=== PATIENT | female | born 1990 | race Caucasian/White ===

== ENCOUNTER 2016-07-13 18:03 | Outpatient (CLI) | payer MEDICAID ==
[2016-07-13 18:44] LABS: APPEARANCE,URINE SLIGHTLY-CLOUDY; BILIRUBIN,URINE NEGATIVE (NEGATIVE); GLUCOSE, URINE NEGATIVE (NEGATIVE); KETONES,URINE NEGATIVE (NEGATIVE); LEUKOCYTE ESTERASE,URINE TRACE (NEGATIVE); NITRITE,URINE NEGATIVE (NEGATIVE); PROTEIN,URINE NEGATIVE (NEGATIVE); URINE SPECIFIC GRAVITY 1.012; UROBILINOGEN,URINE NEGATIVE mg/dL (<2.0)
[2016-07-13 18:59] LABS: URINE BARBITURATES SCREEN NEGATIVE; URINE METHADONE SCREEN NEGATIVE; URINE OPIATES LOW NEGATIVE; URINE PHENCYCLIDINE SCREEN NEGATIVE
--- NOTE | 2016-07-13 20:00 | L&D Flow Sheet ---
LD Flowsheet Datetime Report Generated by CPN: 07/13/2016 20:00 Datetime: 07/13/2016 19:21 Monitor Interventions for FHR: Ultrasound Adjusted (June Lattibeaudeir, RN) Datetime: 07/13/2016 19:20 Vaginal Exam Dilatation (cm): 0.0 (June Lattibeaudeir, RN) Effacement (%): 0 (June Lattibeaudeir, RN) Station: -3 (June Lattibeaudeir, RN) Exam by: Merari Esparza RN (June Lattibeaudeir, RN) Vaginal Bleeding: None (June Lattibeaudeir, RN) Cervix, Consistency: Firm (June Lattibeaudeir, RN) Cervix, Position: Posterior (June Lattibeaudeir, RN) Datetime: 07/13/2016 19:13 NBP Sys/Maureen/Mean (mmHg): 124 (QS system process) : 82 (QS system process) : 99 (QS system process) Pulse: 75 (QS system process) LaborFlag: Antepartum (QS system process) Datetime: 07/13/2016 18:43 Vital Signs Stage of : Antepartum (Pamela Begum, RN) NBP Sys/Maureen/Mean (mmHg): 136 (QS system process) : 87 (QS system process) : 108 (QS system process) Pulse: 79 (QS system process) Uterine Activity Monitor Mode: External (Pamela Begum, RN) Monitor Interventions for UA: [place] Adjusted (Pamela Begum, RN) Resting Tone (Palpate): Relaxed (Pamela Castillond, RN) Assessment A Monitor Mode: External US (Pamela Begum, RN) Monitor Interventions for FHR: Ultrasound Adjusted (Pamela Begum, RN) FHR Baseline Rate : 155 (Pamela Reedn Kel, RN) Pain Pain Scale: 1 (Pamela Begum, RN) Pain Presence: Intermittent (Pamela Begum, RN) Pain Type: Cramping; Pressure (Pamela Begum, RN) Pain Location: Abdomen (Pamela Begum, RN) Pain Goal: 1 (Pamela Begum, RN) Pain Relief Measures: Comfort Measures (Pamela Begum, RN) Vaginal Bleeding: None (Pamela Begum, RN) Maternal Assessment Level of Consciousness: Fully Conscious (Pamela Begum, RN) DTR's/Clonus: DTRs 1+; No Clonus (Pamela Begum RN) Headache: Denies (Pamela Begum RN) Nausea/Vomiting: Denies (Pamela Begum RN) RUQ Epigastric Pain: Denies (Pamela Begum RN) Patient Care Patient Position/Activity: Left Tilt; Low Fowlers (Pamela Begum RN) Comfort Measures: Family Support (Pamela Begum RN) I/O Interventions: Popsicle; Clear Liquids Given; Up to BR (Pamela Begum RN) Teaching Instructional Method: Verbal; Patient Instructed; Family/Support Person Instructed; Verbalized Understanding (Pamela Begum RN) Plan of Care: Plan of Care Discussed; Labor (Pamela Begum RN) Unit Routine: [place] to Room; Call [place]; Bed; Visiting Policy; Waiting Areas; Phone/Cell Phone Use; Unit Personnel; Handwashing; Monitoring; Safety/Fall Risk Prevention; Diet/Nutrition Services; Bathroom Privileges (Pamela Begum RN) Pain Management: Pain Scale/Goals; Comfort Measures (Pamela Begum RN) Related: Common Discomforts of ; Maternal Physical Changes; Maternal Emotional Changes; Nutrition; Hydration; Activity and Rest (Pamela Begum RN) Communication Communication: RN at Bedside; RN Reviewed Strip (Pamela Begum RN) LaborFlag: Antepartum (QS system process)
== END 2016-07-13 20:30 | disposition home or self-care (01) ==
LOC: LC 18:03
PROVIDERS: ATTEND Obstetrics & Gynecology
PROC: 4A1HXCZ Monitoring of Products of Conception, Cardiac Rate, External Approach (ICD-10-PCS; principal; 2016-07-13)
DX: O26.893 Other specified pregnancy related conditions, third trimester (principal); R10.9 Unspecified abdominal pain; Z3A.33 33 weeks gestation of pregnancy
CPT/HCPCS: 59025; 80307; 81001

== ENCOUNTER 2016-07-19 14:21 | Outpatient (CLI) | payer MEDICAID ==
[2016-07-19 15:42] LABS: ABSOLUTE BASOPHILS # (AUTO) 0.1 10^3/uL (0.0-0.2); ABSOLUTE EOSINOPHILS # (AUTO) 0.1 10^3/uL (0.0-0.6); ABSOLUTE LYMPHOCYTES (AUTO) 2.8 10^3/uL (0.5-4.7); ABSOLUTE MONOCYTES (AUTO) 0.5 10^3/uL (0.1-1.4); ABSOLUTE NEUT (AUTO) 7.5 10^3/uL (1.7-8.2); BASOPHILS % (AUTO) 0.5 % (0-2); EOSINOPHILS % (AUTO) 0.7 % (0-6); LYMPHOCYTES % (AUTO) 25.7 % (13-45); MEAN CORPUSCULAR HEMOGLOBIN 29.7 pg (27.0-33.4); MEAN CORPUSCULAR HGB CONC 34.3 g/dL (32.0-36.0); MEAN CORPUSCULAR VOLUME 87 fl (80-97); MONOCYTES % (AUTO) 4.6 % (3-13); RED BLOOD COUNT 4.03 10^6/uL (3.72-5.28); RED CELL DISTRIBUTION WIDTH 13.5 % (11.5-14.0); SEGMENTED NEUTROPHILS % (AUTO) 68.5 % (42-78)
[2016-07-19 15:58] LABS: ALANINE AMINOTRANSFERASE 18 U/L (9-52); ALBUMIN 3.2 g/dL (3.5-5.0); ALKALINE PHOSPHATASE 175 U/L (38-126); ANION GAP 10 (5-19); ASPARTATE AMINO TRANSFERASE 15 U/L (14-36); BILIRUBIN,TOTAL 0.3 mg/dL (0.2-1.3); BLOOD UREA NITROGEN 7 mg/dL (7-20); CALCIUM 9.4 mg/dL (8.4-10.2); CARBON DIOXIDE 24 mmol/L (22-30); CHLORIDE 104 mmol/L (98-107); CREATININE RESULT 0.69 mg/dL (0.52-1.25); GLUCOSE 107 mg/dL (75-110); LDH 387 U/L (313-618); POTASSIUM 3.7 mmol/L (3.6-5.0); SODIUM 137.9 mmol/L (137-145); TOTAL PROTEIN 6.3 g/dL (6.3-8.2); URIC ACID 6.9 mg/dL (2.5-6.2)
--- NOTE | 2016-07-19 16:00 | L&D Flow Sheet ---
LD Flowsheet Datetime Report Generated by CPN: 07/19/2016 16:00 Datetime: 07/19/2016 15:51 NBP Sys/Maureen/Mean (mmHg): 136 (QS system process) : 72 (QS system process) : 96 (QS system process) Pulse: 72 (QS system process) LaborFlag: Antepartum (QS system process) Datetime: 07/19/2016 15:36 NBP Sys/Maureen/Mean (mmHg): 120 (QS system process) : 62 (QS system process) : 83 (QS system process) Pulse: 67 (QS system process) LaborFlag: Antepartum (QS system process) Datetime: 07/19/2016 15:21 NBP Sys/Maureen/Mean (mmHg): 117 (QS system process) : 64 (QS system process) : 84 (QS system process) Pulse: 70 (QS system process) LaborFlag: Antepartum (QS system process) Datetime: 07/19/2016 15:06 NBP Sys/Maureen/Mean (mmHg): 131 (QS system process) : 83 (QS system process) : 103 (QS system process) Pulse: 80 (QS system process) LaborFlag: Antepartum (QS system process) Datetime: 07/19/2016 14:47 NBP Sys/Maureen/Mean (mmHg): 131 (QS system process) : 85 (QS system process) : 103 (QS system process) Pulse: 75 (QS system process) LaborFlag: Antepartum (QS system process) Datetime: 07/19/2016 14:43 Monitor Interventions for UA: [place] Adjusted (Chinyere Stoll RN) Resting Tone (Palpate): Relaxed (Chinyere Stoll RN) Monitor Mode: External US (Chinyere Stoll RN) Pain Scale: 0 (Chinyere Stoll RN) Pain Presence: None/Denies (Chinyere Stoll RN) Pain Type: N/A (Chinyere Stoll RN) Pain Goal: 1 (Chinyere Stoll RN) Pain Relief Measures: Comfort Measures (Chinyere Stoll RN) Membrane Status: Intact (Annotations: intact per patient) (Chinyere Stoll RN) Vaginal Bleeding: None (Chinyere Stoll RN) Level of Consciousness: Fully Conscious (Chinyere Stoll RN) DTR's/Clonus: DTRs 2+; No Clonus (Chinyere Stoll RN) Headache: Denies (Chinyere Stoll RN) Breath Sounds, Left: Clear and Equal (Chinyere Stoll RN) Breath Sounds, Right: Clear and Equal (Chinyere Stoll RN) Nausea/Vomiting: Denies (Chinyere Stoll RN) RUQ Epigastric Pain: Denies (Chinyere Stoll RN) Oxygen Method: Room Air (Chinyere Stoll RN) Patient Position/Activity: Right Tilt; Semi-Fowlers (Chinyere Stoll, RN) I/O Interventions: Clear Liquids Given (Chinyere tSoll, RN) Instructional Method: Verbal (Chinyere Stoll, RN) Plan of Care: Plan of Care Discussed (Chinyere Stoll, RN) Unit Routine: [place] to Room; Call [place]; Bed; Visiting Policy; Waiting Areas (Chinyere Stoll, RN) Related: Common Discomforts of (Chinyere Stoll, RN) LaborFlag: Antepartum (QS system process)
[2016-07-19 16:27] LABS: APPEARANCE,URINE CLOUDY; BILIRUBIN,URINE NEGATIVE (NEGATIVE); GLUCOSE, URINE NEGATIVE (NEGATIVE); KETONES,URINE TRACE mg/dL (NEGATIVE); LEUKOCYTE ESTERASE,URINE SMALL (NEGATIVE); NITRITE,URINE NEGATIVE (NEGATIVE); PROTEIN,URINE 30 mg/dL (NEGATIVE); URINE SPECIFIC GRAVITY 1.021; UROBILINOGEN,URINE NEGATIVE mg/dL (<2.0)
[2016-07-19 16:49] LABS: URINE BARBITURATES SCREEN NEGATIVE; URINE METHADONE SCREEN NEGATIVE; URINE PHENCYCLIDINE SCREEN NEGATIVE
[2016-07-19 16:59] LABS: URINE OPIATES LOW UNCONFIRMED POSITIVE
== END 2016-07-19 17:11 | disposition home or self-care (01) ==
LOC: LC 14:21
PROVIDERS: ATTEND Student in an Organized Health Care Education/Training Program
PROC: 4A1HXCZ Monitoring of Products of Conception, Cardiac Rate, External Approach (ICD-10-PCS; principal; 2016-07-19)
DX: Z34.93 Encounter for supervision of normal pregnancy, unspecified, third trimester (principal); Z36 Encounter for antenatal screening of mother; Z3A.33 33 weeks gestation of pregnancy
CPT/HCPCS: 59025; 36415; 83615; 84550; 85025; 80053; 81001; 80307; G0480 ×2

== ENCOUNTER 2016-07-29 17:12 | Outpatient (CLI) | payer MEDICAID ==
--- NOTE | 2016-07-29 18:17 | Non Stress Test Report ---
Non Stress Test Datetime Report Generated by CPN: 07/29/2016 18:17 DEMOGRAPHIC EGA NST: 34.6 EGA NST: 33.3 INDICATION Indication for Study: Ordered by Provider Indication for Study: Ordered by Provider Indication for Study (NST) Other: HTN MONITORING Monitor Explained: Monitor Explained; Test Explained; Patient Verbalized Understanding Monitor Explained: Monitor Explained; Test Explained; Patient Verbalized Understanding Time on Monitor: 07/29/2016 17:42 Time on Monitor: 07/19/2016 14:34 Time off Monitor: 07/29/2016 18:05 Time off Monitor: 07/19/2016 16:59 NST Duration: 23 NST Duration: 145 NST INTERVENTIONS NST Interventions: PO Hydration NST Interventions: PO Hydration Physician Notified NST: Dr Rashid Physician Notified NST: A. Wen, CNM BABY A: [id number] BABY A Movement : Present Movement : Present Contraction Frequency : none Contraction Frequency : none FHR Baseline : 135 FHR Baseline : 150 Accelerations : 15X15 Accelerations : 15X15 Decelerations : None Decelerations : None Variability : Moderate 6-25bpm Variability : Moderate 6-25bpm NST Review: Meets Criteria for Reactive NST NST Review: Meets Criteria for Reactive NST NST Review and Verified By : Skye Sandhu [facility] NST Results: Reactive NST Results: Reactive NST REPORT Report Trigger: Send Report
== END 2016-07-29 18:09 | disposition home or self-care (01) ==
LOC: LC 17:12
PROVIDERS: ATTEND Obstetrics & Gynecology
PROC: 4A1HXCZ Monitoring of Products of Conception, Cardiac Rate, External Approach (ICD-10-PCS; principal; 2016-07-29)
DX: O16.3 Unspecified maternal hypertension, third trimester (principal); Z3A.34 34 weeks gestation of pregnancy
CPT/HCPCS: 59025

== ENCOUNTER 2016-08-05 11:39 | Outpatient (CLI) | payer MEDICAID | END 2016-08-05 12:22 | disposition home or self-care (01) | LOC: LC 11:39 | PROVIDERS: ATTEND Student in an Organized Health Care Education/Training Program | PROC: 4A1HXCZ Monitoring of Products of Conception, Cardiac Rate, External Approach (ICD-10-PCS; principal; 2016-08-05) | DX: O10.919 Unspecified pre-existing hypertension complicating pregnancy, unspecified trimester (principal) | CPT/HCPCS: 59025 ==

== ENCOUNTER 2016-08-10 09:59 | Inpatient (IN) | payer MEDICAID ==
[2016-08-10 10:54] LABS: APPEARANCE,URINE SLIGHTLY-CLOUDY; BILIRUBIN,URINE NEGATIVE (NEGATIVE); GLUCOSE, URINE NEGATIVE (NEGATIVE); KETONES,URINE TRACE mg/dL (NEGATIVE); LEUKOCYTE ESTERASE,URINE SMALL (NEGATIVE); NITRITE,URINE NEGATIVE (NEGATIVE); PROTEIN,URINE 100 mg/dL (NEGATIVE); URINE SPECIFIC GRAVITY 1.014; UROBILINOGEN,URINE NEGATIVE mg/dL (<2.0)
[2016-08-10 10:58] LABS: ABSOLUTE BASOPHILS # (AUTO) 0.1 10^3/uL (0.0-0.2); ABSOLUTE LYMPHOCYTES (AUTO) 2.1 10^3/uL (0.5-4.7); ABSOLUTE MONOCYTES (AUTO) 0.5 10^3/uL (0.1-1.4); ABSOLUTE NEUT (AUTO) 6.9 10^3/uL (1.7-8.2); BASOPHILS % (AUTO) 0.6 % (0-2); EOSINOPHILS % (AUTO) 0.5 % (0-6); HEMATOCRIT 36.5 % (36.0-47.0); HEMOGLOBIN 12.7 g/dL (12.0-15.5); HGB HCT DIFFERENCE 1.6; LYMPHOCYTES % (AUTO) 21.7 % (13-45); MEAN CORPUSCULAR HEMOGLOBIN 29.9 pg (27.0-33.4); MEAN CORPUSCULAR HGB CONC 34.9 g/dL (32.0-36.0); MEAN CORPUSCULAR VOLUME 86 fl (80-97); MONOCYTES % (AUTO) 5.4 % (3-13); RED BLOOD COUNT 4.26 10^6/uL (3.72-5.28); RED CELL DISTRIBUTION WIDTH 14.1 % (11.5-14.0); SEGMENTED NEUTROPHILS % (AUTO) 71.8 % (42-78); WHITE BLOOD COUNT 9.6 10^3/uL (4.0-10.5)
[2016-08-10 11:21] LABS: URINE BARBITURATES SCREEN NEGATIVE; URINE METHADONE SCREEN NEGATIVE; URINE OPIATES LOW NEGATIVE; URINE PHENCYCLIDINE SCREEN NEGATIVE
[2016-08-10 11:24] LABS: ALANINE AMINOTRANSFERASE 19 U/L (9-52); ALBUMIN 3.2 g/dL (3.5-5.0); ALKALINE PHOSPHATASE 200 U/L (38-126); ANION GAP 8 (5-19); ASPARTATE AMINO TRANSFERASE 16 U/L (14-36); BILIRUBIN,DIRECT 0.2 mg/dL (0.0-0.4); BILIRUBIN,TOTAL 0.3 mg/dL (0.2-1.3); BLOOD UREA NITROGEN 12 mg/dL (7-20); CALCIUM 10.1 mg/dL (8.4-10.2); CARBON DIOXIDE 23 mmol/L (22-30); CHLORIDE 107 mmol/L (98-107); CREATININE RESULT 0.67 mg/dL (0.52-1.25); GLUCOSE 75 mg/dL (75-110); LDH 474 U/L (313-618); POTASSIUM 4.4 mmol/L (3.6-5.0); SODIUM 137.9 mmol/L (137-145); TOTAL PROTEIN 6.2 g/dL (6.3-8.2); URIC ACID 8.2 mg/dL (2.5-6.2)
--- NOTE | 2016-08-10 15:16 | Non Stress Test Report ---
Non Stress Test Datetime Report Generated by CPN: 08/10/2016 15:16 DEMOGRAPHIC EGA NST: 36.4 EGA NST: 35.6 INDICATION Indication for Study: Chronic Hypertension; Ordered by Provider Indication for Study: Chronic Hypertension; Ordered by Provider Indication for Study (NST) Other: Pre-E workup Indication for Study (NST) Other: sent from office for repeat NST MONITORING Monitor Explained: Monitor Explained; Test Explained; Patient Verbalized Understanding Monitor Explained: Monitor Explained; Test Explained; Patient Verbalized Understanding Time on Monitor: 08/10/2016 10:17 Time on Monitor: 08/05/2016 11:50 Time off Monitor: 08/03/2016 15:15 NST Duration: -9782 NST INTERVENTIONS NST Interventions: None NST Interventions: PO Hydration; Reposition Patient BABY A Movement : Present Movement : Present Contraction Frequency : none FHR Baseline : 145 FHR Baseline : 140 Accelerations : 15X15 Accelerations : 15X15 Decelerations : None Variability : Moderate 6-25bpm Variability : Moderate 6-25bpm NST Review: Meets Criteria for Reactive NST NST Review: Meets Criteria for Reactive NST NST Review and Verified By : Skye Sandhu RN NST Review and Verified By : Jennifer Méndez RN NST Results: Reactive NST Results: Reactive NST REPORT Report Trigger: Send Report
[2016-08-10 21:09] LABS: ABSOLUTE EOSINOPHILS # (AUTO) 0.1 10^3/uL (0.0-0.6); ABSOLUTE LYMPHOCYTES (AUTO) 3.5 10^3/uL (0.5-4.7); ABSOLUTE MONOCYTES (AUTO) 0.6 10^3/uL (0.1-1.4); ABSOLUTE NEUT (AUTO) 7.4 10^3/uL (1.7-8.2); BASOPHILS % (AUTO) 0.3 % (0-2); EOSINOPHILS % (AUTO) 0.6 % (0-6); HEMATOCRIT 37.1 % (36.0-47.0); HEMOGLOBIN 12.7 g/dL (12.0-15.5); LYMPHOCYTES % (AUTO) 30.3 % (13-45); MEAN CORPUSCULAR HEMOGLOBIN 29.4 pg (27.0-33.4); MEAN CORPUSCULAR HGB CONC 34.3 g/dL (32.0-36.0); MEAN CORPUSCULAR VOLUME 86 fl (80-97); MONOCYTES % (AUTO) 4.8 % (3-13); RED BLOOD COUNT 4.32 10^6/uL (3.72-5.28); RED CELL DISTRIBUTION WIDTH 14.2 % (11.5-14.0); WHITE BLOOD COUNT 11.6 10^3/uL (4.0-10.5)
[2016-08-10 21:33] LABS: ALANINE AMINOTRANSFERASE 20 U/L (9-52); ALBUMIN 3.5 g/dL (3.5-5.0); ALKALINE PHOSPHATASE 198 U/L (38-126); ANION GAP 11 (5-19); ASPARTATE AMINO TRANSFERASE 16 U/L (14-36); BILIRUBIN,DIRECT 0.1 mg/dL (0.0-0.4); BILIRUBIN,TOTAL 0.2 mg/dL (0.2-1.3); BLOOD UREA NITROGEN 14 mg/dL (7-20); CALCIUM 10.3 mg/dL (8.4-10.2); CARBON DIOXIDE 23 mmol/L (22-30); CHLORIDE 105 mmol/L (98-107); GLUCOSE 88 mg/dL (75-110); LDH 482 U/L (313-618); POTASSIUM 4.3 mmol/L (3.6-5.0); SODIUM 139.2 mmol/L (137-145); TOTAL PROTEIN 6.5 g/dL (6.3-8.2); URIC ACID 8.5 mg/dL (2.5-6.2)
[2016-08-10] MEDS ORDERED: ZOLPIDEM TARTRATE 5 MG TABLET ONE (22:52)
[2016-08-10] MEDS ORDERED: DINOPROSTONE 10 MG VAGINAL INSERT.SR PV PRN (22:54)
[2016-08-10] MEDS ORDERED: OXYTOCIN/NORMAL SALINE 1,000 ML IV PRN (22:55)
[2016-08-10] MEDS ORDERED: ACETAMINOPHEN 325 MG TABLET PO PRN (22:55)
[2016-08-10] MEDS ORDERED: MAG HYDROX/AL HYDROX/SIMETH SUSP 30 ML UDCUP PO PRN (22:55)
[2016-08-10] MEDS ORDERED: RINGERS SOLUTION,LACTATED 1,000 ML IV PRN (22:55)
[2016-08-10] MEDS ORDERED: RINGERS SOLUTION,LACTATED 300 ML IV ONE (22:55)
[2016-08-10] MEDS ORDERED: DINOPROSTONE 10 MG VAGINAL INSERT.SR ONE (23:11)
[2016-08-10] MEDS: ZOLPIDEM TARTRATE 5 MG TABLET PO SCH (23:13)
[2016-08-10] MEDS ORDERED: ZOLPIDEM TARTRATE 5 MG TABLET PO ONE (23:15)
[2016-08-11] MEDS ORDERED: ONDANSETRON HCL INJ/PF 4 MG/2 ML SDV ONE ×4 (02:23→22:07)
[2016-08-11 07:56] LABS: ABSOLUTE LYMPHOCYTES (AUTO) 2.3 10^3/uL (0.5-4.7); ABSOLUTE MONOCYTES (AUTO) 0.4 10^3/uL (0.1-1.4); ABSOLUTE NEUT (AUTO) 6.9 10^3/uL (1.7-8.2); BASOPHILS % (AUTO) 0.2 % (0-2); EOSINOPHILS % (AUTO) 0.3 % (0-6); HEMATOCRIT 36.1 % (36.0-47.0); HEMOGLOBIN 12.5 g/dL (12.0-15.5); HGB HCT DIFFERENCE 1.4; LYMPHOCYTES % (AUTO) 24.3 % (13-45); MEAN CORPUSCULAR HEMOGLOBIN 29.8 pg (27.0-33.4); MEAN CORPUSCULAR HGB CONC 34.6 g/dL (32.0-36.0); MEAN CORPUSCULAR VOLUME 86 fl (80-97); RED BLOOD COUNT 4.19 10^6/uL (3.72-5.28); RED CELL DISTRIBUTION WIDTH 14.4 % (11.5-14.0); SEGMENTED NEUTROPHILS % (AUTO) 71.2 % (42-78); WHITE BLOOD COUNT 9.6 10^3/uL (4.0-10.5)
--- NOTE | 2016-08-11 08:01 | L&D Flow Sheet ---
LD Flowsheet Datetime Report Generated by CPN: 08/11/2016 08:00 Datetime: 08/11/2016 07:59 NBP Sys/Maureen/Mean (mmHg): 156 (QS system process) : 110 (QS system process) : 129 (QS system process) Pulse: 88 (QS system process) LaborFlag: Labor (QS system process) Datetime: 08/11/2016 07:40 Stage of : Labor (Pamela Begum RN) Patient Care Comments: PT GIVEN BREAKFAST TRAY (Pamela Begum RN) Communication: RN at Bedside; RN Reviewed Strip (Pamela Begum RN) Datetime: 08/11/2016 07:30 Stage of : Antepartum (Pamela Begum RN) NBP Sys/Maureen/Mean (mmHg): 157 (QS system process) : 101 (QS system process) : 123 (QS system process) Pulse: 111 (QS system process) Monitor Mode: External (Pamela Begum RN) Monitor Interventions for UA: [place] Adjusted (Pamela Begum RN) Frequency (min): IRREG (Pamela Begum RN) Quality: Mild (Pamela Begum RN) Duration (sec): 40-120 (Pamela Begum RN) Resting Tone (Palpate): Relaxed (Pamela Begum RN) Monitor Mode: External US (Pamela Begum RN) Monitor Interventions for FHR: Ultrasound Adjusted (Pamela Begum RN) FHR Baseline Rate : 155 (Pamela Begum RN) Variability: Moderate 6-25 bpm (Pamela Begum, YUMI) Accelerations: None (Pamela Begum RN) Decelerations: None (Pamela Begum RN) Pain Scale: 0 (Pamela Begum RN) Pain Presence: None/Denies (Pamela Begum RN) Pain Type: N/A (Pamela Begum RN) Pain Goal: 1 (Pamela Felecia Roulund, RN) Pain Relief Measures: Comfort Measures (Pamela Begum, YUMI) Pain Coping: Talking Through Contractions (Pamela Begum, RN) Membrane Status: Intact (Pamela Begum, RN) Vaginal Bleeding: None (Pamela Begum, RN) Level of Consciousness: Fully Conscious (Pamela Begum, YUMI) DTR's/Clonus: DTRs 1+; No Clonus (Pamela Begum, RN) Headache: Denies (Pamela Begum RN) Breath Sounds, Left: Clear and Equal (Pamela Begum RN) Breath Sounds, Right: Clear and Equal (Pamela Begum, RN) Nausea/Vomiting: Denies (Pamela Begum, YUMI) RUQ Epigastric Pain: Denies (Pamela Begum, YUMI) IV/Blood Work: IV Infusing per Order (Pamela Begum, YUMI) Oxygen Method: Room Air (Pamela Begum RN) Patient Position/Activity: ROCKING CHAIR (Pamela Begum, YUMI) Comfort Measures: Family Support (Pamela Begum, YUMI) Hygiene: Underpad Changed (Pamela Begum, RN) I/O Interventions: Clear Liquids Given; Up to BR (Pamela Begum, YUMI) Anesthesia Plans: Epidural (Pamela Begum, YUMI) Instructional Method: Verbal; Patient Instructed; Family/Support Person Instructed; Verbalized Understanding (Pamela Begum, YUMI) Plan of Care: Plan of Care Discussed; Labor; Induction (Pamela Begum, YUMI) Unit Routine: Unit Personnel; Monitoring; IV Pumps; Safety/Fall Risk Prevention; Diet/Nutrition Services; Bathroom Privileges; Medications (Pamela Begum, YUMI) Labor/Induction: Labor Stages; Cervical Ripening; Induction (Pamela Begum, YUMI) Pain Management: Epidural; Pain Scale/Goals; Comfort Measures (Pamela Begum, YUMI) Medications: Cervical Ripening; Pitocin (Pamela Begum, YUMI) Communication: RN at Bedside; RN Reviewed Strip (Pamela Felecia Roulund, RN) LaborFlag: Antepartum (QS system process) Datetime: 08/11/2016 07:00 Respirations: 18 (Justina Stanton) Monitor Mode: External; Palpation (Justina Stanton) Monitor Interventions for UA: [place] Adjusted (Justina Stanton) Frequency (min): Unable to determine (Shelton Lantigua RN) Frequency (min): none (Justina Stanton) Resting Tone (Palpate): Relaxed (Justina Stanton) Monitor Mode: External US (Shelton Lantigua RN) Monitor Mode: External US (Justina Stanton) Monitor Interventions for FHR: Ultrasound Adjusted (Justina Stanton) FHR Baseline Rate : 150 (Shelton Lantigua RN) FHR Baseline Rate : 150 (Justina Stanton) Variability: Moderate 6-25 bpm (Shelton Lantigua RN) Variability: Moderate 6-25 bpm (Justina Stanton) Accelerations: 10X10 (Justina Stanton) Decelerations: None (Justina Stanton) Patient Position/Activity: Left Tilt (Justina Stanton) LaborFlag: Antepartum (QS system process) Datetime: 08/11/2016 06:59 NBP Sys/Maureen/Mean (mmHg): 170 (QS system process) : 105 (QS system process) : 131 (QS system process) Pulse: 94 (QS system process) LaborFlag: Antepartum (QS system process) Datetime: 08/11/2016 06:30 Monitor Mode: External (Shelton Lantigua, RN) Frequency (min): x2 (Shelton Lantigua, RN) Quality: Mild/Moderate (Shelton Lantigua, RN) Duration (sec): 60-70 (Shelton Lantigua, RN) Monitor Mode: External US (Shelton Lantigua, RN) FHR Baseline Rate : 155 (Shelton Rhina, RN) Variability: Moderate 6-25 bpm (Shelton Rhina, RN) Datetime: 08/11/2016 06:29 NBP Sys/Maureen/Mean (mmHg): 157 (QS system process) : 102 (QS system process) : 123 (QS system process) Pulse: 88 (QS system process) LaborFlag: Antepartum (QS system process) Datetime: 08/11/2016 06:20 Communication: RN at Bedside (Shelton Lantigua, RN) Communication Comments: Adjusting FHR monitor (Shelton Rhina, RN) Datetime: 08/11/2016 06:00 Monitor Mode: External (Shelton Rhina, RN) Frequency (min): 5-5.5 (Shelton Rhina, RN) Quality: Mild/Moderate (Shelton Rhina, RN) Duration (sec): 60-90 (Shelton Rhina, RN) Monitor Mode: External US (Shelton Rhina, RN) FHR Baseline Rate : 155 (Shelton Rhina, RN) Variability: Moderate 6-25 bpm (Shelton Rhina, RN) Accelerations: None (Shelton Rhina, RN) Datetime: 08/11/2016 05:30 Monitor Mode: External (Shelton Rhina, RN) Frequency (min): 3.5-4.5 (Shelton Rhina, RN) Quality: Mild/Moderate (Shelton Rhina, RN) Duration (sec): 60-110 (Shelton Rhina, RN) Monitor Mode: External US (Shelton Rhina, RN) FHR Baseline Rate : 150 (Shelton Rhina, RN) Variability: Moderate 6-25 bpm (Shelton Rhina, RN) Accelerations: 15X15 (Shelton Rhina, RN) Datetime: 08/11/2016 05:29 NBP Sys/Maureen/Mean (mmHg): 145 (QS system process) : 93 (QS system process) : 113 (QS system process) Pulse: 76 (QS system process) LaborFlag: Antepartum (QS system process) Datetime: 08/11/2016 05:00 Monitor Mode: External (Shelton Rhina, RN) Frequency (min): 2-6 (Shelton Lantigua RN) Quality: Mild/Moderate (Shelton Lantigua, RN) Duration (sec): 60-90 (Shelton Lantigua RN) Resting Tone (Palpate): Relaxed (Shelton Lantigua RN) Monitor Mode: External US (Shelton Lantigua RN) FHR Baseline Rate : 145 (Shelton Lantigua, RN) Variability: Moderate 6-25 bpm (Shelton Lantigua, RN) Accelerations: Prolonged (Shelton Lantigua, RN) Datetime: 08/11/2016 04:59 NBP Sys/Maureen/Mean (mmHg): 137 (QS system process) : 89 (QS system process) : 110 (QS system process) Pulse: 71 (QS system process) LaborFlag: Antepartum (QS system process) Datetime: 08/11/2016 04:29 NBP Sys/Maureen/Mean (mmHg): 160 (QS system process) : 78 (QS system process) : 112 (QS system process) Pulse: 59 (QS system process) Frequency (min): Unable to determine (Shelton Rhina, RN) Monitor Mode: External US (Shelton Lantigua, RN) FHR Baseline Rate : 140 (Shelton Rhina, RN) Variability: Moderate 6-25 bpm (Shelton Rhina, RN) Accelerations: Prolonged (Shelton Rhina, RN) LaborFlag: Antepartum (QS system process) Datetime: 08/11/2016 04:08 NBP Sys/Maureen/Mean (mmHg): 167 (QS system process) : 95 (QS system process) : 125 (QS system process) Pulse: 58 (QS system process) LaborFlag: Antepartum (QS system process) Datetime: 08/11/2016 03:59 Monitor Mode: External (Shelton Rhina, RN) Frequency (min): None Noted (Shelton Rhina, RN) Monitor Mode: External US (Shelton Rhina, RN) FHR Baseline Rate : 150 (Shelton Rhina, RN) Variability: Minimal - Undetectable to <=5 bpm (Shelton Rhina, RN) Accelerations: None (Shelton Rhina, RN) Datetime: 08/11/2016 03:54 I/O Interventions: Up to BR (Shelton Lantigua, YUMI) Datetime: 08/11/2016 03:29 NBP Sys/Maureen/Mean (mmHg): 162 (QS system process) : 101 (QS system process) : 124 (QS system process) Pulse: 58 (QS system process) Monitor Mode: External (Shelton Lantigua RN) Frequency (min): None Noted (Shelton Lantigua RN) Monitor Mode: External US (Shelton Lantigua RN) FHR Baseline Rate : 150 (Shelton Lantigua RN) Variability: Minimal - Undetectable to <=5 bpm (Shelton Lantigua RN) LaborFlag: Antepartum (QS system process) Datetime: 08/11/2016 03:28 NBP Sys/Maureen/Mean (mmHg): 174 (QS system process) : 101 (QS system process) : 131 (QS system process) Pulse: 57 (QS system process) LaborFlag: Antepartum (QS system process) Datetime: 08/11/2016 03:27 Antiemetics/Antacids: Zofran IV (mg) @ 8 (Shelton Rhina, RN) Datetime: 08/11/2016 03:04 Communication: RN at Bedside (Shelton Lantigua, RN) Communication Comments: Adjusting FHR monitor (Shelton Lantigua, RN) Datetime: 08/11/2016 02:59 NBP Sys/Maureen/Mean (mmHg): 172 (QS system process) : 106 (QS system process) : 132 (QS system process) Pulse: 65 (QS system process) Monitor Mode: External (Shelton Rhina, RN) Frequency (min): None Noted (Shelton Rhina, RN) Monitor Mode: External US (Shelton Rhina, RN) FHR Baseline Rate : 145 (Shelton Rhina, RN) Variability: Moderate 6-25 bpm (Shelton Rhina, RN) LaborFlag: Antepartum (QS system process) Datetime: 08/11/2016 02:30 Monitor Mode: External (Shelton Rhina, RN) Frequency (min): None Noted (Shelton Rhina, RN) Contraction Comments: Pt denies any contractions at this time (Shelton Rhina, RN) Monitor Mode: External US (Shelton Rhina, RN) FHR Baseline Rate : 145 (Shelton Rhina, RN) Variability: Moderate 6-25 bpm (Shelton Rhina, RN) Accelerations: None (Shelton Rhina, RN) Datetime: 08/11/2016 02:29 NBP Sys/Maureen/Mean (mmHg): 137 (QS system process) : 97 (QS system process) : 113 (QS system process) Pulse: 86 (QS system process) LaborFlag: Antepartum (QS system process) Datetime: 08/11/2016 02:28 Comments: FHR monitor adjusted (Shelton Lantigua, RN) Datetime: 08/11/2016 02:21 Communication Comments: Pt vomiting, nurse at bedside. (Shelton Lantigua, RN) Datetime: 08/11/2016 02:09 I/O Interventions: Up to BR (Shelton Rhina, RN) Datetime: 08/11/2016 02:00 Monitor Mode: External (Shelton Lantigua, RN) Frequency (min): None Noted (Shelton Lantigua, RN) Contraction Comments: Pt denies any contractions at this time (Shelton Lantigua, RN) Monitor Mode: External US (Shelton Lantigua, RN) FHR Baseline Rate : 150 (Shelton Lantigua, RN) Variability: Moderate 6-25 bpm (Shelton Rhina, RN) Accelerations: 10X10 (Shelton Rhina, RN) Datetime: 08/11/2016 01:59 NBP Sys/Maureen/Mean (mmHg): 152 (QS system process) : 106 (QS system process) : 125 (QS system process) Pulse: 86 (QS system process) LaborFlag: Antepartum (QS system process) Datetime: 08/11/2016 01:30 Monitor Mode: External (Shelton Lantigua RN) Frequency (min): None Noted (Shelton Lantigua RN) Contraction Comments: Pt denies feeling any contractions at this time (Shelton Lantigua RN) Monitor Mode: External US (Shelton Lantigua RN) FHR Baseline Rate : 155 (Shelton Lantigua RN) Variability: Moderate 6-25 bpm (Shelton Lantigua RN) Accelerations: None (Shelton Lantigua, RN) Datetime: 08/11/2016 01:29 NBP Sys/Maureen/Mean (mmHg): 183 (QS system process) : 93 (QS system process) : 126 (QS system process) Pulse: 71 (QS system process) LaborFlag: Antepartum (QS system process) Datetime: 08/11/2016 00:59 NBP Sys/Maureen/Mean (mmHg): 173 (QS system process) : 93 (QS system process) : 126 (QS system process) Pulse: 72 (QS system process) Monitor Mode: External (Shelton Lantigua RN) Frequency (min): None Noted (Shelton Lantigua RN) Resting Tone (Palpate): Relaxed (Shelton Lantigua RN) Contraction Comments: Pt denies feeling any contractions (Shelton Lantigua RN) Monitor Mode: External US (Shelton Lantigua RN) FHR Baseline Rate : 155 (Shelton Lantigua, RN) Variability: Moderate 6-25 bpm (Shelton Lantigua, RN) Accelerations: 15X15 (Shelton Lantigua RN) LaborFlag: Antepartum (QS system process) Datetime: 08/11/2016 00:33 Communication: RN at Bedside (Shelton Lantigua RN) Communication Comments: adjusting FHR monitor (Shelton Lantigua RN) Datetime: 08/11/2016 00:29 NBP Sys/Maureen/Mean (mmHg): 170 (QS system process) : 92 (QS system process) : 125 (QS system process) Pulse: 64 (QS system process) Monitor Mode: External US (Shelton Rhina, RN) FHR Baseline Rate : 145 (Shelton Rhina, RN) Variability: Moderate 6-25 bpm (Shelton Rhina, RN) Accelerations: None (Shelton Rhina, RN) LaborFlag: Antepartum (QS system process) Datetime: 08/10/2016 23:59 NBP Sys/Maureen/Mean (mmHg): 158 (QS system process) : 85 (QS system process) : 115 (QS system process) Pulse: 58 (QS system process) Monitor Mode: External (Shelton Rhina, RN) Frequency (min): None (Shelton Rhina, RN) Monitor Mode: External US (Shelton Rhina, RN) FHR Baseline Rate : 145 (Shelton Rhina, RN) Variability: Moderate 6-25 bpm (Shelton Rhina, RN) Accelerations: None (Shelton Rhina, RN) LaborFlag: Antepartum (QS system process) Datetime: 08/10/2016 23:56 Communication: RN at Bedside (Shelton Lantigua RN) Communication Comments: ajdusting FHR monitor (Shelton Lantigua RN) Datetime: 08/10/2016 23:44 IV/Blood Work: IV Infusing per Order; New IV Bag Hung (Shelton Lantigua RN) Patient Position/Activity: Left Tilt; Semi-Fowlers (Shelton Lantigua RN) Patient Care Comments: LR infusing at 125 mL/hr (Shelton Lantigua RN) Datetime: 08/10/2016 23:29 Monitor Mode: External (Shelton Lantigua RN) Frequency (min): None (Shelton Lantigua RN) Monitor Mode: External US (Shelton Rhina, RN) FHR Baseline Rate : 160 (Shelton Lantigua, RN) Variability: Moderate 6-25 bpm (Shelton Gayford, RN) Accelerations: None (Shelton Lantigua, RN) Decelerations: Prolonged (Shelton Lantigua, RN) Datetime: 08/10/2016 23:24 Analgesics/Sedatives: Ambien (mg) @ 10 (Shelton Lantigua, RN) Datetime: 08/10/2016 23:23 Cervical Ripening Agents: Cervidil (Shelton Lantigua, RN) Datetime: 08/10/2016 23:18 I/O Interventions: Up to BR (Shelton Lantigua RN) Datetime: 08/10/2016 23:01 Dilatation (cm): 2.5 (Shelton Lantigua RN) Effacement (%): 50 (Shelton Lantigua RN) Station: -3 (June Esparza RN) Exam by: Merari Steel RN (Shelton Lantigua RN) Datetime: 08/10/2016 22:59 NBP Sys/Maureen/Mean (mmHg): 175 (QS system process) : 103 (QS system process) : 133 (QS system process) Pulse: 69 (QS system process) Monitor Mode: External (Shelton Lantigua RN) Frequency (min): None (Shelton Lantigua RN) Resting Tone (Palpate): Relaxed (Shelton Lantigua RN) Monitor Mode: External US (Shelton Lantigua RN) FHR Baseline Rate : 150 (Shelton Lantigua RN) Variability: Moderate 6-25 bpm (Shelton Rhina, RN) Accelerations: 15X15 (Shelton Lantigua, RN) LaborFlag: Antepartum (QS system process) Datetime: 08/10/2016 22:30 Pain Scale: 1 (Shelton Lantigua RN) Pain Presence: Intermittent (Shelton Lantigua RN) Pain Type: Contraction (Shelton Lantigua, RN) Pain Location: Abdomen; Back (Shelton Lantigua, RN) Pain Goal: 0 (Shelton Lantigua RN) Pain Coping: Talking Through Contractions; Breathing Through Contractions (Shelton Lantigua, RN) Vaginal Bleeding: None (Shelton Lantigua, RN) Level of Consciousness: Fully Conscious (Shelton Lantigua, RN) Headache: Denies (Shelton Lantigua, RN) Nausea/Vomiting: Denies (Shelton Lantigua, RN) RUQ Epigastric Pain: Denies (Shelton Lantigua, RN) LaborFlag: Antepartum (QS system process) Datetime: 08/10/2016 22:29 NBP Sys/Maureen/Mean (mmHg): 149 (QS system process) : 103 (QS system process) : 122 (QS system process) Pulse: 68 (QS system process) LaborFlag: Antepartum (QS system process)
[2016-08-11 08:09] LABS: ALANINE AMINOTRANSFERASE 18 U/L (9-52); ALBUMIN 3.2 g/dL (3.5-5.0); ALKALINE PHOSPHATASE 195 U/L (38-126); ANION GAP 11 (5-19); ASPARTATE AMINO TRANSFERASE 17 U/L (14-36); BILIRUBIN,DIRECT 0.2 mg/dL (0.0-0.4); BILIRUBIN,TOTAL 0.3 mg/dL (0.2-1.3); BLOOD UREA NITROGEN 12 mg/dL (7-20); CALCIUM 9.5 mg/dL (8.4-10.2); CARBON DIOXIDE 22 mmol/L (22-30); CHLORIDE 106 mmol/L (98-107); CREATININE RESULT 0.67 mg/dL (0.52-1.25); GLUCOSE 95 mg/dL (75-110); LDH 501 U/L (313-618); POTASSIUM 4.3 mmol/L (3.6-5.0); SODIUM 139.4 mmol/L (137-145); TOTAL PROTEIN 6.4 g/dL (6.3-8.2); URIC ACID 8.5 mg/dL (2.5-6.2)
[2016-08-11] MEDS ORDERED: METHYLDOPA 250 MG TABLET ONE (10:07)
[2016-08-11] MEDS: METHYLDOPA 250 MG TABLET PO SCH (10:23)
--- NOTE | 2016-08-11 11:04 | L&D Progress Notes ---
PROGRESS NOTES Datetime Report Generated by CPN: 08/11/2016 11:03 PROGRESS NOTE Comment: 25 yo admitted for IOL EDC 09/04/16 EGA 36.5 PMHX- gestational htn- aldomet 500 mg po bid THC in urine cervidil last night reviewed bps with Dr. Stoll pt was off of her aldomet for 24 hours, resume aldomet labs reviewed uric acid 8.2 / elevated cervidil removed will reevaluate cervix and establish plan of induction pt consents MEMBRANES Membranes: Intact Membranes: Intact FETUS A FHR - Baseline: 120 Monitoring: External US Variability: Moderate 6-25bpm Accelerations: 15X15 Decelerations: None FHR Category: Category I : 36.4 SIGNATURE SIGNATURE: [id number];[id number] SIGNATURE: [id number] SIGNATURE: [id number] SIGNATURE: [id number] Assignment: Radha Stoll MD Signature: with User ID: [email or web address] : with User ID: [email or web address]
[2016-08-11] MEDS ORDERED: OXYTOCIN/NORMAL SALINE 20 UNIT/1,000 ML RTUINJ ONE ×3 (12:10→22:42)
--- NOTE | 2016-08-11 18:03 | L&D Progress Notes ---
PROGRESS NOTES Datetime Report Generated by CPN: 08/11/2016 18:03 PROGRESS NOTE Procedures: Artificial ROM; Intrauterine Pressure Catheter; Scalp Electrode Plan Other: stop pitocin Informed Consent Obtained: Vaginal Delivery; Section Delivery; Risks, Benefits and Alternatives Discussed Comment: repetitive late decelerations 02 via facemask pitocin off pt repositioned cervical exam unchanged AROm clear fse placed without difficulty iupc placed abdomen soft and nontender bp 166/91 pt denies headache or blurred vision pt consented for procedures Dr. Stoll notified of vitals family at bedside VAGINAL EXAM Dilatation: 3 Effacement: 75 Station: -2 MEMBRANES Membranes: Ruptured Amniotic Fluid Color: Clear FETUS A Monitoring: Internal Scalp Electrode Variability: Minimal - Undetectable to <=5bpm Decelerations: Late FETUS C SIGNATURE: [id number];[id number] Assignment: Radha Stoll MD Signature: with User ID: [email or web address] : with User ID: [email or web address]
[2016-08-11] MEDS ORDERED: BUPIVACAINE HCL 0.25 % INJ/PF (2.5 MG/1 ML) 30 ML VIAL ONE (18:11)
[2016-08-11] MEDS ORDERED: FENTANYL/BUPIVACAINE/NS/PF 0 MCG/0 ML RTUINJ EPI ONE (18:11)
[2016-08-11] MEDS ORDERED: EPHEDRINE SULFATE INJ 50 MG/1 ML AMPULE ONE (18:11)
[2016-08-11] MEDS ORDERED: GENTAMICIN SULFATE INJ 80 MG/2 ML VIAL ONE (19:24)
[2016-08-11] MEDS ORDERED: CLINDAMYCIN 900 MG/D5W RTU 50 ML IV ONE (19:24)
[2016-08-11] MEDS ORDERED: CITRIC ACID/SODIUM CITRATE ORAL SOLN 15 ML UDCUP ONE (19:24)
[2016-08-11] MEDS ORDERED: MIDAZOLAM 2 MG/2 ML INJ ONE (19:36)
[2016-08-11] MEDS ORDERED: OXYTOCIN 10 UNIT/ML VIAL ONE ×2 (19:36→19:38)
[2016-08-11] MEDS ORDERED: FENTANYL CITRATE INJ/PF 100 MCG/2 ML AMPUL ONE (19:36)
[2016-08-11] MEDS ORDERED: MISOPROSTOL 0.2 MG TABLET ONE (19:38)
--- NOTE | 2016-08-11 20:03 | L&D Flow Sheet ---
LD Flowsheet Datetime Report Generated by CPN: 08/11/2016 20:00 Datetime: 08/11/2016 19:43 NBP Sys/Maureen/Mean (mmHg): 134 (QS system process) : 89 (QS system process) : 107 (QS system process) Pulse: 97 (QS system process) Antibiotics: Gentamicin IV (mg) @ 100 (Shelton Lantigua RN) LaborFlag: Labor (QS system process) Datetime: 08/11/2016 19:37 Antibiotics: Clindamycin IV 900 mg (Shelton Rhina, RN) Datetime: 08/11/2016 19:36 I/O Interventions: Nettles Cath Inserted (Shelton Lantigua, RN) Patient Care Comments: Placed by Igor Brtel (Shelton Rhina, RN) Datetime: 08/11/2016 19:34 Antiemetics/Antacids: Bicitra 15 ml PO (Shelton Rhina, RN) Datetime: 08/11/2016 19:14 NBP Sys/Maureen/Mean (mmHg): 145 (QS system process) : 89 (QS system process) : 112 (QS system process) Pulse: 69 (QS system process) LaborFlag: Labor (QS system process) Datetime: 08/11/2016 19:07 Communication: Report Given to @ Juan MONGE, RN _ S PANTERA, RN- CARE RELINQUISHED (Pamela Begum RN) Datetime: 08/11/2016 19:04 Stage of : Labor (Pamela eBgum RN) Respirations: 18 (Pamela Begum RN) Monitor Mode: Internal (Pamela Begum RN) Frequency (min): 3-4.5 (Pamela Begum RN) Quality: Moderate (Pamela Begum RN) Duration (sec): 60-80 (Pamela Begum RN) Resting Tone (Palpate): Relaxed (Pamela Begum RN) Monitor Mode: Internal Scalp Electrode (Pamela Begum RN) FHR Baseline Rate : 170 (Pamela Begum RN) FHR Baseline Changes: Tachycardia (Pamela Begum RN) Variability: Minimal - Undetectable to <=5 bpm (Pamela Begum RN) Accelerations: None (Pamela Begum RN) Decelerations: None (Pamela Begum RN) Pain Scale: 3 (Pamela Begum, YUMI) Pain Presence: Intermittent (Pamela Begum RN) Pain Type: Contraction (Pamela Begum RN) Pain Location: Abdomen (Pamela Begum, RN) Pain Relief Measures: Comfort Measures (Pamela Begum, YUMI) Pain Coping: Talking Through Contractions; Breathing Through Contractions (Pamela Begum, YUMI) IV/Blood Work: IV Infusing per Order (Pamela Begum, YUMI) Patient Position/Activity: Right Lateral; Low Fowlers (Pamela Begum, YUMI) Comfort Measures: Breathing/Relaxation; Family Support (Pamela Begum, YUMI) Provider Reviewed Strip: Yes (Pamela Begum RN) Communication: RN at Bedside; RN Reviewed Strip; Provider at Bedside (Pamela Begum, YUMI) Communication Comments: C/SECTION CALLED (Pamela Begum RN) LaborFlag: Labor (QS system process) Datetime: 08/11/2016 18:56 NBP Sys/Maureen/Mean (mmHg): 174 (QS system process) : 87 (QS system process) : 120 (QS system process) Pulse: 70 (QS system process) LaborFlag: Labor (QS system process) Datetime: 08/11/2016 18:51 NBP Sys/Maureen/Mean (mmHg): 181 (QS system process) : 113 (QS system process) : 142 (QS system process) Pulse: 67 (QS system process) LaborFlag: Labor (QS system process) Datetime: 08/11/2016 18:50 Stage of : Labor (Pamela Begum RN) IV/Blood Work: New IV Bag Hung (Pamela Begum RN) Patient Care Comments: LR @BOLUS (Pamela Begum RN) Communication: RN at Bedside; RN Reviewed Strip (Pamela Begum RN) Datetime: 08/11/2016 18:45 Stage of : Labor (Pamela Begum RN) Respirations: 18 (Pamela Begum RN) Temperature (F): 98.7 (Pamela Begum RN) Temperature (C): 37.1 (QS system process) Monitor Mode: Internal (Pamela Begum RN) Frequency (min): 3-4.5 (Pamela Begum RN) Quality: Moderate (Pamela Begum RN) Duration (sec): 60-100 (Pamela Begum RN) Resting Tone (Palpate): Relaxed (Pamela Begum RN) Monitor Mode: Internal Scalp Electrode (Pamela Begum RN) FHR Baseline Rate : 165 (Pamela Begum RN) FHR Baseline Changes: No Baseline Change (Pamela Begum RN) Variability: Minimal - Undetectable to <=5 bpm (Pamela Begum RN) Accelerations: None (Pamela Begum RN) Decelerations: Late (Pamela Begum RN) Pain Relief Measures: Comfort Measures (Pamela Begum RN) Pain Coping: Breathing Through Contractions (Pamela Begum RN) Patient Position/Activity: Right Lateral; Low Fowlers (Pamela Begum RN) Comfort Measures: Breathing/Relaxation; Family Support (Pamela Begum RN) Communication: RN at Bedside; RN Reviewed Strip (Pamela Begum RN) LaborFlag: Labor (QS system process) Datetime: 08/11/2016 18:39 Stage of : Labor (Pamela Begum RN) Actions for Decelerations: Side to Side (Pamela Begum RN) IV/Blood Work: New IV Bag Hung (Pamela Begum RN) Patient Care Comments: D5LR I@ BOLUS (Pamela Begum RN) Communication: RN at Bedside; RN Reviewed Strip (Pamela Begum RN) Datetime: 08/11/2016 18:30 Stage of : Labor (Pamela Begum RN) Monitor Mode: Internal (Pamela Begum RN) Frequency (min): 3-4 (Pamela Begum RN) Quality: Moderate (Pamela Begum RN) Duration (sec): 60-70 (Pamela Begum RN) Resting Tone (Palpate): Relaxed (Pamela Begum RN) Resting Tone IUP (mmHg): 20 (Pamela Begum RN) Intensity IUP (mmHg): 60 (Pamela Begum RN) Monitor Mode: Internal Scalp Electrode (Pamela Begum RN) FHR Baseline Rate : 160 (Pamela Begum RN) FHR Baseline Changes: No Baseline Change (Pamela Begum RN) Variability: Minimal - Undetectable to <=5 bpm (Pamela Begum RN) Accelerations: None (Pamela Begum RN) Decelerations: Late (Pamela Begum RN) Actions for Decelerations: Side to Side (Pamela Begum RN) IV/Blood Work: IV Infusing per Order (Pamela Begum RN) Patient Position/Activity: Left Lateral; Low Fowlers (Pamela Begum RN) Communication: RN at Bedside; RN Reviewed Strip (Pamela Begum RN) Datetime: 08/11/2016 18:20 Stage of : Labor (Pamela Begum RN) Provider Reviewed Strip: Yes (Pamela Begum RN) Communication: RN at Bedside; RN Reviewed Strip; Report Given to @ DR MOJICA (Pamela Begum RN) Notification Reason: Status Update; Status; Uterine Activity (Pamela Begum RN) Communication Comments: DR MOJICA REVIEWED STRIP (Pamela Begum RN) Datetime: 08/11/2016 18:15 NBP Sys/Maureen/Mean (mmHg): 176 (QS system process) : 101 (QS system process) : 133 (QS system process) Pulse: 64 (QS system process) Monitor Mode: Internal (Pamela Begum RN) Frequency (min): 2-3.5 (Pamela Begum RN) Quality: Mild/Moderate (Pamela Begum RN) Duration (sec): 60-80 (Pamela Begum RN) Resting Tone (Palpate): Relaxed (Pamela Begum RN) Resting Tone IUP (mmHg): 19 (Pamela Begum RN) Intensity IUP (mmHg): 60 (Pamela Begum RN) Monitor Mode: Internal Scalp Electrode (Pamela Begum RN) FHR Baseline Rate : 160 (Pamela Begum RN) FHR Baseline Changes: No Baseline Change (Pamela Begum RN) Variability: Minimal - Undetectable to <=5 bpm (Pamela Begum RN) Accelerations: None (Pamela Begum RN) Decelerations: None (Pamela Begum RN) Pain Scale: 3 (Pamela Begum RN) Pain Presence: Intermittent (Pamela Begum RN) Pain Type: Contraction (Pamela Begum RN) Pain Location: Abdomen (Pamela Begum RN) Pain Relief Measures: Comfort Measures (Pamela Begum RN) Pain Coping: Breathing Through Contractions (Pamela Begum RN) IV/Blood Work: IV Infusing per Order (Pamela Begum RN) Patient Position/Activity: Left Tilt; Low Fowlers (Pamela Begum RN) Comfort Measures: Family Support (Pamela Begum RN) LaborFlag: Labor (QS system process) Datetime: 08/11/2016 18:00 Stage of : Labor (Pamela Begum RN) Monitor Mode: Internal; Palpation (Pamela Begum RN) Frequency (min): 2-4 (Pamela Begum RN) Quality: Mild/Moderate (Pamela Begum RN) Duration (sec): 60-100 (Pamela Begum RN) Resting Tone (Palpate): Relaxed (Pamela Beugm RN) Monitor Mode: Internal Scalp Electrode (Pamela Begum RN) FHR Baseline Changes: No Baseline Change (Pamela Begum RN) Variability: Moderate 6-25 bpm (Pamela Begum RN) Accelerations: None (Pamela Begum RN) Pain Scale: 2 (Pamela Begum RN) Pain Presence: Intermittent (Pamela Begum RN) Pain Type: Contraction (Pamela Begum RN) Pain Location: Abdomen (Pamela Begum RN) Pain Relief Measures: Comfort Measures (Pamela Begum RN) Pain Coping: Talking Through Contractions; Breathing Through Contractions (Pamela Begum RN) IV/Blood Work: IV Bolus Started (Pamela Begum RN) Patient Position/Activity: Left Tilt; Low Fowlers (Pamela Begum, YUMI) Comfort Measures: Family Support (Pamela Begum, YUMI) I/O Interventions: Bedpan Given (Pamela Begum RN) Procedure Type: EPIDURAL (Pamela Begum RN) Procedure Verify: Correct Patient Identity; Agreement on Procedure to be Done; Relevant Images and Results are Properly Labeled and Displayed (Pamela Begum RN) Anesthesia Plans: Epidural (Pamela Begum RN) Communication: RN at Bedside; RN Reviewed Strip (Pamela Begum RN) LaborFlag: Labor (QS system process) Datetime: 08/11/2016 17:51 Stage of : Labor (Pamela Begum RN) Respirations: 20 (Pamela Begum RN) Monitor Mode: External (Pamela Begum RN) Monitor Interventions for UA: IUPC Inserted (Pamela Begum RN) Frequency (min): 2-3 (Pamela Begum RN) Quality: Mild/Moderate (Pamela Begum RN) Duration (sec): 60-80 (Pamela Begum RN) Resting Tone (Palpate): Relaxed (Pamela Begum RN) Monitor Mode: External US (Pamela Begum RN) Monitor Interventions for FHR: FSE Applied (Pamela Begum RN) FHR Baseline Rate : 160 (Pamela Begum RN) Variability: Moderate 6-25 bpm (Pamela Begum RN) Accelerations: None (Pamela Begum RN) Decelerations: Late (Pamela Begum RN) Pain Scale: 2 (Pamela Begum RN) Pain Presence: Intermittent (Pamela Begum RN) Pain Type: Contraction (Pamela Begum RN) Pain Location: Abdomen (Pamela Begum RN) Pain Relief Measures: Comfort Measures (Pamela Begum RN) Pain Coping: Talking Through Contractions; Breathing Through Contractions (Pamela Felecia Roulund, RN) Dilatation (cm): 3.0 (Pamela Begum, YUMI) Effacement (%): 70 (Pamela Begum, RN) Station: -2 (Pamela Begum, RN) Exam by: Ara MALDONADO CNM (Pamela Begum, RN) Membrane Status: Ruptured (Pamela Begum, YUMI) Membranes Rupture Method: Artificial (Pamela Begum, YUMI) Amniotic Fluid Color: Clear (Pamela Begum, YUMI) Amniotic Fluid Amount: Small (Pamela Begum, YUMI) Amniotic Fluid Odor: None (Pamela Begum, RN) Vaginal Bleeding: Small (Pamela Begum, YUMI) Cervix, Consistency: Soft (Pamela Begum, YUMI) Cervix, Position: Midposition (Pamela Begum, RN) IV/Blood Work: IV Infusing per Order (Pamela Begum, YUMI) Procedures: Sterile Vag Exam (Pamela Bgeum, YUMI) Patient Position/Activity: Low Fowlers (Pamela Begum, YUMI) Comfort Measures: Family Support (Pamela Begum, YUMI) Communication: RN at Bedside; RN Reviewed Strip (Pamela Begum, YUMI) LaborFlag: Labor (QS system process) Datetime: 08/11/2016 17:45 NBP Sys/Maureen/Mean (mmHg): 166 (QS system process) : 91 (QS system process) : 121 (QS system process) Pulse: 57 (QS system process) LaborFlag: Labor (QS system process) Datetime: 08/11/2016 17:44 Stage of : Labor (Pamela Begum RN) Provider Reviewed Strip: Yes (Pamela Begum RN) Instructional Method: Verbal; Patient Instructed; Family/Support Person Instructed; Verbalized Understanding (Pamela Begum RN) Plan of Care: Plan of Care Discussed; Vaginal Delivery; C/S Delivery (Pamela Begum, RN) Teaching Comments: IUPC _ FSE (Pamela Begum, RN) Communication: RN at Bedside; RN Reviewed Strip; Provider at Bedside (Pamela Begum RN) Communication Comments: A ERICA, CNM @ BS (Pamela Begum RN) Datetime: 08/11/2016 17:34 Stage of : Labor (Pamela Begum RN) Monitor Mode: External (Pamela Begum RN) Monitor Interventions for UA: [place] Adjusted (Pamela Begum RN) Frequency (min): 2-3 (Pamela Begum RN) Quality: Mild/Moderate (Pamela Begum RN) Duration (sec): 60-70 (Pamela Begum, RN) Resting Tone (Palpate): Relaxed (Pamela Begum, YUMI) Monitor Mode: External US (Pamela Begum RN) FHR Baseline Rate : 150 (Pamela Begum, YUMI) Variability: Moderate 6-25 bpm (Pamela Begum, RN) Accelerations: None (Pamela Begum RN) Decelerations: Late (Pamela Begum, RN) Pain Scale: 1 (Pamela Begum RN) Pain Presence: Intermittent (Pamela Begum, YUMI) Pain Type: Contraction (Pamela Begum, YUMI) Pain Location: Abdomen (Pamela Begum, RN) Pain Relief Measures: Comfort Measures (Pamela Begum RN) Pain Coping: Talking Through Contractions (Pamela Begum, YUMI) Pitocin (milliunit): Pitocin Discontinued (Pamela Begum, YUMI) IV/Blood Work: IV Infusing per Order (Pamela Begum, RN) Patient Position/Activity: Left Lateral; Low Fowlers (Pamela Begum, YUMI) Comfort Measures: Family Support (Pamela Begum, YUMI) Provider Reviewed Strip: Yes (Pamela Begum RN) Instructional Method: Verbal; Patient Instructed; Family/Support Person Instructed; Verbalized Understanding (Pamela Begum RN) Plan of Care: Plan of Care Discussed (Pamela Begum RN) Labor/Induction: Interventions (Pamela Begum, YUMI) Pain Management: Comfort Measures (Pamela Begum, YUMI) Communication: RN at Bedside; RN Reviewed Strip (Pamela Begum RN) LaborFlag: Labor (QS system process) Datetime: 08/11/2016 17:32 Stage of : Labor (Pamela Begum RN) Monitor Mode: External; Palpation (Pamela Begum RN) Monitor Interventions for UA: [place] Adjusted (Pamela Begum RN) Communication: RN at Bedside; RN Reviewed Strip (Pamela Begum RN) Datetime: 08/11/2016 17:24 Stage of : Labor (Pamela Begum RN) IV/Blood Work: IV Infusing per Order (Pamela Begum RN) Communication: RN at Bedside; RN Reviewed Strip (Pamela eBgum RN) Datetime: 08/11/2016 17:17 Stage of : Labor (Pamela Felecia Roulund, RN) Monitor Mode: External (Pamela Begum, RN) Monitor Interventions for UA: [place] Adjusted (Pamela Begum, RN) Frequency (min): 2-3 (Pamela Begum, YUMI) Quality: Mild/Moderate (Pamela Begum, RN) Duration (sec): 55-70 (Pamela Begum, RN) Resting Tone (Palpate): Relaxed (Pamela Begum, RN) Monitor Mode: External US (Pamela Begum, RN) Monitor Interventions for FHR: Ultrasound Adjusted (Pamela Begum RN) FHR Baseline Rate : 135 (Pamela Begum, RN) FHR Baseline Changes: No Baseline Change (Pamela Begum RN) Variability: Moderate 6-25 bpm (Pamela Begum, YUMI) Accelerations: None (Pamela Begum, YUMI) Decelerations: Late (Pamela Begum, YUMI) Pain Scale: 2 (Pamela Begum RN) Pain Presence: Intermittent (Pamela Begum, YUMI) Pain Type: Contraction (Pamela Begum, YUMI) Pain Location: Abdomen (Pamela Begum, RN) Pain Relief Measures: Comfort Measures (Pamela Begum, YUMI) Pain Coping: Talking Through Contractions (Pamela Begum, UYMI) Pitocin (milliunit): Pitocin Decreased to (milliunits) @ 9 (Pamela Begum, RN) Oxygen Method: Non-Rebreather (Pamela Begum, RN) Patient Position/Activity: Left Lateral; Low Fowlers (Pamela Begum, RN) Comfort Measures: Hot/Cold Pack; Family Support (Pamela Begum, RN) Provider Reviewed Strip: Yes (Pamela Begum, YUMI) Communication: RN at Bedside; RN Reviewed Strip; Provider Orders Received (Pamela Begum, YUMI) LaborFlag: Labor (QS system process) Datetime: 08/11/2016 17:14 NBP Sys/Maureen/Mean (mmHg): 158 (QS system process) : 78 (QS system process) : 109 (QS system process) Pulse: 64 (QS system process) LaborFlag: Labor (QS system process) Datetime: 08/11/2016 17:05 Stage of : Labor (Pamela Begum RN) Actions for Decelerations: Side to Side; IV Bolus; Sterile Vaginal Exam; Provider Reviewed Strip (Pamela Begum RN) Dilatation (cm): 3.0 (Pamela Begum RN) Effacement (%): 75 (Pamela Begum, RN) Station: -2 (Pamela Begum RN) Exam by: DR MOJICA (Pamela Begum, RN) Cervix, Consistency: Soft (Pamela Begum RN) Cervix, Position: Midposition (Pamela Begum, RN) Oxygen Method: Room Air (Pamela Begum RN) Procedures: Sterile Vag Exam (Pamela Begum, YUMI) Provider Reviewed Strip: Yes (Pamela Begum RN) Communication: RN at Bedside; RN Reviewed Strip; Provider at Bedside (Pamela Begum RN) Datetime: 08/11/2016 17:00 Stage of : Labor (Pamela Begum RN) Monitor Mode: External (Pamela Begum RN) Frequency (min): 1.5-2.5 (Pamela Begum RN) Quality: Mild/Moderate (Pamela Begum RN) Duration (sec): 55-70 (Pamela Begum RN) Resting Tone (Palpate): Relaxed (Pamela Begum RN) Monitor Mode: External US (Pamela Begum RN) FHR Baseline Changes: Unable to Determine (Pamela Begum RN) Variability: Minimal - Undetectable to <=5 bpm (Pamela Begum, YUMI) Accelerations: None (Pamela Begum RN) Decelerations: Late (Pamela Begum RN) Pain Relief Measures: Comfort Measures (Pamela Begum RN) Pain Coping: Talking Through Contractions; Breathing Through Contractions (Pamela Begum, YUMI) Pitocin (milliunit): Pitocin Remains (milliunits) @ 18 (Pamela Begum, RN) IV/Blood Work: IV Infusing per Order (Pamela Begum, YUMI) Comfort Measures: Family Support (Pamela Begum, YUMI) Communication: RN at Bedside; RN Reviewed Strip (Pamela Begum RN) LaborFlag: Labor (QS system process) Datetime: 08/11/2016 16:45 Stage of : Labor (Pamela Begum RN) Monitor Mode: External (Pamela Begum RN) Frequency (min): 1.5-3 (Pamela Begum RN) Quality: Mild/Moderate (Pamela Begum RN) Resting Tone (Palpate): Relaxed (Pamela Begum RN) Monitor Mode: External US (Pamela Begum RN) Monitor Interventions for FHR: Ultrasound Adjusted (Pamela Begum RN) FHR Baseline Changes: Unable to Determine (Pamela Begum RN) Pitocin (milliunit): Pitocin Remains (milliunits) @ 18 (Pamela Begum RN) IV/Blood Work: IV Infusing per Order (Pamela Begum RN) Communication: RN at Bedside; RN Reviewed Strip (Pamela Begum RN) Datetime: 08/11/2016 16:30 Stage of : Labor (Pamela Begum RN) Monitor Mode: External (Pamela Begum RN) Frequency (min): 1.5-3 (Pamela Begum RN) Quality: Mild/Moderate (Pamela Begum RN) Resting Tone (Palpate): Relaxed (Pamela Begum RN) Monitor Mode: External US (Pamela Begum RN) FHR Baseline Rate : 155 (Pamela Begum RN) FHR Baseline Changes: No Baseline Change (Pamela Begum RN) Variability: Moderate 6-25 bpm (Pamela Begum RN) Accelerations: None (Pamela Begum RN) Decelerations: None (Pamela Begum RN) Pitocin (milliunit): Pitocin Remains (milliunits) @ 18 (Pamela Begum RN) IV/Blood Work: IV Infusing per Order (Pamela Begum RN) Communication: RN at Bedside; RN Reviewed Strip (Pamela Begum RN) Datetime: 08/11/2016 16:23 NBP Sys/Maureen/Mean (mmHg): 142 (QS system process) : 94 (QS system process) : 114 (QS system process) Pulse: 61 (QS system process) LaborFlag: Labor (QS system process) Datetime: 08/11/2016 16:15 Stage of : Labor (Pamela Begum RN) Monitor Mode: External (Pamela Begum RN) Monitor Interventions for UA: [place] Adjusted (Pamela Begum, RN) Frequency (min): 1.5-3 (Pamela Begum, RN) Quality: Mild/Moderate (Pamela Begum, RN) Resting Tone (Palpate): Relaxed (Pamela Begum, RN) Monitor Mode: External US (Pamela Begum RN) Monitor Interventions for FHR: Ultrasound Adjusted (Pamela Begum RN) FHR Baseline Changes: Unable to Determine (Pamela Begum, YUMI) Pain Relief Measures: Comfort Measures (Pamela Begum, YUMI) Pain Coping: Talking Through Contractions; Breathing Through Contractions (Pamela Begum, YUMI) Pitocin (milliunit): Pitocin Remains (milliunits) @ 18 (Pamela Begum, YUMI) IV/Blood Work: IV Infusing per Order (Pamela Begum, RN) Comfort Measures: Breathing/Relaxation; Family Support (Pamela Begum, RN) I/O Interventions: Up to BR (Pamela Begum, YUMI) Communication: RN at Bedside; RN Reviewed Strip (Pamela Begum RN) LaborFlag: Labor (QS system process) Datetime: 08/11/2016 16:00 Monitor Mode: External (Pamela Begum RN) Frequency (min): 1.5-3 (Pamela Begum RN) Quality: Mild/Moderate (Pamela Begum RN) Resting Tone (Palpate): Relaxed (Pamela Begum RN) Monitor Mode: External US (Pamela Begum RN) Monitor Interventions for FHR: Ultrasound Adjusted (Pamela Begum RN) FHR Baseline Rate : 165 (Pamela Begum RN) FHR Baseline Changes: No Baseline Change (Pamela Begum RN) Variability: Minimal - Undetectable to <=5 bpm (Pamela Begum RN) Accelerations: None (Pamela Begum RN) Decelerations: None (Pamela Begum RN) Pain Scale: 2 (Pamela Begum RN) Pain Presence: Intermittent (Pamela Begum RN) Pain Type: Contraction (Pamela Begum RN) Pain Location: Abdomen (Pamela Begum RN) Pain Relief Measures: Comfort Measures (Pamela Begum RN) Pain Coping: Talking Through Contractions; Breathing Through Contractions (Pamela Begum RN) IV/Blood Work: IV Infusing per Order (Pamela Begum RN) Comfort Measures: Breathing/Relaxation; Family Support (Pamela Begum RN) LaborFlag: Labor (QS system process) Datetime: 08/11/2016 15:49 NBP Sys/Maureen/Mean (mmHg): 132 (QS system process) : 79 (QS system process) : 101 (QS system process) Pulse: 61 (QS system process) LaborFlag: Labor (QS system process) Datetime: 08/11/2016 15:45 Stage of : Labor (Pamela Begum RN) Monitor Mode: External (Pamela Begum RN) Frequency (min): 1.5-3 (Pamela Begum RN) Quality: Mild/Moderate (Pamela Begum RN) Duration (sec): 55-60 (Pamela Begum RN) Resting Tone (Palpate): Relaxed (Pamela Begum RN) Monitor Mode: External US (Pamela Begum RN) FHR Baseline Rate : 155 (Pamela Begum RN) FHR Baseline Changes: No Baseline Change (Pamela Begum RN) Variability: Moderate 6-25 bpm (Pamela Begum RN) Accelerations: None (Pamela Begum RN) Decelerations: None (Pamela Begum RN) Pitocin (milliunit): Pitocin Remains (milliunits) @ 18 (Pamela Begum RN) IV/Blood Work: IV Infusing per Order (Pamela Begum RN) Communication: RN at Bedside; RN Reviewed Strip (Pamela Begum RN) Datetime: 08/11/2016 15:30 Stage of : Labor (Pamela Begum RN) Monitor Mode: External (Pamela Begum RN) Frequency (min): 1.5-3 (Pamela Begum RN) Quality: Mild/Moderate (Pamela Begum RN) Resting Tone (Palpate): Relaxed (Pamela Begum RN) Monitor Mode: External US (Pamela Begum RN) FHR Baseline Rate : 155 (Pamela Begum RN) FHR Baseline Changes: No Baseline Change (Pamela Begum RN) Variability: Moderate 6-25 bpm (Pamela Begum RN) Accelerations: None (Pamela Begum RN) Decelerations: Late (Pamela Begum RN) Pain Scale: 2 (Pamela Begum RN) Pain Presence: Intermittent (Pamela Begum RN) Pain Type: Contraction (Pamela Begum RN) Pain Location: Abdomen (Pamela Begum RN) Pain Relief Measures: Comfort Measures (Pamela Begum RN) Pain Coping: Talking Through Contractions; Breathing Through Contractions (Pamela Begum RN) Pitocin (milliunit): Pitocin Remains (milliunits) @ 18 (Pamela Begum RN) IV/Blood Work: IV Infusing per Order (Pamela Begum RN) Comfort Measures: Breathing/Relaxation; Family Support (Pamela Begum RN) Communication: RN Reviewed Strip (Pamela Begum RN) LaborFlag: Labor (QS system process) Datetime: 08/11/2016 15:20 NBP Sys/Maureen/Mean (mmHg): 172 (QS system process) : 103 (QS system process) : 133 (QS system process) Pulse: 59 (QS system process) LaborFlag: Labor (QS system process) Datetime: 08/11/2016 15:15 Stage of : Labor (Pamela Begum RN) Monitor Mode: External (Pamela Begum RN) Frequency (min): 1.5-3.5 (Pamela Begum RN) Quality: Mild/Moderate (Pamela Begum RN) Resting Tone (Palpate): Relaxed (Pamela Begum RN) Monitor Mode: External US (Pamela Begum RN) FHR Baseline Rate : 155 (Pamela Begum RN) FHR Baseline Changes: No Baseline Change (Pamela Begum RN) Variability: Moderate 6-25 bpm (Pamela Begum RN) Accelerations: None (Pamela Begum RN) Decelerations: Late (Pamela Begum RN) Pain Relief Measures: Comfort Measures (Pamela Begum RN) Pain Coping: Breathing Through Contractions (Pamela Begum RN) Pitocin (milliunit): Pitocin Remains (milliunits) @ 18 (Pamela Begum, YUMI) IV/Blood Work: IV Infusing per Order (Pamela Begum RN) Comfort Measures: Breathing/Relaxation; Family Support (Pamela Begum RN) Communication: RN at Bedside; RN Reviewed Strip (Pamela Begum RN) LaborFlag: Labor (QS system process) Datetime: 08/11/2016 15:14 IV/Blood Work: New IV Bag Hung (Argenis Murillo RN) Datetime: 08/11/2016 15:00 Stage of : Labor (Pamela Begum RN) Respirations: 18 (Pamela Begum RN) Monitor Mode: External (Pamela Begum RN) Frequency (min): 1.5-2.5 (Pamela Begum, YUMI) Quality: Mild/Moderate (Pamela Begum RN) Duration (sec): 50-60 (Pamela Begum, YUMI) Resting Tone (Palpate): Relaxed (Pamela Begum, YUMI) Monitor Mode: External US (Pamela Begum RN) FHR Baseline Rate : 155 (Pamela Begum RN) FHR Baseline Changes: No Baseline Change (Pamela Begum RN) Variability: Moderate 6-25 bpm (Pamela Begum, YUMI) Accelerations: None (Pamela Begum RN) Decelerations: None (Pamela Begum, YUMI) Pain Relief Measures: Comfort Measures (Pamela Begum RN) Pain Coping: Breathing Through Contractions (Pamela Begum, YUMI) Pitocin (milliunit): Pitocin Remains (milliunits) @ 18 (Pamela Begum, YUMI) IV/Blood Work: IV Infusing per Order (Pamela Begum, YUMI) Comfort Measures: Family Support (Pamela Begum, YUMI) Communication: RN Reviewed Strip (Pamela Begum RN) LaborFlag: Labor (QS system process) Datetime: 08/11/2016 14:49 NBP Sys/Maureen/Mean (mmHg): 159 (QS system process) : 106 (QS system process) : 127 (QS system process) Pulse: 66 (QS system process) LaborFlag: Labor (QS system process) Datetime: 08/11/2016 14:45 Stage of : Labor (Pamela Begum RN) Respirations: 20 (Pamela Begum RN) Monitor Mode: External (Pamela Begum RN) Monitor Interventions for UA: [place] Adjusted (Pamela Begum, YUMI) Frequency (min): 2-3.5 (Pamela Begum RN) Quality: Mild/Moderate (Pamela Begum RN) Duration (sec): 50-60 (Pamela Begum, RN) Resting Tone (Palpate): Relaxed (Pamela Begum, YUMI) Monitor Mode: External US (Pamela Begum RN) Monitor Interventions for FHR: Ultrasound Adjusted (Pamela Begum RN) FHR Baseline Rate : 155 (Pamela Begum RN) FHR Baseline Changes: No Baseline Change (Pamela Begum, YUMI) Variability: Moderate 6-25 bpm (Pamela Begum, YUMI) Accelerations: None (Pamela Begum, RN) Decelerations: Late (Pamela Begum, RN) Actions for Decelerations: Side to Side; IV Bolus (Pamela Begum, YUMI) Pain Relief Measures: Comfort Measures (Pamela Begum, YUMI) Pain Coping: Breathing Through Contractions (Pamela Begum RN) Pitocin (milliunit): Pitocin Increased to (milliunits) @ 18 (Pamela Begum, YUMI) IV/Blood Work: IV Infusing per Order (Pamela Begum RN) Patient Position/Activity: Right Lateral; Low Fowlers (Pamela Begum, RN) Comfort Measures: Hot/Cold Pack; Family Support (Pamela Begum, YUMI) Communication: RN at Bedside; RN Reviewed Strip (Pamela Begum RN) LaborFlag: Labor (QS system process) Datetime: 08/11/2016 14:30 Stage of : Labor (Pamela Begum RN) Respirations: 20 (Pamela Begum RN) Monitor Mode: External (Pamela Begum, YUMI) Monitor Interventions for UA: [place] Adjusted (Pamela Begum RN) Frequency (min): 2-3 (Pamela Begum RN) Quality: Mild/Moderate (Pamela Begum RN) Duration (sec): 50-60 (Pamela Begum, YUMI) Resting Tone (Palpate): Relaxed (Pamela Begum, YUMI) Monitor Mode: External US (Pamela Begum RN) Monitor Interventions for FHR: Ultrasound Adjusted (Pamela Begum RN) FHR Baseline Rate : 155 (Pamela Begum RN) FHR Baseline Changes: No Baseline Change (Pamela Begum RN) Variability: Moderate 6-25 bpm (Pamela Begum, YUMI) Accelerations: None (Pamela Begum RN) Decelerations: None (Pamela Begum RN) Pain Scale: 3 (Pamela Begum RN) Pain Presence: Intermittent (Pamela Begum RN) Pain Type: Contraction (Pamela Begum, RN) Pain Location: Abdomen (Pamela Beugm, RN) Pain Relief Measures: Comfort Measures (Pamela Begum, RN) Pain Coping: Breathing Through Contractions (Pamela Begum RN) Pitocin (milliunit): Pitocin Increased to (milliunits) @ 16 (Pamela Begum, RN) IV/Blood Work: IV Infusing per Order (Pamela Begum, RN) Patient Position/Activity: Right Tilt; Low Fowlers (Pamela Begum, RN) Comfort Measures: Breathing/Relaxation; Coaching; Family Support (Pamela Begum, YUMI) Communication: RN at Bedside; RN Reviewed Strip (Pamela Begum RN) LaborFlag: Labor (QS system process) Datetime: 08/11/2016 14:19 NBP Sys/Maureen/Mean (mmHg): 155 (QS system process) : 103 (QS system process) : 125 (QS system process) Pulse: 70 (QS system process) LaborFlag: Labor (QS system process) Datetime: 08/11/2016 14:15 Stage of : Labor (Pamela Begum, YUMI) Respirations: 18 (Pamela Begum, YUMI) Monitor Mode: External (Pamela Begum, RN) Monitor Interventions for UA: [place] Adjusted (Pamela Begum, RN) Frequency (min): 2-3.5 (Pamela Begum, RN) Quality: Mild/Moderate (Pamela Begum, RN) Duration (sec): 50-60 (Pamela Begum, RN) Resting Tone (Palpate): Relaxed (Pamela Begum, YUMI) Monitor Mode: External US (Pamela Begum, YUMI) FHR Baseline Rate : 155 (Pamlea Begum, YUMI) FHR Baseline Changes: No Baseline Change (Pamela Begum, YUMI) Variability: Minimal - Undetectable to <=5 bpm (Pamela Begum, RN) Accelerations: None (Pamela Begum, RN) Decelerations: None (Pamela Begum, RN) Pain Relief Measures: Comfort Measures (Pamela Begum, YUMI) Pain Coping: Breathing Through Contractions (Pamela Begum, RN) Pitocin (milliunit): Pitocin Increased to (milliunits) @ 14 (Pamela Begum, RN) IV/Blood Work: IV Infusing per Order (Pamela Begum, RN) Patient Position/Activity: Right Tilt; Low Fowlers (Pamela Begum, RN) Comfort Measures: Breathing/Relaxation; Coaching; Family Support (Pamela Begum, RN) I/O Interventions: Up to BR (Pamela Begum, YUMI) Communication: RN at Bedside; RN Reviewed Strip (Pamela Begum, YUMI) LaborFlag: Labor (QS system process) Datetime: 08/11/2016 14:00 Stage of : Labor (Pamela Begum RN) Respirations: 18 (Pamela Begum RN) Monitor Mode: External (Pamela Begum RN) Frequency (min): 2-3 (Pamela Begum RN) Quality: Mild/Moderate (Pamela Begum RN) Duration (sec): 55-60 (Pamela Begum RN) Resting Tone (Palpate): Relaxed (Pamela Begum RN) Monitor Mode: External US (Pamela Begum RN) Monitor Interventions for FHR: Ultrasound Adjusted (Pamela Begum RN) FHR Baseline Rate : 150 (Pamela Begum RN) FHR Baseline Changes: No Baseline Change (Pamela Begum RN) Variability: Moderate 6-25 bpm (Pamela Begum RN) Accelerations: None (Pamela Begum RN) Decelerations: Variable (Pamela Begum RN) Pain Scale: 2 (Pamela Begum RN) Pain Presence: Intermittent (Pamela Begum RN) Pain Type: Contraction (Pamela Begum RN) Pain Location: Abdomen (Pamela Begum RN) Pain Relief Measures: Comfort Measures (Pamela Begum RN) Pain Coping: Breathing Through Contractions (Pamela Begum RN) Pitocin (milliunit): Pitocin Increased to (milliunits) @ 12 (Pamela Begum RN) IV/Blood Work: IV Infusing per Order (Pamela Begum RN) Patient Position/Activity: Left Tilt; Low Fowlers (Pamela Begum RN) Comfort Measures: Breathing/Relaxation; Coaching; Family Support (Pamela Begum RN) Communication: RN at Bedside; RN Reviewed Strip (Pamela Begum RN) LaborFlag: Labor (QS system process) Datetime: 08/11/2016 13:45 Stage of : Antepartum (Pamela Begum RN) Respirations: 18 (Pamela Begum RN) Monitor Mode: External (Pamela Begum RN) Frequency (min): 1-4.5 (Pamela Begum RN) Quality: Mild/Moderate (Pamela Begum RN) Resting Tone (Palpate): Relaxed (Pamela Begum RN) Monitor Mode: External US (Pamela Begum RN) FHR Baseline Rate : 150 (Pamela Begum RN) FHR Baseline Changes: No Baseline Change (Pamela Begum RN) Variability: Minimal - Undetectable to <=5 bpm (Pamela Begum RN) Accelerations: None (Pamela Begum RN) Decelerations: None (Pamela Begum RN) Pain Relief Measures: Comfort Measures (Pamela Begum RN) Pain Coping: Breathing Through Contractions (Pamela Begum RN) Pitocin (milliunit): Pitocin Increased to (milliunits) @ 10 (Pamela Begum, YUMI) IV/Blood Work: IV Infusing per Order (Pamela Felecia Roulund, RN) Patient Position/Activity: Left Tilt; Low Fowlers (Pamela Begum, RN) Comfort Measures: Breathing/Relaxation; Family Support (Pamela Begum, RN) Communication: RN at Bedside; RN Reviewed Strip (Pamela Begum RN) LaborFlag: Antepartum (QS system process) Datetime: 08/11/2016 13:30 Stage of : Antepartum (Pamela Begum RN) Respirations: 18 (Pamela Begum RN) Monitor Mode: External (Pamela Begum RN) Monitor Interventions for UA: [place] Adjusted (Pamela Begum RN) Frequency (min): 2.5-3 (Pamela Begum RN) Quality: Mild (Pamela Begum, YUMI) Duration (sec): 60-80 (Pamela Begum, RN) Resting Tone (Palpate): Relaxed (Pamela Begum, YUMI) Monitor Mode: External US (Pamela Begum RN) Monitor Interventions for FHR: Ultrasound Adjusted (Pamela Begum RN) FHR Baseline Rate : 150 (Pamela Beugm, YUMI) FHR Baseline Changes: No Baseline Change (Pamela Begum RN) Variability: Moderate 6-25 bpm (Pamela Begum RN) Accelerations: 15X15 (Pamela Begum, RN) Decelerations: None (Pamela Begum RN) Pain Scale: 1 (Pamela Begum RN) Pain Presence: Intermittent (Pamela Begum RN) Pain Type: Cramping (Pamela Begum, RN) Pain Location: Abdomen (Pamela Begum, RN) Pain Relief Measures: Comfort Measures (Pamela Begum, RN) Pain Coping: Talking Through Contractions (Pamela Begum, RN) Pitocin (milliunit): Pitocin Increased to (milliunits) @ 8 (Pamela Begum, RN) IV/Blood Work: IV Infusing per Order (Pamela Begum, RN) Patient Position/Activity: Left Lateral; Low Fowlers (Pamela Begum, RN) Comfort Measures: Family Support (Pamela Begum, RN) Communication: RN at Bedside; RN Reviewed Strip (Pamela Begum, YUMI) LaborFlag: Antepartum (QS system process) Datetime: 08/11/2016 13:15 Stage of : Antepartum (Pamela Begum RN) Respirations: 18 (Pamela Begum RN) Monitor Mode: External (Pamela Begum, RN) Monitor Interventions for UA: [place] Adjusted (Pamela Begum, RN) Frequency (min): 2-4 (Pamela Begum, YUMI) Quality: Mild (Pamela Begum, YUMI) Duration (sec): 60-80 (Pamela Begum, RN) Resting Tone (Palpate): Relaxed (Pamela Begum, RN) Monitor Mode: External US (Pamela Begum, YUMI) Monitor Interventions for FHR: Ultrasound Adjusted (Pamela Begum RN) FHR Baseline Rate : 155 (Pamela Begum RN) FHR Baseline Changes: No Baseline Change (Pamlea Begum RN) Variability: Moderate 6-25 bpm (Pamela Begum RN) Accelerations: None (Pamela Begum RN) Decelerations: None (Pamela Begum, YUMI) Pain Relief Measures: Comfort Measures (Pamela Begum RN) Pain Coping: Talking Through Contractions (Pamela Begum RN) Pitocin (milliunit): Pitocin Remains (milliunits) @ 6 (Pamela Begum, RN) IV/Blood Work: IV Infusing per Order (Pamela Begum RN) Patient Position/Activity: Left Lateral; Low Fowlers (Pamela Begum, YUMI) Comfort Measures: Family Support (Pamela Begum, YUMI) Communication: RN at Bedside; RN Reviewed Strip (Pamela Begum RN) LaborFlag: Antepartum (QS system process) Datetime: 08/11/2016 13:00 Stage of : Antepartum (Pamela Begum RN) Respirations: 18 (Pamela Begum RN) Temperature (F): 98.2 (Pamela Begum RN) Temperature (C): 36.8 (QS system process) Monitor Mode: External (Pamela Begum RN) Monitor Interventions for UA: [place] Adjusted (Pamela Begum RN) Frequency (min): [id number] (Pamela Begum YUMI) Quality: Mild (Pamela Begum, RN) Resting Tone (Palpate): Relaxed (Pamela Begum, RN) Monitor Mode: External US (Pamela Begum RN) FHR Baseline Rate : 150 (Pamela Begum RN) FHR Baseline Changes: No Baseline Change (Pamela Begum, RN) Variability: Minimal - Undetectable to <=5 bpm (Pamela Begum, RN) Accelerations: None (Pamela Begum, RN) Decelerations: None (Pamela Begum, RN) Pain Relief Measures: Comfort Measures (Pamela Begum, RN) Pain Coping: Talking Through Contractions (Pamela Begum, RN) Pitocin (milliunit): Pitocin Increased to (milliunits) @ 6 (Pamela Begum, RN) IV/Blood Work: IV Infusing per Order (Pamela Begum, RN) Patient Position/Activity: Right Tilt; Low Fowlers (Pamela Begum, RN) Comfort Measures: Family Support (Pamela Begum, RN) I/O Interventions: Popsicle (Pamela Begum, RN) Communication: RN at Bedside; RN Reviewed Strip (Pamela Begum, RN) LaborFlag: Antepartum (QS system process) Datetime: 08/11/2016 12:45 Stage of : Antepartum (Pamela Begum, YUMI) Respirations: 18 (Pamela Begum, YUMI) Monitor Mode: External (Pamela Felecia Roulund, RN) Monitor Interventions for UA: [place] Adjusted (Pamela Begum, RN) Frequency (min): IRREG (Pamela Begum, RN) Quality: Mild (Pamela Begum, RN) Duration (sec): 50-60 (Pamela Begum, RN) Resting Tone (Palpate): Relaxed (Pamela Begum, RN) Monitor Mode: External US (Pamela Begum, RN) FHR Baseline Rate : 150 (Pamela Begum, RN) FHR Baseline Changes: No Baseline Change (Pamela Begum, RN) Variability: Minimal - Undetectable to <=5 bpm (Pamela Begum, RN) Accelerations: 10X10 (Pamela Begum, RN) Decelerations: None (Pamela Begum, RN) Pain Relief Measures: Comfort Measures (Pamela Begum, YUMI) Pain Coping: Talking Through Contractions (Pamela Begum, YUMI) Pitocin (milliunit): Pitocin Increased to (milliunits) @ 4 (Pamela Begum, RN) IV/Blood Work: IV Infusing per Order (Pamela Begum, RN) Patient Position/Activity: Right Tilt; Low Fowlers (Pamela Begum, RN) Comfort Measures: Family Support (Pamela Begum, RN) Communication: RN at Bedside; RN Reviewed Strip (Pamela Begum, RN) LaborFlag: Antepartum (QS system process) Datetime: 08/11/2016 12:30 Stage of : Antepartum (Pamela Begum RN) Respirations: 18 (Pamela Begum, RN) Monitor Mode: External (Pamela Begum RN) Frequency (min): NONE (Pamela Begum RN) Resting Tone (Palpate): Relaxed (Pamela Begum RN) Monitor Mode: External US (Pamela Begum RN) FHR Baseline Rate : 150 (Pamela Begum RN) FHR Baseline Changes: No Baseline Change (Pamela Begum RN) Variability: Moderate 6-25 bpm (Pamela Begum, YUMI) Accelerations: None (Pamela Begum, YUMI) Decelerations: None (Pamela Begum, YUMI) Pain Relief Measures: Comfort Measures (Pamela Begum RN) Pitocin (milliunit): Pitocin Remains (milliunits) @ 2 (Pamela Begum, YUMI) IV/Blood Work: IV Infusing per Order (Pamela Begum, YUMI) Patient Position/Activity: Right Tilt; Low Fowlers (Pamela Begum, RN) Comfort Measures: Family Support (Pamela Begum, YUMI) Communication: RN at Bedside; RN Reviewed Strip (Pamela Begum, YUMI) LaborFlag: Antepartum (QS system process) Datetime: 08/11/2016 12:20 Stage of : Antepartum (Pamela Begum RN) NBP Sys/Maureen/Mean (mmHg): 140 (QS system process) : 86 (QS system process) : 108 (QS system process) Pulse: 80 (QS system process) Pitocin (milliunit): Pitocin Started (milliunits) @ 2 (Pamela Begum RN) Instructional Method: Verbal; Patient Instructed; Family/Support Person Instructed; Verbalized Understanding (Pamela Begum RN) Pain Management: Pain Scale/Goals; Comfort Measures (Pamela Begum RN) Medications: Pitocin (Pamela Begum RN) Communication: RN at Bedside; RN Reviewed Strip (Pamela Begum RN) LaborFlag: Antepartum (QS system process) Datetime: 08/11/2016 12:15 Stage of : Antepartum (Pamela Begum RN) Respirations: 18 (Pamela Begum RN) Monitor Mode: External (Pamela Begum RN) Frequency (min): IRREG (Pamela Begum RN) Quality: Mild (Pamela Begum RN) Duration (sec): 50-60 (Pamela Begum, YUMI) Resting Tone (Palpate): Relaxed (Pamela Begum, YUMI) Monitor Mode: External US (Pamela Begum RN) FHR Baseline Rate : 150 (Pamela Begum RN) FHR Baseline Changes: No Baseline Change (Pamela Begum RN) Variability: Moderate 6-25 bpm (Pamela Begum RN) Accelerations: None (Pamela Begum RN) Decelerations: None (Pamela Begum RN) Pain Scale: 0 (Pamela Begum RN) Pain Presence: None/Denies (Pamela Begum RN) Pain Type: N/A (Pamela Begum RN) Pain Relief Measures: Comfort Measures (Pamela Begum RN) Pain Coping: Talking Through Contractions (Pamela Begum RN) Patient Position/Activity: Semi-Fowlers (Pamela Begum RN) Comfort Measures: Family Support (Pamela Begum RN) Communication: RN at Bedside; RN Reviewed Strip (Pamela Begum RN) LaborFlag: Antepartum (QS system process) Datetime: 08/11/2016 12:00 Dilatation (cm): 2.0 (Argenis Murillo RN) Effacement (%): 50 (Argenis Murillo, RN) Station: -2 (Argenis Murillo RN) Exam by: Yadi Maldonado CNM (Argenis uMrillo, RN) Communication Comments: ORders to start Pitocin and antibiotics per Yadi Maldonado CNM (Argenis Murillo, RN) Datetime: 08/11/2016 11:59 Communication Comments: A. Erica CNM at bedside (Argenis Murillo RN) Datetime: 08/11/2016 11:58 NBP Sys/Maureen/Mean (mmHg): 160 (QS system process) : 96 (QS system process) : 123 (QS system process) Pulse: 85 (QS system process) LaborFlag: Antepartum (QS system process) Datetime: 08/11/2016 11:57 Stage of : Antepartum (Pamela Begum RN) Respirations: 18 (Pamela Begum RN) Monitor Mode: External (Pamela Begum RN) Resting Tone (Palpate): Relaxed (Pamela Begum RN) Monitor Mode: External US (Pamela Begum RN) FHR Baseline Rate : 155 (Pamela Begum RN) Pain Presence: None/Denies (Pamela Begum RN) Pain Type: N/A (Pamela Begum RN) Pain Relief Measures: Comfort Measures (Pamela Begum RN) Patient Position/Activity: Semi-Fowlers (Pamela Begum, RN) Comfort Measures: Family Support (Pamela Begum, RN) I/O Interventions: Up to BR (Pamela Begum, RN) Communication: RN at Bedside; RN Reviewed Strip; Provider at Bedside; Provider Orders Received (Pamela Begum RN) LaborFlag: Antepartum (QS system process) Datetime: 08/11/2016 10:32 NBP Sys/Maureen/Mean (mmHg): 147 (QS system process) : 96 (QS system process) : 115 (QS system process) Pulse: 77 (QS system process) LaborFlag: Antepartum (QS system process) Datetime: 08/11/2016 10:30 Stage of : Antepartum (Pamela Begum RN) Respirations: 18 (Pamela Begum RN) Monitor Mode: External (Pamela Begum RN) Frequency (min): OCC (Pamela Begum, RN) Quality: Mild (Pamela Begum, RN) Duration (sec): 55-70 (Pamela Begum, RN) Resting Tone (Palpate): Relaxed (Pamela Begum, YUMI) Monitor Mode: External US (Pamela Begum RN) FHR Baseline Rate : 155 (Pamela Begum, YUMI) FHR Baseline Changes: No Baseline Change (Pamela Begum RN) Variability: Moderate 6-25 bpm (Pamela Begum, RN) Accelerations: 15X15 (Pamela Begum, RN) Decelerations: None (Pamela Begum, RN) Pain Relief Measures: Comfort Measures (Pamela Begum RN) Pain Coping: Talking Through Contractions (Pamela Begum, YUMI) IV/Blood Work: IV Infusing per Order (Pamela Begum, YUMI) Patient Position/Activity: Right Tilt; Low Fowlers (Pamela Begum, YUMI) Comfort Measures: Family Support (Pamela Begum, YUMI) Communication: RN at Bedside; RN Reviewed Strip (Pamela Begum, YUMI) LaborFlag: Antepartum (QS system process) Datetime: 08/11/2016 10:07 Stage of : Antepartum (Pamela Begum, YUMI) NBP Sys/Maureen/Mean (mmHg): 144 (QS system process) : 100 (QS system process) : 117 (QS system process) Pulse: 89 (QS system process) Medication Comments: ALDOMET 500 MG PO @ 1007 (Pamela Begum RN) Instructional Method: Verbal; Patient Instructed; Family/Support Person Instructed; Verbalized Understanding (Pamela Begum RN) Unit Routine: Medications (Pamela Begum RN) Teaching Comments: RESTART ALDOMET (Pamela Begum, YUMI) Communication: RN at Bedside (Pamela Begum RN) LaborFlag: Antepartum (QS system process) Datetime: 08/11/2016 10:02 Stage of : Antepartum (Pamela Begum RN) NBP Sys/Maureen/Mean (mmHg): 152 (QS system process) : 101 (QS system process) : 121 (QS system process) Pulse: 92 (QS system process) Respirations: 18 (Pamela Begum RN) Monitor Mode: External (Pamela Begum RN) Frequency (min): OCC (Pamela Begum RN) Quality: Mild (Pamela Begum RN) Duration (sec): 50-60 (Pamela Begum RN) Resting Tone (Palpate): Relaxed (Pamela Begum RN) Monitor Mode: External US (Pamela Begum RN) FHR Baseline Rate : 155 (Pamela Begum RN) FHR Baseline Changes: No Baseline Change (Pamela Begum RN) Variability: Moderate 6-25 bpm (Pamela Begum RN) Accelerations: 15X15 (Pamela Begum RN) Decelerations: None (Pamela Begum RN) Pain Scale: 1 (Pamela Begum RN) Pain Presence: Intermittent (Pamela Begum RN) Pain Type: Pressure (Pamela Begum RN) Pain Location: Perineum (Pamela Begum RN) Pain Relief Measures: Comfort Measures (Pamela Begum RN) Pain Coping: Talking Through Contractions (Pamela Begum RN) IV/Blood Work: IV Infusing per Order (Pamela Begum RN) Patient Position/Activity: Right Tilt; Low Fowlers (Pamela Begum RN) Comfort Measures: Family Support (Pamela Begum RN) Communication: RN at Bedside; RN Reviewed Strip (Pamela Begum RN) LaborFlag: Antepartum (QS system process) Datetime: 08/11/2016 09:38 Stage of : Antepartum (Pamela Begum RN) Monitor Interventions for FHR: Ultrasound Adjusted (Pamela eBgum RN) Communication: RN at Bedside; RN Reviewed Strip (Pamela Begum RN) Datetime: 08/11/2016 09:32 NBP Sys/Maureen/Mean (mmHg): 129 (QS system process) : 97 (QS system process) : 108 (QS system process) Pulse: 97 (QS system process) LaborFlag: Antepartum (QS system process) Datetime: 08/11/2016 09:30 Stage of : Antepartum (Pamela Begum RN) NBP Sys/Maureen/Mean (mmHg): 180 (QS system process) : 117 (QS system process) : 144 (QS system process) Pulse: 83 (QS system process) Respirations: 18 (Pamela Begum, YUMI) Monitor Mode: External; Palpation (Pamela Begum, YUMI) Monitor Interventions for UA: [place] Adjusted (Pamela Begum RN) Frequency (min): OCC (Pamela Begum RN) Quality: Mild (Pamela Begum, YUMI) Duration (sec): 55-70 (Pamela Begum, RN) Resting Tone (Palpate): Relaxed (Pamela Begum, RN) Monitor Mode: External US (Pamela Begum, RN) Monitor Interventions for FHR: Ultrasound Adjusted (Pamela Begum RN) FHR Baseline Rate : 150 (Pamela Begum RN) FHR Baseline Changes: No Baseline Change (Pamela Begum RN) Variability: Minimal - Undetectable to <=5 bpm (Pamela Begum RN) Accelerations: None (Pamela Begum RN) Decelerations: None (Pamela Begum RN) Pain Scale: 1 (Pamela Begum RN) Pain Presence: Intermittent (Pamela Begum RN) Pain Type: Pressure (Pamela Begum RN) Pain Location: Perineum (Pamela Begum, RN) Pain Relief Measures: Comfort Measures (Pamela Begum, RN) Pain Coping: Talking Through Contractions (Pamela Begum, RN) IV/Blood Work: IV Infusing per Order (Pamela Begum, YUMI) Patient Position/Activity: Right Tilt; Low Fowlers (Pamela Begum, RN) Comfort Measures: Family Support (Pamela Begum, YUMI) I/O Interventions: Up to BR (Pamela Begum RN) Communication: RN at Bedside; RN Reviewed Strip (Pamela Begum RN) LaborFlag: Antepartum (QS system process) Datetime: 08/11/2016 09:00 Stage of : Labor (Pamela Begum RN) NBP Sys/Maureen/Mean (mmHg): 160 (QS system process) : 109 (QS system process) : 127 (QS system process) Pulse: 79 (QS system process) Respirations: 18 (Pamela Begum, YUMI) Monitor Mode: External (Pamela Begum RN) Monitor Interventions for UA: [place] Adjusted (Pamela Begum RN) Frequency (min): OCC (Pamela Begum RN) Quality: Mild (Pamela Begum RN) Duration (sec): 40-60 (Pamela Begum, YUMI) Resting Tone (Palpate): Relaxed (Pamela Begum, RN) Monitor Mode: External US (Pamela Begum RN) Monitor Interventions for FHR: Ultrasound Adjusted (Pamela Begum RN) FHR Baseline Rate : 145 (Pamela Begum, RN) FHR Baseline Changes: No Baseline Change (Pamela Begum, YUMI) Variability: Moderate 6-25 bpm (Pamela Begum, YUMI) Accelerations: 15X15 (Pamela Begum, RN) Decelerations: None (Pamela Begum, RN) Pain Scale: 1 (Pamela Begum, YUMI) Pain Presence: Intermittent (Pamela Begum, YUMI) Pain Type: Pressure (Pamela Begum, RN) Pain Location: Perineum (Pamela Begum, RN) Pain Relief Measures: Comfort Measures (Pamela Begum, YUMI) Pain Coping: Talking Through Contractions (Pamela Begum, YUMI) IV/Blood Work: IV Infusing per Order (Pamela Begum, YUMI) Comfort Measures: Rocking Chair; Family Support (Pamela Begum, RN) Communication: RN at Bedside; RN Reviewed Strip (Pamela Begum, RN) LaborFlag: Labor (QS system process) Datetime: 08/11/2016 08:30 Stage of : Antepartum (Pamela Begum, YUMI) Respirations: 18 (Pamela Begum, YUMI) Monitor Mode: External; Palpation (Pamela Begum, RN) Monitor Interventions for UA: [place] Adjusted (Pamela Begum, RN) Frequency (min): OCC (Pamela Begum, RN) Quality: Mild (Pamela Begum RN) Duration (sec): 50-60 (Pamela Begum, RN) Resting Tone (Palpate): Relaxed (Pamela Begum, RN) Monitor Mode: External US (Pamela Begum, RN) Monitor Interventions for FHR: Ultrasound Adjusted (Pamela Begum RN) FHR Baseline Rate : 155 (Pamela Begum, RN) FHR Baseline Changes: Unable to Determine (Pamela Begum, RN) Pain Scale: 1 (Pamela Begum RN) Pain Presence: Intermittent (Pamela Begum RN) Pain Type: Pressure (Pamela Begum RN) Pain Location: Perineum (Pamela Begum, YUMI) Pain Relief Measures: Comfort Measures (Pamela Begum RN) Pain Coping: Talking Through Contractions (Pamela Begum, YUMI) IV/Blood Work: IV Infusing per Order (Pamela Begum, YUMI) Comfort Measures: Rocking Chair; Family Support (Pamela Begum, YUMI) Instructional Method: Verbal; Patient Instructed; Family/Support Person Instructed; Verbalized Understanding (Pamela Begum, YUMI) Pain Management: Pain Scale/Goals; Comfort Measures (Pamela Begum, YUMI) Related: Common Discomforts of ; Maternal Physical Changes; Maternal Emotional Changes; Nutrition; Hydration; Activity and Rest (Pamela Begum, YUMI) Communication: RN at Bedside; RN Reviewed Strip (Pamela Begum, YUMI) LaborFlag: Antepartum (QS system process) Datetime: 08/11/2016 08:29 NBP Sys/Maureen/Mean (mmHg): 136 (QS system process) : 96 (QS system process) : 113 (QS system process) Pulse: 84 (QS system process) LaborFlag: Antepartum (QS system process) Datetime: 08/11/2016 08:00 Stage of : Antepartum (Pamela Begum RN) Respirations: 18 (Pamela Begum RN) Monitor Mode: External (Pamela Begum RN) Frequency (min): OCC (Pamela Begum RN) Quality: Mild (Pamela Begum RN) Duration (sec): 60-70 (Pamela Begum RN) Resting Tone (Palpate): Relaxed (Pamela Begum RN) Monitor Mode: External US (Pamela Begum RN) FHR Baseline Rate : 155 (Pamela Begum RN) FHR Baseline Changes: No Baseline Change (Pamela Begum RN) Variability: Moderate 6-25 bpm (Pamela Begum RN) Accelerations: None (Pamela Begum RN) Decelerations: None (Pamela Begum RN) Pain Scale: 0 (Pamela Begum RN) Pain Presence: None/Denies (Pamela Begum RN) Pain Type: N/A (Pamela Begum RN) Pain Relief Measures: Comfort Measures (Pamela Begum RN) Pain Coping: Talking Through Contractions (Pamela Begum RN) IV/Blood Work: IV Infusing per Order (Pamela Begum RN) Comfort Measures: Rocking Chair; Family Support (Pamela Begum RN) Communication: RN at Bedside; RN Reviewed Strip (Pamela Begum RN) LaborFlag: Antepartum (QS system process) Datetime: 08/11/2016 07:59 LaborFlag: Antepartum (QS system process) Datetime: 08/11/2016 07:40 Stage of : Antepartum (Pamela Begum RN) Datetime: 08/11/2016 07:30 LaborFlag: Antepartum (QS system process) Datetime: 08/11/2016 07:00 LaborFlag: Antepartum (QS system process) Datetime: 08/11/2016 06:59 LaborFlag: Antepartum (QS system process) Datetime: 08/11/2016 06:29 LaborFlag: Antepartum (QS system process) Datetime: 08/11/2016 05:29 LaborFlag: Antepartum (QS system process) Datetime: 08/11/2016 04:59 LaborFlag: Antepartum (QS system process) Datetime: 08/11/2016 04:29 LaborFlag: Antepartum (QS system process) Datetime: 08/11/2016 04:08 LaborFlag: Antepartum (QS system process) Datetime: 08/11/2016 03:29 LaborFlag: Antepartum (QS system process) Datetime: 08/11/2016 03:28 LaborFlag: Antepartum (QS system process) Datetime: 08/11/2016 02:59 LaborFlag: Antepartum (QS system process) Datetime: 08/11/2016 02:29 LaborFlag: Antepartum (QS system process) Datetime: 08/11/2016 01:59 LaborFlag: Antepartum (QS system process) Datetime: 08/11/2016 01:29 LaborFlag: Antepartum (QS system process) Datetime: 08/11/2016 00:59 LaborFlag: Antepartum (QS system process) Datetime: 08/11/2016 00:29 LaborFlag: Antepartum (QS system process) Datetime: 08/10/2016 23:59 LaborFlag: Antepartum (QS system process) Datetime: 08/10/2016 22:59 LaborFlag: Antepartum (QS system process) Datetime: 08/10/2016 22:30 LaborFlag: Antepartum (QS system process) Datetime: 08/10/2016 22:29 LaborFlag: Antepartum (QS system process) Datetime: 08/10/2016 15:06 LaborFlag: Antepartum (QS system process) Datetime: 08/10/2016 14:51 LaborFlag: Antepartum (QS system process) Datetime: 08/10/2016 14:36 LaborFlag: Antepartum (QS system process) Datetime: 08/10/2016 14:21 LaborFlag: Antepartum (QS system process) Datetime: 08/10/2016 14:06 LaborFlag: Antepartum (QS system process) Datetime: 08/10/2016 13:51 LaborFlag: Antepartum (QS system process) Datetime: 08/10/2016 13:36 LaborFlag: Antepartum (QS system process) Datetime: 08/10/2016 13:22 LaborFlag: Antepartum (QS system process) Datetime: 08/10/2016 13:06 LaborFlag: Antepartum (QS system process) Datetime: 08/10/2016 12:52 LaborFlag: Antepartum (QS system process) Datetime: 08/10/2016 12:36 LaborFlag: Antepartum (QS system process) Datetime: 08/10/2016 12:21 LaborFlag: Antepartum (QS system process) Datetime: 08/10/2016 12:07 LaborFlag: Antepartum (QS system process) Datetime: 08/10/2016 11:51 LaborFlag: Antepartum (QS system process) Datetime: 08/10/2016 11:36 LaborFlag: Antepartum (QS system process) Datetime: 08/10/2016 11:21 LaborFlag: Antepartum (QS system process) Datetime: 08/10/2016 11:06 LaborFlag: Antepartum (QS system process) Datetime: 08/10/2016 10:51 LaborFlag: Antepartum (QS system process) Datetime: 08/10/2016 10:45 LaborFlag: Antepartum (QS system process) Datetime: 08/10/2016 10:22 LaborFlag: Antepartum (QS system process) Datetime: 08/10/2016 10:20 LaborFlag: Antepartum (QS system process) Datetime: 08/05/2016 11:52 Temperature (C): 36.7 (QS system process) LaborFlag: Antepartum (QS system process) Datetime: 07/29/2016 17:45 Temperature (C): 36.9 (QS system process) LaborFlag: Antepartum (QS system process) Datetime: 07/19/2016 16:51 LaborFlag: Antepartum (QS system process) Datetime: 07/19/2016 16:36 LaborFlag: Antepartum (QS system process) Datetime: 07/19/2016 16:21 LaborFlag: Antepartum (QS system process) Datetime: 07/19/2016 16:06 LaborFlag: Antepartum (QS system process) Datetime: 07/19/2016 15:51 LaborFlag: Antepartum (QS system process) Datetime: 07/19/2016 15:36 LaborFlag: Antepartum (QS system process) Datetime: 07/19/2016 15:21 LaborFlag: Antepartum (QS system process) Datetime: 07/19/2016 15:06 LaborFlag: Antepartum (QS system process) Datetime: 07/19/2016 14:47 LaborFlag: Antepartum (QS system process) Datetime: 07/19/2016 14:43 LaborFlag: Antepartum (QS system process) Datetime: 07/13/2016 19:13 LaborFlag: Antepartum (QS system process) Datetime: 07/13/2016 18:43 LaborFlag: Antepartum (QS system process)
[2016-08-11] MEDS ORDERED: ACETAMINOPHEN 325 MG TABLET PO PRN (21:12)
[2016-08-11] MEDS ORDERED: DIPH/PERTUSS(ACELL)/TETANUS VAC/PF 0.5 ML SYR (>=10YO) IM PRN (21:12)
[2016-08-11] MEDS ORDERED: MORPHINE SULFATE 10 MG/ML INJ IV PRN ×2 (21:12→21:30)
[2016-08-11] MEDS ORDERED: MEASLES,MUMPS&RUBELLA VACC/PF 0.5 ML VIAL SUBCUT PRN (21:12)
[2016-08-11] MEDS ORDERED: SIMETHICONE 80 MG TAB.CHEW PO PRN (21:12)
[2016-08-11] MEDS ORDERED: OXYCODONE-ACETAMINOPHEN 5-325 MG TABLET PO PRN (21:12)
[2016-08-11] MEDS ORDERED: OXYTOCIN/NORMAL SALINE 1,000 ML IV PRN (21:12)
[2016-08-11] MEDS ORDERED: PROMETHAZINE HCL INJ 25 MG/1 ML VIAL IV PRN ×3 (21:12→21:30)
[2016-08-11] MEDS ORDERED: MEPERIDINE HCL/PF INJ 25 MG/1 ML DISP.SYRIN ONE ×2 (21:12→21:17)
[2016-08-11] MEDS ORDERED: FENTANYL CITRATE INJ/PF 100 MCG/2 ML AMPUL IV PRN ×3 (21:30)
[2016-08-11] MEDS ORDERED: ACETAMINOPHEN 100 ML IV ONE ×2 (21:30→22:16)
[2016-08-11] MEDS ORDERED: DIPHENHYDRAMINE HCL 50 MG/ML VIAL IV PRN (21:30)
[2016-08-11] MEDS ORDERED: ONDANSETRON HCL INJ/PF 4 MG/2 ML SDV IV PRN (21:30)
[2016-08-11] MEDS ORDERED: LABETALOL HCL INJ 20 MG/4 ML DISP.SYRIN IV PRN (21:30)
[2016-08-11] MEDS ORDERED: MEPERIDINE HCL/PF INJ 25 MG/1 ML DISP.SYRIN IV PRN (21:30)
[2016-08-11] MEDS ORDERED: KETOROLAC TROMETHAMINE INJ/PF 30 MG/1 ML SDV ONE (22:15)
[2016-08-11] MEDS: KETOROLAC TROMETHAMINE INJ/PF 30 MG/1 ML SDV IV SCH (22:28)
--- NOTE | 2016-08-11 22:38 | OPERATIVE REPORT E ---
Operative Report NAME: RHETT CADENA : 1990 AGE: 25Y DATE OF SURGERY: 08/11/2016 ROOM: LR200 PREOPERATIVE DIAGNOSES: 1. INTRAUTERINE AT 36 WEEKS AND 6 DAYS. 2. GESTATIONAL HYPERTENSIVE NONREASSURING HEART TONES. 3. FAILURE TO PROGRESS. POSTOPERATIVE DIAGNOSES: 1. INTRAUTERINE AT 36 WEEKS AND 6 DAYS. 2. GESTATIONAL HYPERTENSIVE NONREASSURING HEART TONES. 3. FAILURE TO PROGRESS. OPERATION: Low transverse hysterotomy section. SURGEON: KEESHA MOJICA M.D. ANESTHESIA: Dr. Urbano with a spinal. ESTIMATED BLOOD LOSS: Six-hundred mL. PATHOLOGY: None. FINDINGS: A female in cephalic presentation with Apgars of 8 and 9. PROCEDURE IN DETAIL: Patient was taken to the operating room, prepared and draped in a normal sterile fashion in the supine position with a leftward tilt. A transverse skin incision was made with a scalpel and carried through to the underlying layer of fascia with the same scalpel. The fascia was excised in midline with Candida and then dissected from the rectus muscle sharply with Candida. The rectus muscle was divided. The peritoneal cavity was entered sharply with Metzenbaum with good visualization of the uterus and the bladder. The bladder blade was inserted. The hysterotomy was nicked in the center with a scalpel and extended with surgeon's finger fracture. The was then delivered atraumatically and the nose and mouth were suctioned with the suction bulb and the cord was clamped and cut. The was handed off to awaiting headlight assembler. The cord blood was collected and the placenta was removed manually. The uterus was exteriorized and cleared of clots and debris. The hysterotomy was closed with 0 Monocryl in a running and locked fashion. For the second layer, the same suture was used to imbricate to ensure hemostasis. The uterus was returned to the abdomen and the peritoneal cavity was cleared of clots and debris. The rectus muscle and peritoneum were reapproximated with a 2-0 Chromic mattress stitch. The fascia was closed with 0 Vicryl. The subcutaneous layer was closed with plain catgut and the skin was closed with 4-0 Vicryl. Patient tolerated the procedure well. Sponge, lap, and needle counts were correct x2. The patient was taken to recovery in stable condition. DICTATING PHYSICIAN: KEESHA MOJICA M.D. [id number] PHY#: [id number] ID: [id number] JOB#: [id number] ACCT: [id number] cc:KEESHA MOJICA M.D. >
--- NOTE | 2016-08-11 22:54 | Delivery Summary ---
Del Sum A-C Datetime Report Generated by CPN: 08/11/2016 22:54 ADMISSION DATA Chief Complaint: Signs/Symptoms Gestational HTN Indication for Induction: Not Applicable Admission Impression: , Intrauterine ; No Active Labor; Intact Membranes; Obstetrical Complication Admit Provider Comments: Admitted for [address] De Los Santos Uric Acid 8.2, alk phos 200, plt 246 monitor and transfer to floor when bed is available Pt is taking Aldomet 500 BID Cat 2 strip, reposition,, IV bolus and eat Dr. De Los Santos aware of current status, HOLD Aldomet, denies headaches or any complaints DELIVERY PERSONNEL Delivery Doctor:: Radha Stoll MD Anesthesiologist:: Yovanny Urbano MD MEDICAL STENOGRAPHER:: Cj Boone CRNA Labor and Delivery Nurse:: June Esparza RN Labor and Delivery Nurse:: Shelton Lantigua RN Neonatal Nurse Practitioner:: HERNAN Rollins Nursery Nurse:: Ingris Barry RN Carroting Machine Operator/NURSE MANAGER: Simi Rizo CST Carroting Machine Operator/NURSE MANAGER: Selene Khan ST MATERNAL INFORMATION Delivery Anesthesia: Epidural Medications After Delivery: Pitocin Drip 20 Units/1000ml NSS Maternal Complications: Other Other Maternal Complications: PRE-ECLAMPSIA LABOR SUMMARY EDC: 09/03/2016 00:00 No. Babies in Womb: 1 Attempted: No Labor Anesthesia: IV Sedation LABOR INFORMATION Reason for Induction: Gestational Hypertension; Other Reason for Induction- Other: PRE-ECLAMPSIA Cervical Ripening Agents: Cervidil Oxytocin: Induction Group B Beta Strep: UNKNOWN Antibiotics # of Doses: 0 Steroids Given: None Reason Steroids Not Administered: Not Applicable MEMBRANES Membranes Rupture Method: Artificial Rupture of Membranes: 08/11/2016 17:51 Length of Rupture (hr): 2.47 Amniotic Fluid Color: Clear Amniotic Fluid Amount: Small Amniotic Fluid Odor: None STAGES OF LABOR Stage 3 hr: 0 Stage 3 min: 0 VAGINAL DELIVERY Episiotomy: None Laceration Extension: N/A Laceration Type: None Laceration Repair: Not Applicable Sponge Count Correct: N/A Sharps Count Correct: N/A CSECTION DELIVERY Primary Indication: Nonreassuring Status CSection Urgency: Non-Scheduled CSection Incidence: Primary Labor: Labor Elective: Nonelective CSection Incision: Lower Uterine Transverse BABY A INFORMATION Infant Delivery Date/Time: 08/11/2016 20:19 Method of Delivery: Born in Route : No : N/A Forceps: N/A Vacuum Extraction: N/A Shoulder Dystocia : No PRESENTATION/POSITION BABY A Presentation: Cephalic Cephalic Presentation: Vertex Breech Presentation: N/A PLACENTA INFORMATION BABY A Placenta Delivery Time : 08/11/2016 20:19 Placenta Method of Delivery: Manual Removal Placenta Status: Delivered SCORES BABY A Heart Rate 1 min: >100 bpm Resp Effort 1 min: Good Cry Reflex Irritability 1 min: Cough or Sneeze or Pulls Away Muscle Tone 1 min: Active Motion Color 1 min: Blue/Pale Resuscitation Effort 1 min: Tactile Stimulation SCORE 1 MIN: 8 Heart Rate 5 min: >100 bpm Resp Effort 5 min: Good Cry Reflex Irritability 5 min: Cough or Sneeze or Pulls Away Muscle Tone 5 min: Active Motion Color 5 min: Body Herrin, Extremities Blue Resuscitation Effort 5 min: Tactile Stimulation SCORE 5 MIN: 9 INFORMATION BABY A Gestational Age at Delivery: 36.5 Gestational Status: Late - 34- 36.6 Weeks Outcome : Liveborn Infant Condition : Stable Infant Sex: Female IDENTIFICATION BABY A Verification Date/Time: 08/11/2016 20:25 ID Band Number: [id number] Mother's Name Verified: Yes Infant RN Verifying Infant: R Ha, RNC Additional Verifying Personnel: D Linda, US WEIGHT/LENGTH BABY A Infant Birthweight (gm): 2640 Weight (lb): 5 Weight (oz): 13 Length (in): 18.75 Infant Length (cm): 47.63 CORD INFORMATION BABY A No. Cord Vessels: 3 Nuchal Cord : N/A Cord Blood Taken: Yes-For Storage (Mom's Blood type +) Infant Suction: Mouth; Nose ASSESSMENT BABY A Infant Complications: Multiple Late Decels; Multiple Variable Decels Physical Findings at Delivery: Puncture Wound from Scalp Electrode Infant Respirations: Appears Normal Skin to Skin: Yes Beef Cattle Grazier/ALS Called : No Infant Care By: Merari Barry RN Transferred To: Nursery BABY B INFORMATION : N/A
--- NOTE | 2016-08-11 23:11 | Admission Physical ---
Datetime Report Generated by CPN: 08/11/2016 23:10 CURRENT ADMISSION Hx Assessment: The History has been Reviewed and is Current Chief Complaint: Signs/Symptoms Gestational HTN Indication for Induction: Not Applicable Admit Plan: Admit to Unit; Observation/Evaluation ALLERGIES Medication Allergies: Yes Medication Allergies: cefuroxime axetil (08/10/2016); ciprofloxacin HCl (08/10/2016); ciprofloxacin (08/10/2016); amoxicillin (08/10/2016) Medication Allergies: cefuroxime axetil (08/05/2016); ciprofloxacin HCl (08/05/2016); ciprofloxacin (08/05/2016); amoxicillin (08/05/2016) Medication Allergies: cefuroxime axetil (07/29/2016); ciprofloxacin HCl (07/29/2016); ciprofloxacin (07/29/2016); amoxicillin (07/29/2016) Medication Allergies: cefuroxime axetil (07/19/2016); ciprofloxacin HCl (07/19/2016); ciprofloxacin (07/19/2016); amoxicillin (07/19/2016) Medication Allergies: cefuroxime axetil (04/02/2016); ciprofloxacin HCl (04/02/2016); ciprofloxacin (04/02/2016); amoxicillin (04/02/2016) Latex: No Latex Allergies Food Allergies: denies Environmental Allergies: denies OBSTETRICAL HISTORY EDC: 09/03/2016 00:00 : 1 Para: 0 Para: 0 Term: 0 : 0 SAB: 0 IAB: 0 Ectopic: 0 Livin Cesareans: 0 VBACs: 0 Multiple Births: 0 Gestational Diabetes: No Rh Sensitization: No Incompetent Cervix: No LETI: No Infertility: No ART Treatment: No Uterine Anomaly: No IUGR: No Hx Previous C/S: No Macrosomia: No Hx Loss/Stillborn: No PIH: No Hx : No Placenta Previa/Abruption: No Depression/PP Depression: No PTL/PROM: No Post Hemorrhage: No Current Procedures: Ultrasound; NST Obstetrical History Comments: G1: current SEE RECORDS Alcohol: No Marijuana : Yes Marijuana Comments: positive THC UDS Cocaine: No Other Illicit Drugs: No Cigarettes: Former Smoker. [id number] MEDICAL HISTORY Diabetes: No Blood Transfusion: No Pulmonary Disease (Asthma, TB): Yes Breast Disease: No Hypertension: No Public Relations Senior Associate Surgery: No Heart Disease: No Hosp/Surgery: No Autoimmune Disorder: No Anesthetic Complications: No Kidney Disease: No Abnormal Pap Smear: No Neuro/Epilepsy: No Psychiatric Disorders: No Other Medical Diseases: No Hepatitis/Liver Disease: No Significant Family History: No Varicosities/Phlebitis: No Trauma/Violence : No Thyroid Dysfunction: No Medical History Comments: Asthma (Only has flare ups during respiratory illness) INFECTIOUS HISTORY Gonorrhea: No Genital Herpes: No Chlamydia: No Tuberculosis: No Syphilis: No Hepatitis: No HIV/AIDS Exposure: No Rash or Viral Illness: No HPV: No Infectious History Comments: BV: 10/18/16 PHYSICAL EXAM General: Normal HEENT: Normal Neurologic: Normal Thyroid: Normal Heart: Normal Lungs: Normal Breast: Deferred Back: Normal Abdomen: Normal Genitourinary Exam: Normal Extremities: Normal DTRs: Normal Pelvic Type: Adequate Physical Exam Comments: Admitted for 23 hour observation for gestational hypertension Obesity Late entry to care + TCH in urine EFW 6-9 Vital Signs: Reviewed VAGINAL EXAM Dilatation: 3 Effacement: 75 Station: -2 MEMBRANES Membranes: Ruptured Membranes: Intact Membranes: Intact Amniotic Fluid Color: Clear FETUS A EGA: 36.4 Monitoring: External US FHR- Baseline: 140 Variability: Minimal - Undetectable to <=5bpm Decelerations: None FHR Category: Category II Admit Comment: Admitted for [address] De Los Santos Uric Acid 8.2, alk phos 200, plt 246 monitor and transfer to floor when bed is available Pt is taking Aldomet 500 BID Cat 2 strip, reposition,, IV bolus and eat Dr. De Los Santos aware of current status, HOLD Aldomet, denies headaches or any complaints PLANS FOR LABOR AND DELIVERY Labor and Delivery: None Pain Management: Epidural Feeding Preference: Breast Benefit of Breast Feed Discussed: Yes Circumcision: N/A INFORMED CONSENT Informed Consent Obtained: Vaginal Delivery; Section Delivery; Risks, Benefits and Alternatives Discussed Assignment: Lucero Bazan MD Signature: with User ID: [email or web address] : with User ID: [email or web address]
[2016-08-12] MEDS: OXYCODONE-ACETAMINOPHEN 5-325 MG TABLET PO PRN ×4 (02:01→16:57)
[2016-08-12] MEDS: RINGERS SOLUTION,LACTATED 1,000 ML IV PRN ×2 (03:58→14:17)
[2016-08-12] MEDS: KETOROLAC TROMETHAMINE INJ/PF 30 MG/1 ML SDV IV SCH ×2 (05:32→14:17)
[2016-08-12 06:55] LABS: HEMATOCRIT 30.1 % (36.0-47.0); HGB HCT DIFFERENCE 0.8; MEAN CORPUSCULAR HEMOGLOBIN 29.7 pg (27.0-33.4); MEAN CORPUSCULAR HGB CONC 34.2 g/dL (32.0-36.0); MEAN CORPUSCULAR VOLUME 87 fl (80-97); RED BLOOD COUNT 3.47 10^6/uL (3.72-5.28); RED CELL DISTRIBUTION WIDTH 14.2 % (11.5-14.0); WHITE BLOOD COUNT 13.8 10^3/uL (4.0-10.5)
--- NOTE | 2016-08-12 07:00 | L&D Flow Sheet ---
LD Flowsheet Datetime Report Generated by CPN: 08/12/2016 07:00 Datetime: 08/11/2016 23:00 NBP Sys/Maureen/Mean (mmHg): 132 (Shelton Lantigua RN) : 66 (Shelton Lantigua RN) : 96 (Shelton Lantigua RN) Pulse: 65 (Shelton Lantigua RN) Respirations: 16 (Shelton Lantigua RN) SpO2 (%): 99 (Shelton Lantigua, YUMI) Datetime: 08/11/2016 22:40 NBP Sys/Maureen/Mean (mmHg): 152 (Shelton Rhina, RN) : 83 (Shelton Rhina, RN) : 116 (Shelton Rhina, RN) Pulse: 67 (Shelton Rhina, RN) Respirations: 17 (Shelton Rhina, RN) SpO2 (%): 99 (Shelton Rhina, RN) Datetime: 08/11/2016 22:25 NBP Sys/Maureen/Mean (mmHg): 131 (Shelton Rhina, RN) : 72 (Shelton Rhina, RN) : 90 (Shelton Rhina, RN) Pulse: 65 (Shelton Rhina, RN) Respirations: 16 (Shelton Rhina, RN) SpO2 (%): 99 (Shelton Rhina, RN) Datetime: 08/11/2016 22:20 NBP Sys/Maureen/Mean (mmHg): 132 (Shelton Rhina, RN) : 90 (Shelton Rhina, RN) : 105 (Shelton Rhina, RN) Pulse: 65 (Shelton Rhina, RN) SpO2 (%): 100 (Shelton Rhina, RN) Datetime: 08/11/2016 22:15 NBP Sys/Maureen/Mean (mmHg): 145 (Shelton Lantigua RN) : 91 (Shelton Lantigua, RN) : 116 (Shelton Lantigua, RN) Pulse: 61 (Shelton Lantigua, RN) Respirations: 18 (Shelton Rhina, RN) SpO2 (%): 99 (Shelton Lantigua, RN) Pain Scale: 2 (Shelton Lantigua RN) Pain Presence: Constant (Shelton Lantigua, RN) Pain Type: Ache (Shelton Lantigua, RN) Pain Location: Abdomen (Shelton Lantigua, RN) Pain Goal: 0 (Shelton Lantigua RN) Pain Relief Measures: Pain Medication Given; Comfort Measures (Shelton Lantigua, YUMI) Datetime: 08/11/2016 22:10 NBP Sys/Maureen/Mean (mmHg): 133 (Shelton Lantigua, RN) : 94 (Shelton Lantigua, RN) : 105 (Shelton Lantigua, RN) Pulse: 71 (Shelton Lantigua, RN) Respirations: 21 (Shelton Rhnia, RN) SpO2 (%): 100 (Shelton Rhina, RN) Datetime: 08/11/2016 22:05 NBP Sys/Maureen/Mean (mmHg): 162 (Sheltonvalencia Lantigua, RN) : 103 (Shelton Rhina, RN) : 132 (Annotations: Pt frustrated with family at time BP was taken) (Shelton Rhina, RN) Pulse: 74 (Shelton Rhina, RN) Respirations: 18 (Shelton Rhina, RN) SpO2 (%): 99 (Shelton Rhina, RN) Datetime: 08/11/2016 22:00 NBP Sys/Maureen/Mean (mmHg): 140 (Shelton Rhina, RN) : 86 (Shelton Rhina, RN) : 108 (Shelton Rhina, RN) Pulse: 60 (Shelton Rhina, RN) Respirations: 14 (Shelton Rhina, RN) SpO2 (%): 100 (Shelton Rhina, RN) Datetime: 08/11/2016 21:45 Stage of : Recovery (Shelton Rhina, RN) NBP Sys/Maureen/Mean (mmHg): 130 (Shelton Rhina, RN) : 76 (Shelton Rhina, RN) : 96 (Shelton Rhina, RN) Pulse: 79 (Shelton Rhina, RN) Respirations: 12 (Shelton Rhina, RN) SpO2 (%): 99 (Shelton Rhina, RN) Datetime: 08/11/2016 21:30 Stage of : Recovery (Shelton Rhina, RN) NBP Sys/Maureen/Mean (mmHg): 126 (Shelton Rhina, RN) : 79 (Shelton Rhina, RN) : 95 (Shelton Rhina, RN) Pulse: 76 (Shelton Rhina, RN) Respirations: 16 (Shelton Rhina, RN) SpO2 (%): 98 (Shelton Rhina, RN) Datetime: 08/11/2016 21:15 Stage of : Recovery (Shelton Rhina, RN) NBP Sys/Maureen/Mean (mmHg): 140 (Shelton Gayford, RN) : 70 (Shelton Gayford, RN) : 92 (Shelton Rhina, RN) Pulse: 90 (Shelton Rhina, RN) Respirations: 21 (Shelton Rhina, RN) SpO2 (%): 98 (Shelton Rhina, RN) Datetime: 08/11/2016 21:00 Stage of : Recovery (Shelton Lantigua, RN) NBP Sys/Maureen/Mean (mmHg): 128 (Shelton Rhina, RN) : 77 (Shelton Rhina, RN) : 101 (Shelton Rhina, RN) Pulse: 97 (Shelton Rhina, RN) Respirations: 24 (Shelton Rhina, RN) SpO2 (%): 98 (Shelton Rhina, RN) Pain Assessment Comments: (Shelton Lantigua, RN) Datetime: 08/11/2016 20:55 Stage of : Recovery (Shelton Lantigua RN) NBP Sys/Maureen/Mean (mmHg): 132 (Shelton Lantigua, RN) : 71 (Shelton Lantigua, RN) : 100 (Shelton Lantigua, RN) Pulse: 98 (Shelton Lantigua RN) Respirations: 14 (Shelton Lantigua, RN) SpO2 (%): 98 (Shelton Lantigua, RN) Temperature (F): 97.7 (Shelton Lantigua, RN) Temperature (C): 36.5 (QS system process) Temperature Route: Oral (Shelton Lantigua RN) Pain Scale: 0 (Shelton Lantigua RN) Pain Presence: None/Denies (Shelton Lantigua RN) Pain Type: N/A (Shelton Lantigua, RN) Datetime: 08/11/2016 19:55 Monitor Mode: Internal (Shelton Lantigua, RN) Frequency (min): 2-2.5 (Shelton Lantigua, RN) Quality: Moderate (Shelton Lantigua, RN) Duration (sec): 70-110 (Shelton Lantigua, RN) Resting Tone (Palpate): Relaxed (Shelton Lantigua RN) Monitor Mode: External US (Shelton Lantigua, RN) FHR Baseline Rate : 150 (Shelton Lantigua, RN) Variability: Moderate 6-25 bpm (Shelton Lantigua, RN) Accelerations: None (Shelton Rhina, RN) Decelerations: Variable (Shelton Lantigua, RN) Datetime: 08/11/2016 19:43 NBP Sys/Maureen/Mean (mmHg): 134 (QS system process) : 89 (QS system process) : 107 (QS system process) Pulse: 97 (QS system process) Antibiotics: Gentamicin IV (mg) @ 100 (Shelton Lantigua, RN) LaborFlag: Labor (QS system process) Datetime: 08/11/2016 19:37 Antibiotics: Clindamycin IV 900 mg (Shelton Lantigua, RN) Datetime: 08/11/2016 19:36 I/O Interventions: Nettles Cath Inserted (Shelton Lantigua RN) Patient Care Comments: Placed by Igor Barron (Shelton Lantigua RN) Datetime: 08/11/2016 19:34 Antiemetics/Antacids: Bicitra 15 ml PO (Shelton Lantigua RN) Datetime: 08/11/2016 19:30 Monitor Mode: Internal (Shelton Lantigua RN) Frequency (min): 2.5-4.5 (Shelton Lantigua RN) Quality: Moderate (Shelton Lantigua RN) Duration (sec): 70-100 (Shelton Lantigua RN) Resting Tone (Palpate): Relaxed (Shelton Lantigua RN) Monitor Mode: External US (Shelton Lantigua RN) FHR Baseline Rate : 160 (Shelton Lantigua RN) Variability: Minimal - Undetectable to <=5 bpm (Shelton Lantigua RN) Accelerations: None (Shelton Lantigua RN) Decelerations: Variable (Shelton Rhina, RN) Datetime: 08/11/2016 19:14 NBP Sys/Maureen/Mean (mmHg): 145 (QS system process) : 89 (QS system process) : 112 (QS system process) Pulse: 69 (QS system process) LaborFlag: Labor (QS system process) Datetime: 08/11/2016 19:07 Communication: Report Given to @ M BERFORD, RN _ S LATTIBEAUDIER, RN- CARE RELINQUISHED (Pamela Felecia Roulund, RN) Datetime: 08/11/2016 19:04 Stage of : Labor (Pamela Begum RN) Respirations: 18 (Pamela Begum RN) Monitor Mode: Internal (Pamela Begum RN) Frequency (min): 3-4.5 (Pamela Begum RN) Quality: Moderate (Pamela Begum RN) Duration (sec): 60-80 (Pamela Begum RN) Resting Tone (Palpate): Relaxed (Pamela Begum RN) Monitor Mode: Internal Scalp Electrode (Pamela Begum RN) FHR Baseline Rate : 170 (Pamela Begum RN) FHR Baseline Changes: Tachycardia (Pamela Begum RN) Variability: Minimal - Undetectable to <=5 bpm (Pamela Begum RN) Accelerations: None (Pamela Begum RN) Decelerations: None (Pamela Begum RN) Pain Scale: 3 (Pamela Begum RN) Pain Presence: Intermittent (Pamela Begum RN) Pain Type: Contraction (Pamela Begum RN) Pain Location: Abdomen (Pamela Begum RN) Pain Relief Measures: Comfort Measures (Pamela Begum RN) Pain Coping: Talking Through Contractions; Breathing Through Contractions (Pamela Begum RN) IV/Blood Work: IV Infusing per Order (Pamela Begum RN) Patient Position/Activity: Right Lateral; Low Fowlers (Pamela Begum RN) Comfort Measures: Breathing/Relaxation; Family Support (Pamela Begum RN) Provider Reviewed Strip: Yes (Pamela Begum RN) Communication: RN at Bedside; RN Reviewed Strip; Provider at Bedside (Pamela Begum RN) Communication Comments: C/SECTION CALLED (Pamela Begum RN) LaborFlag: Labor (QS system process)
[2016-08-12 07:02] LABS: HEMOGLOBIN 10.3 g/dL (12.0-15.5)
[2016-08-12] MEDS: PRENATAL VITAMIN W-O CA NO5/FE FUMARATE/FA CAPSULE PO SCH (09:28)
[2016-08-12] MEDS: METHYLDOPA 250 MG TABLET PO SCH (09:28)
[2016-08-12] MEDS: DOCUSATE SODIUM 100 MG CAPSULE PO SCH ×2 (09:29→17:53)
--- NOTE | 2016-08-12 13:10 | PDOC PROGRESS REPORT ---
Subjective-OB Subjective: Post Delivery Day: 25 year old. Some burning pain at left of incision. Denies any PEÑA or visual changes. Physical Exam (OB) Vital Signs: Temp Pulse Resp BP Pulse Ox 97.9 F 67 16 157/96 H 100 08/12/16 08:12 08/12/16 08:12 08/12/16 08:12 08/12/16 08:12 08/12/16 08:12 Intake & Output 08/11/16 08/12/16 08/13/16 06:59 06:59 06:59 Intake Total 830 1880 Output Total 1400 Balance 830 480 Weight 101.25 kg - PIH/Pre-Eclampsia Clonus: Negative Headache: Absent Epigastric Pain: No Visual Changes: No - Dressing Removed: No Incision: Dressing Closure Type: Surgical Glue - Lochia Lochia Amount: Small 10-25 ml Lochia Color: Rubra/Red - Abdomen Description: Soft, Round Hernia Present: No Bowel Sounds: Normoactive Flatus Presence: Present Stool: No Fundal Description: Firm Fundal Height: u/u - u/2 Objective-Diagnostic Laboratory: 08/12/16 06:35 08/11/16 07:22 08/12/16 06:35 WBC 13.8 H RBC 3.47 L Hgb 10.3 L D Hct 30.1 L MCV 87 MCH 29.7 MCHC 34.2 RDW 14.2 H Plt Count 177
[2016-08-12] MEDS: NIFEDIPINE 30 MG TAB.ER.24 PO SCH (14:25)
[2016-08-12] MEDS: IBUPROFEN 800 MG TABLET PO SCH ×2 (17:08→23:14)
--- NOTE | 2016-08-12 18:00 | L&D Current Admission ---
Current Admit Datetime Report Generated by CPN: 08/12/2016 18:00 ADMISSION INFORMATION Current Admit Date/Time: 08/10/2016 12:49 (08/10/2016 10:22:Argenis Murillo RN) Reason for Admission: Observation (08/10/2016 10:22:Argenis Murillo RN) Chief Complaint: Went into [facility] this morning, failed NST and had protein in urine and high blood pressures in the office. Dr. Rashid sent her over for eval. (08/10/2016 22:30:Shelton Lantigua RN) Medications During : Albuterol MDI; Methyldopa (Aldomet); Vitamin; Rantidine (Zantac) (08/10/2016 10:22:Argenis Murillo RN) Meds During -Oth: Zyrtec, TUMS (08/10/2016 10:22:Argenis Murlilo RN) EGA per Dates: 36.4 (08/10/2016 10:22:QS system process) Method of Arrival: Ambulatory (08/10/2016 10:22:Argenis Murillo RN) Admitted From: Home (08/10/2016 10:22:Argenis Murillo RN) Reason for Induction- Other: 23 hour observation for GHTN (08/10/2016 10:22:Argenis Murillo RN) Records Available: Yes (08/10/2016 10:22:Argenis Murillo RN) General Admission Information: Reviewed (08/10/2016 10:22:Argenis Murillo RN) General Admission Reviewed By: Yadi Murillo RN (08/10/2016 10:22:Argenis Murillo RN) BELONGINGS/ADVANCED DIRECTIVES Valuables/Personal Effects: None (08/10/2016 10:22:Argenis Murillo RN) Other Belongings: see consents (08/10/2016 10:22:Argenis Murillo RN) Disposition of Belongings: Sent Home (08/10/2016 10:22:Argenis Murillo RN) Advance Direct for Healthcare: No, and Wants No Information (08/10/2016 10:22:Argenis Murillo RN) Durable Power of Metal Mockup Maker: No (08/10/2016 10:22:Argenis Murillo RN) Living Will: No (08/10/2016 10:22:Argenis Murillo RN) Organ Donor: Yes (08/10/2016 10:22:Argenis Murillo RN) Pt Rights Information Given: Yes (08/10/2016 10:22:Argenis Murillo RN) Pt Understands Pt Rights: Yes (08/10/2016 10:22:Argenis Murillo RN) LEARNING ASSESSMENT Knowledge Level: Understands L_D Process; Understands Care Activities; Had Pre-Hospital Education; Understands Diagnosis (08/10/2016 10:22:Argenis Murillo RN) Barriers to Learning: None (08/10/2016 10:22:Argenis Murillo RN) Learning Readiness: Motivated (08/10/2016 10:22:Argenis Murillo RN) Learns Best By: 1 to 1 Instruction (08/10/2016 10:22:Argenis Murillo RN) Learning Needs: Labor and Delivery Process (08/10/2016 10:22:Argenis Murillo RN) DOMESTIC VIOLANCE SCREENING Dom Viol Threatened/Hurt: No (08/10/2016 10:22:Argenis Murillo RN) Hx of Abuse/Neglect past 2yrs: No (08/10/2016 10:22:Argenis Murillo RN) Feel Unsafe Going Home: No (08/10/2016 10:22:Argenis Murillo RN) Addt'l Observ Indicating Abuse: No (08/10/2016 10:22:Argenis Murillo RN) Reason Unable to Complete Screen: N/A, Screen Completed (08/10/2016 10:22:Argenis Murillo RN) Considered Personal Harm/Suicide: No (08/10/2016 10:22:Argenis Murillo RN) NUTRITIONAL/FUNCTIONAL SCREENING Problem with Appetite >5 Days: No (08/10/2016 10:22:Argenis Murillo RN) Chew/Swallow Difficulties: No (08/10/2016 10:22:Argenis Murillo RN) Inappropriate Wt Gain/Loss: No (08/10/2016 10:22:Argenis Murillo RN) Presence Skin Breakdown/Ulcer: No (08/10/2016 10:22:Argenis Murillo RN) Special Diet: No (08/10/2016 10:22:Argenis Murillo RN) Pt Requests Well Service Derrick Worker Visit: No (08/10/2016 10:22:Argenis Murillo RN) Hx of Any of the Following?: N/A (08/10/2016 10:22:Argenis Murillo RN) New Diagnosis of: Gestational Hypertension (08/10/2016 10:22:Argenis Murillo RN) Requires Assist w/Ambulation: No (08/10/2016 10:22:Argenis Murillo RN) Uses Assist Device to Ambulate: No (08/10/2016 10:22:Argenis Murillo RN) Pt Requires Help w/ADL's: No (08/10/2016 10:22:Argenis Murillo RN)
--- NOTE | 2016-08-12 18:00 | L&D General Admission ---
General Admit Datetime Report Generated by CPN: 08/12/2016 18:00 INFORMATION Patient Age: 25 (06/25/2016 13:50:QS system process) EDC: 09/03/2016 00:00 (07/13/2016 18:42:Pamela Begum RN) : 1 (07/13/2016 18:42:Pamela Begum RN) Para: 0 (07/13/2016 20:30:June Esparza RN) Term: 0 (07/13/2016 18:42:Pamela Begum RN) : 0 (07/13/2016 18:42:Pamela Begum RN) Spontaneous Abortions: 0 (07/13/2016 18:42:Pamela Begum RN) Induced Abortions: 0 (07/13/2016 18:42:Pamela Begum RN) Livin (07/13/2016 18:42:Pamela Begum RN) Cesareans: 0 (07/13/2016 18:42:Pamela Begum RN) VBACs: 0 (07/13/2016 18:42:Pamela Begum RN) Ectopic: 0 (07/13/2016 18:42:Pamela Begum RN) Multiple Births: 0 (07/13/2016 18:42:Pamela Begum RN) Baby, Number in Womb: 1 (07/13/2016 20:30:June Esparza RN) CARE Primary Tank Car Loader: [facility] (07/13/2016 18:42:Pamela Begum RN) Month of 1st Visit: December (07/13/2016 18:42:EDILIA Bonilla) Adequate Care: Yes (07/13/2016 18:42:Pamela Begum RN) Prepregnancy Weight (lb): 200 (07/13/2016 18:42:EDILIA Bonilla) Prepregnancy Weight (kg): 90.9 (07/13/2016 18:42:QS system process) Height (in): 65 (08/10/2016 10:11:QS system process) ALLERGIES Medication Allergy: Yes (07/13/2016 18:42:Pamela Begum RN) Medication Allergies: cefuroxime axetil (08/10/2016); ciprofloxacin HCl (08/10/2016); ciprofloxacin (08/10/2016); amoxicillin (08/10/2016) (08/10/2016 10:09:QS system process) Latex Allergy: No Latex Allergies (07/13/2016 18:42:Pamela Begum RN) Food Allergies: denies (07/13/2016 18:42:Chinyere Stoll RN) Environmental Allergies: denies (07/13/2016 18:42:Chinyere Stoll RN) COMMUNICATION Primary Language: Samoan (07/13/2016 18:42:Pamela Begum RN) Medical Tx Preferred Language: Samoan (07/13/2016 18:42:Pamela Begum RN) Communication Barrier(s): None (07/13/2016 18:42:Pamela Begum RN) DEMOGRAPHICS Address: [address] [place] [id number] (06/25/2016 13:50:QS system process) Zipcode: [address] (06/25/2016 13:50:QS system process) Home (06/25/2016 13:50:QS system process) Work (06/25/2016 13:50:QS system process) SSN: [id number] (06/25/2016 13:50:QS system process) Next of Kin Name: CAROLINE GRANT (06/25/2016 13:50:QS system process) Next of Kin (06/25/2016 13:50:QS system process) Next of Kin Relationship: MO (06/25/2016 13:50:QS system process) Date of : 1990 (06/25/2016 13:50:QS system process) Marital Status: Single (06/25/2016 13:50:QS system process) Sex: Female (06/25/2016 13:50:QS system process) Race: (06/25/2016 13:50:QS system process) Ethnicity: Non- or (06/25/2016 13:50:QS system process) Congregational: Church (06/25/2016 13:50:QS system process) DRUG AND ALCOHOL USE Alcohol: No (07/13/2016 18:42:Chinyere Stoll RN) Cigarettes: Former Smoker. [id number] (07/13/2016 18:42:Chinyere Stoll RN) Marijuana: Yes (07/13/2016 18:42:Argenis Murillo RN) Marijuana Comments: positive THC UDS (07/13/2016 18:42:Joy Nieto RN) Cocaine: No (07/13/2016 18:42:Chinyere Stoll RN) Other Illicit Drugs: No (07/13/2016 18:42:Chinyere Stoll RN) VACCINE HISTORY Influenza Vaccine: Yes (07/13/2016 18:42:Chinyere Stoll RN) Pneumococcal Vaccine: No (07/13/2016 18:42:Chinyere Stoll RN) Tetanus Vaccine: Yes (07/13/2016 18:42:Chinyere Stoll RN) Tdap Vaccine: Yes (07/13/2016 18:42:Chinyere Stoll RN) Hepatitis B Vaccine: Yes (07/13/2016 18:42:Chinyere Stoll RN) Tutor: [facility] (07/13/2016 18:42:Chinyere Stoll RN) Feeding Preference: Breast (07/13/2016 18:42:Chinyere Stoll RN) Benefit of Breast Feed Discussed: Yes (07/13/2016 18:42:Chinyere Stoll RN) Circumcision: N/A (07/13/2016 18:42:Chinyere Stoll RN) Classes Attended: No (07/13/2016 18:42:Chinyere Stoll RN) Tubal Ligation: No (07/13/2016 18:42:Chinyere Stoll RN) Tubal Authorization Signed: N/A (07/13/2016 18:42:Chinyere Stoll RN) Consent: N/A (07/13/2016 18:42:Chinyere Stoll RN) Consent Signed: N/A (07/13/2016 18:42:Chinyere Stoll RN) Pain Management Plans: Epidural (07/13/2016 18:42:Chinyere Stoll RN) Plans for Labor and Delivery: None (07/13/2016 18:42:Chinyere Stoll RN) Support Person: Dionicio Monroy (07/13/2016 18:42:Chinyere Stoll RN) Support Person Relationship: Significant Other (07/13/2016 18:42:Chinyere Stoll RN) Cultural/Spritual Practice: No (07/13/2016 18:42:Chinyere Stoll RN) Spir/Cult Dietary Needs: No (07/13/2016 18:42:Chinyere Stoll RN) LIVING SITUATION/DISCHARGE PLAN Living Arrangements: House (07/13/2016 18:42:Chinyere Stoll RN) Adequate Access to:: Electric; Heat; Refrigeration; Plumbing/Running water; Phone; Transportation (07/13/2016 18:42:Chinyere Stoll RN) WIC Program: Yes (07/13/2016 18:42:Chinyere Stoll RN) Discharge Flat Knitter Helper Person: Dionicio Monroy (07/13/2016 18:42:Chinyere Stoll RN) Person to Help after Discharge: Dionicio Monroy (07/13/2016 18:42:Chinyere Stoll RN) Currently Using Commun Resources: Yes (07/13/2016 18:42:Chinyere Stoll RN) Outside Agency/Cylinder Block Hole Reliner: No (07/13/2016 18:42:Chinyere Stoll RN) Car Seat for Discharge: Yes (07/13/2016 18:42:Chinyere Stoll RN) Adoption Requested: No (07/13/2016 18:42:Chinyere Stoll RN) Pt Contact w/ Post : N/A (07/13/2016 18:42:Chinyere Stoll RN) LABS Blood Type: B Positive (07/13/2016 18:42:Argenis Murillo RN) Antibody Screen: negative (07/13/2016 18:42:Argenis Murillo RN) Hemoglobin: 10.3 L (08/12/2016 06:35:QS system process) Hematocrit: 30.1 L (08/12/2016 06:35:QS system process) MCV: 87 (08/12/2016 06:35:QS system process) Group Beta Strep: UNKNOWN (07/13/2016 18:42:Pamela Begum RN) Gonorrhea: Negative (07/13/2016 18:42:Joy Nieto RN) Chlamydia: Negative (07/13/2016 18:42:Argenis Murillo RN) RPR/VDRL: Nonreactive (07/13/2016 18:42:Argenis Murillo RN) HIV Exposure Test: Negative (07/13/2016 18:42:Argenis Murillo RN) Hepatitis B: Negative (07/13/2016 18:42:Argenis Murillo RN) Rubella: Immune (07/13/2016 18:42:Argenis Murillo RN) Varicella: Non Susceptible (07/13/2016 18:42:Argenis Murillo RN) OB/PREVIOUS HISTORY Previous Procedures: None (07/13/2016 18:42:June Esparza RN) Current Procedures: Ultrasound; NST (07/13/2016 18:42:Chinyere Stoll RN) History of Previous : No (07/13/2016 18:42:Chinyere Stoll RN) History of Gestational Diabetes: No (07/13/2016 18:42:Chinyere Stoll RN) History of PIH: No (07/13/2016 18:42:Chinyere Stoll RN) History of Incompetent Cervix: No (07/13/2016 18:42:Chinyere Stoll RN) History of Placenta Previa/Abrup: No (07/13/2016 18:42:Chinyere Stoll RN) History of Macrosomia: No (07/13/2016 18:42:Chinyere Stoll RN) History of IUGR: No (07/13/2016 18:42:Chinyere Stoll RN) History of Hemorrhage: No (07/13/2016 18:42:Chinyere Stoll RN) History of Loss/Stillborn: No (07/13/2016 18:42:Chinyere Stoll RN) History of : No (07/13/2016 18:42:Chinyere Stoll RN) History of D (Rh) Sensitization: No (07/13/2016 18:42:Chinyere Stoll RN) History Recurrent Loss/Stillborn: No (07/13/2016 18:42:Chinyere Stoll RN) History Depression/PP Depression: No (07/13/2016 18:42:Chinyere Stoll RN) History of Uterine Anomaly/LETI: No (07/13/2016 18:42:Chinyere Stoll RN) History of Infertility: No (07/13/2016 18:42:Chinyere Stoll RN) History of ART Treatment: No (07/13/2016 18:42:Chinyere Stoll RN) History of LETI: No (07/13/2016 18:42:Chinyere Stoll RN) Comments Obstetrical History: G1: current (07/13/2016 18:42:Chinyere Stoll RN) MEDICAL HISTORY Med Hx Diabetes: No (07/13/2016 18:42:Chinyere Stoll RN) Med Hx Hypertension: No (07/13/2016 18:42:Chinyere Stoll RN) Med Hx Heart Disease: No (07/13/2016 18:42:Chinyere Stoll RN) Med Hx Autoimmune Disorder: No (07/13/2016 18:42:Chinyere Stoll RN) Med Hx Kidney Disease/UTI: No (07/13/2016 18:42:Chinyere Stoll RN) Med Hx Neurologic/Epilepsy: No (07/13/2016 18:42:Chinyere Stoll RN) Med Hx Psychiatric Disorders: No (07/13/2016 18:42:Chinyere Stoll RN) Med Hx Hepatitis/Liver Disease: No (07/13/2016 18:42:Chinyere Stoll RN) Med Hx Varicosities/Phlebitis: No (07/13/2016 18:42:Chinyere Stoll RN) Med Hx Thyroid Dysfunction: No (07/13/2016 18:42:Chinyere Stoll RN) Med Hx Trauma/Violence: No (07/13/2016 18:42:Chinyere Stoll RN) Med Hx Blood Transfusion: No (07/13/2016 18:42:Chinyere Stoll RN) Med Hx Pulmonary (Asthma,TB): Yes (07/13/2016 18:42:Chinyere Stoll RN) Med Hx Breast: No (07/13/2016 18:42:Chinyere Stoll RN) Med Hx PICKER / PACKER Surgery: No (07/13/2016 18:42:Chinyere Stoll RN) Med Hx Hospitalization/Surgery: No (07/13/2016 18:42:Chinyere Stoll RN) Med Hx Anesthetic Complications: No (07/13/2016 18:42:Chinyere Stoll RN) Med Hx Abnormal Pap Smear: No (07/13/2016 18:42:Chinyere Stoll RN) Other Medical Diseases: No (07/13/2016 18:42:Chinyere Stoll RN) Med Hx Significant Family Hx: No (07/13/2016 18:42:Chinyere Stoll RN) Details of Med/Surg Hx: Asthma (Only has flare ups during respiratory illness) (07/13/2016 18:42:Shelton Lantigua RN) INFECTIOUS HISTORY Inf Hx Gonorrhea: No (07/13/2016 18:42:Chinyere Stoll RN) Inf Hx Chlamydia: No (07/13/2016 18:42:Chinyere Stoll RN) Inf Hx Syphilis: No (07/13/2016 18:42:Chinyere Stoll RN) Inf Hx HIV/AIDS: No (07/13/2016 18:42:Chinyere Stoll RN) Inf Hx Human Papilloma Virus: No (07/13/2016 18:42:Chinyere Stoll RN) Inf Hx Pt/Partner Genital Herpes: No (07/13/2016 18:42:Chinyere Stoll RN) Inf Hx Tuberculosis/Exposure: No (07/13/2016 18:42:Chinyere Stoll RN) Inf Hx Hepatitis B,C: No (07/13/2016 18:42:Chinyere Stoll RN) Inf Hx Rash or Viral Illness: No (07/13/2016 18:42:Chinyere Stoll RN) Details of Infectious Hx: BV: 03/02/16 (07/13/2016 18:42:Argenis Murillo RN) GENETIC HISTORY Gen Hx Age >=35 at EDY: No (07/13/2016 18:42:Chinyere Stoll RN) Gen Hx Thalassemia: No (07/13/2016 18:42:Chinyere Stoll RN) Gen Hx Congenital Heart Defect: No (07/13/2016 18:42:Chinyere Stoll RN) Gen Hx Neural Tube Defect: No (07/13/2016 18:42:Chinyere Stoll RN) Gen Hx Down's Syndrome: Yes (07/13/2016 18:42:Shelton Lantigua RN) Gen Hx Gonzalez-Sachs: No (07/13/2016 18:42:Chinyere Stoll RN) Gen Hx Yuval: No (07/13/2016 18:42:Chinyere Stoll RN) Gen Hx Familial Dysautonomia: No (07/13/2016 18:42:Chinyere Stoll RN) Gen Hx Sickle Cell Disease/Trait: No (07/13/2016 18:42:Chinyere Stoll RN) Gen Hx Hemophilia/Blood Disorder: No (07/13/2016 18:42:Chinyere Stoll RN) Gen Hx Muscular Dystrophy: No (07/13/2016 18:42:Chinyere Stoll RN) Gen Hx Cystic Fibrosis: No (07/13/2016 18:42:Chinyere Stoll RN) Gen Hx Huntingtons Chorea: No (07/13/2016 18:42:Chinyere Stoll RN) Gen Hx Mental Retardation/Autism: No (07/13/2016 18:42:Chinyere Stoll RN) Gen Hx Tested for Fragile X: No (07/13/2016 18:42:Chinyere Stoll RN) Gen Hx Other Inher/Chromosomal: No (07/13/2016 18:42:Chinyere Stoll RN) Gen Hx Maternal Metabolic DO: No (07/13/2016 18:42:Chinyere Stoll RN) Gen Hx Pt Father or FOB Defect: No (07/13/2016 18:42:Chinyere Stoll RN) Gen Hx Other Genetic History: No (07/13/2016 18:42:Chinyere Stoll RN) Gen Hx Drugs/Meds since LMP: No (07/13/2016 18:42:Chinyere Stoll RN) Details of Genetic History: FOB Aunt on Mothers Side has Down Syndrome. (07/13/2016 18:42:Shelton Lantigua RN)
--- NOTE | 2016-08-12 18:15 | L&D Care Plan ---
LD CARE PLANS Datetime Report Generated by CPN: 08/12/2016 18:15 Datetime: 08/10/2016 12:54 State: Risk For (Argenis Murillo RN) Related To: Treatment and Procedures (Argenis Murillo RN) Goal(s): Patients Pain will be Assessed and Managed; Patient will Verbalize Adequate Relief of Pain or the Ability to [place] with Current Pain (Argenis Murillo RN) Interventions: Assess Pain Severity on Scale of 0 (None) to 5 (Severe); Assess Type, Location and Intensity of Pain Each Time Client Reports Discomfort and Notify Provider if Unusal Pain Develops; Encourage Proper Breathing and Relaxation Techniques; Offer Alternatives Such as Repositioning, Calm Environment, Massages, Diversional Activities, Ice Pack, Splinting, and Ambulation; Administer Analgesics as Ordered; Assist with Epidural Placement as Appropriate; Evaluate Therapeutic Effectiveness of Medication and Treatments (Argenis Murillo RN) Outcome: Patient will Report Absence or Relief of Pain Consistent with Established Pain Goal (Argenis Murillo RN) Status: Ongoing (Argenis Murillo RN) Outcome: Patient will have a Decrease in Signs and Symptoms of Discomfort (Argenis Murillo RN) Status: Ongoing (Argenis Murillo RN) Outcome: Pain will be Controlled During Procedures (Argenis Murillo RN) Status: Ongoing (Argenis Murillo RN) State: Risk For (Argenis Murillo RN) Related To: Fear of Unknown; Situational Crisis; Medical Interventions; Significant Life Event (Argenis Murillo RN) Goal(s): Patient will have Decreased Anxiety and be able to Function at Acceptable Levels (Argenis Murillo RN) Interventions: Assess Verbal and Nonverbal Behavioral Indicators of Anxiety; Assist Patient to Identify and Verbalize Symptoms of Anxiety; Identify and Demonstrate Techniques to Control Anxiety; Assist Patient with Coping Mechanisms to Manage Anxiety; Provide Theraputic Touch for the Patient; Explain to Patient, Using a Calm Reassuring Approach and Nonmedical Terms, All Activities, Procedures, and Concerns; Instruct Patient and Family about Post Discharge Care, Limitations, Symptoms to Report and Resources Available (Argenis Murillo RN) Outcome: Patient will Identify, Verbalize and Demonstrate Techniques to Control Anxiety (Argenis Murillo RN) Status: Ongoing (Argenis Murillo RN) Outcome: Patient's Posture, Facial Expressions, Gestures and Activity Level will Reflect Decreased Anxiety (Argenis Murillo RN) Status: Ongoing (Argenis Murillo RN) Outcome: Patient will Verbalize a Sense of Control and/or Acceptance of the Situation (Argenis Murillo RN) Status: Ongoing (Argenis Murillo RN) Outcome: Patient will Identify and Utilize Support Person (Argenis Murillo RN) Status: Ongoing (Argenis Murillo RN) State: Risk For (Argenis Murillo RN) Related To: Labor and Delivery Process; Treatment and Procedures (Argenis Murillo RN) Goal(s): Patient will Accurately Verbalize Understanding of Plan of Care and Treatment; Patient and Family will Accurately Verbalize Understanding of the Disease Process (Argenis Murillo RN) Interventions: Assess Motivation and Willingness of Patient/Family to Learn; Assess Preferred Learning Mode: One to One Instruction, Reading, Videos, Group Discussion or Demonstration; Assess Barriers to Learning: Pain, Emotional State, Language Barrier, Cognitive Impairment, Visual or Hearing Deficits; Assess Patient and Family Knowledge of Disease Process, Medications and Treatment; Discuss Therapy and/or Treatment Options, Describe Rationale Behind Management, Therapy and Treatment Recommendations; Instruct Patient and Family on Signs and Symptoms to Report; Instruct Patient and Family on Medication Effects and Side Effects; Provide Appropriate and Timely Education Using Multiple Techniques; Provide Patient and Family with Support Group Information and Resources; Give Clear and Thorough Explanations and Demonstrations (Argenis Murillo RN) Outcome: Patient and Family will Verbalize Understanding of Condition, Treatment and Signs and Symptoms to Report (Argenis Murillo RN) Status: Ongoing (Argenis Murillo RN) Outcome: Patient will Identify Perceived Learning Needs and Express Motivation to Learn (Argenis Murillo RN) Status: Ongoing (Argenis Murillo RN) Outcome: Patient will Verbalize Understanding of Desired Content, and/or Performs Desired Skill Prior to Discharge (Argenis Murillo RN) Status: Ongoing (Argenis Murillo RN) State: Risk For (Argenis Murillo RN) Related To: Prolonged Labor or Induction (Argenis Murillo RN) Goal(s): The Patient will be Free of Infection, Vital Signs Stable and Lab Work within Normal Parameters (Argenis Murillo RN) Interventions: Instruct and Reinforce Proper Handwashing, Hygiene, and Care Techniques to Patient and Family; Monitor Vital Signs; Monitor Patient for the Following Signs of Infection: Fever, Abdominal Tenderness, Unusual Discharge; Monitor Aminiotic Fluid, Urine and Lochia for Color and Odor; Observe Wounds, Incisions and Invasive Line Sites for Redness, Drainage and Edema; Assess IV Sites per Hospital Policy; Monitor Lab and Test Results and Notify Provider of Abnormal Findings; Assess Nutritional Status and Promote Good Nutrition (Argenis Murillo RN) Outcome: Patient will Remain Free of Infection (Argenis Murillo RN) Status: Ongoing (Argenis Murillo RN) Outcome: Infection will be Recognized Early to Allow for Prompt Treatment (Argenis Murillo RN) Status: Ongoing (Argenis Murillo RN) Outcome: Patient will have Vital Signs Within Expected Range (Argenis Murillo RN) Status: Ongoing (Argenis Murillo RN) State: Risk For (Argenis Murillo RN) Related To: Gestational Hypertension; Altered Renal Function (Argenis Murillo RN) Goal(s): Patient will Achieve and Maintain a Balanced Fluid Volume Status; Hemodynamically Stable (Argenis Murillo RN) Interventions: Monitor Vital Signs; Auscultate Breath Sounds; Monitor Patient for Skin Turgor, Mucous Membranes, Dry Skin, Weakness, Headaches and Confusion; Provide Oral Fluids as Ordered; Initiate and Maintain Intravenous Fluids as Ordered; Monitor Intake and Output as Indicated Per Patient Status; Accurately Measure Blood Loss; Monitor Lab and Test Results as Obtained and Notify Provider of Abnormal Findings; Monitor Patient's Weight (Argenis Murillo RN) Outcome: Patient will have Clear Lung Sounds (Argenis Murillo RN) Status: Ongoing (Argenis Murillo RN) Outcome: Patient will have Vital Signs within Expected Range (Argenis Murillo RN) Status: Ongoing (Argenis Murillo RN) Outcome: Urine Output will be within Expected Range (Argenis Murillo RN) Status: Ongoing (Argenis Murillo RN) Outcome: Patient will have Minimal Generalized or Upper Extremity Edema (Argenis Murillo RN) Status: Ongoing (Argenis Murillo RN) State: Risk For (Argenis Murillo RN) Related To: Gestational Hypertension or Eclampsia (Argenis Murillo RN) Goal(s): Patient will Remain Free from Injury (Argenis Murillo RN) Interventions: Monitoring as per Hospital Protocol; Assess Neurological Status; Perform Risk Assessment of Patients with Induction and ; Perform Fall Risk Assessment and Prevention per Hospital Protocol; Perform DVT Risk Assessment and Prophylaxis per Hospital Protocol; Ensure that Oxygen, Suction, and Resuscitation Medications and Equipment are Readily Available; Confirm Patient ID Prior to Procedure(s) and Medication Administration per Hospital Policy (Argenis Murillo RN) Outcome: Successful Fall Risk Prevention (Argenis Murillo RN) Status: Ongoing (Argenis Murillo RN) Outcome: Patient will Deliver Infant without Adverse [place]ela (Argenis Murillo RN) Status: Ongoing (Argenis Murillo RN) Outcome: Patient's Neurological Status will Remain Stable (Argenis Murillo RN) Status: Ongoing (Argenis Murillo RN) State: Risk For (Argenis Murillo RN) Related To: Prolonged Bedrest (Argenis Murillo RN) Goal(s): Patient will Maintain Optimal Skin Integrity, Free of Breakdown, Injury or Infection (Argenis Murillo RN) Interventions: Complete Screening for Pressure Ulcer Risk and Initiate Protocol per Hospital Policy; Monitor Site of Skin Impairment for Color Changes, Redness, Swelling, Warmth, Pain or Other Signs of Infection; Encourage and Assist with Position Changes; Monitor Patient's Mobility Status; Provide Adequate Nutrition and Fluids; Teach Patient Appropriate Hygienic Care; Teach Patient/Family Skin Care Management (Argenis Murillo RN) Outcome: Patient will not have Evidence of Injury Such as Skin Breakdown, Scrapes, Cuts, or Bruising (Argenis Murillo RN) Status: Ongoing (Argenis Murillo RN) Outcome: Patient will Report Any Altered Sensation or Pain at Site of Skin Impairment (Argenis Murillo RN) Status: Ongoing (Argenis Murillo RN) Outcome: Patients Incisions and Wounds will be without Signs or Symptoms of Infection (Argenis Murillo RN) Status: Ongoing (Argenis Murillo, RN) Outcome: Patient will Demonstrate Understanding of Plan to Heal Skin and Prevent Reinjury and Verbalize Risk Factors (Argenis Murillo RN) Status: Ongoing (Argenis Murillo RN) State: Not Applicable (Argenis Murillo RN) State: Not Applicable (Argenis Murillo RN) State: Not Applicable (Argenis Murillo RN) State: Not Applicable (Argenis Murillo RN)
[2016-08-12] MEDS: OXYCODONE HCL IR 5 MG TABLET PO PRN (21:40)
[2016-08-12] MEDS: ZOLPIDEM TARTRATE 5 MG TABLET PO SCH (23:13)
[2016-08-13] MEDS: OXYCODONE HCL IR 5 MG TABLET PO PRN ×5 (03:20→23:20)
--- NOTE | 2016-08-13 06:00 | L&D General Admission ---
General Admit Datetime Report Generated by CPN: 08/13/2016 06:00 INFORMATION Patient Age: 25 (06/25/2016 13:50:QS system process) EDC: 09/03/2016 00:00 (07/13/2016 18:42:Pamela Begum RN) : 1 (07/13/2016 18:42:Pamela Begum RN) Para: 0 (07/13/2016 20:30:June Esparza RN) Term: 0 (07/13/2016 18:42:Pamela Begum RN) : 0 (07/13/2016 18:42:Pamela Begum RN) Spontaneous Abortions: 0 (07/13/2016 18:42:Pamela Begum RN) Induced Abortions: 0 (07/13/2016 18:42:Pamela Begum RN) Livin (07/13/2016 18:42:Pamela Begum RN) Cesareans: 0 (07/13/2016 18:42:Pamela Begum RN) VBACs: 0 (07/13/2016 18:42:Pamela Begum RN) Ectopic: 0 (07/13/2016 18:42:Pamela Begum RN) Multiple Births: 0 (07/13/2016 18:42:Pamela Begum RN) Baby, Number in Womb: 1 (07/13/2016 20:30:June Esparza RN) CARE Primary Database Modeler: [facility] (07/13/2016 18:42:Pamela Begum RN) Month of 1st Visit: December (07/13/2016 18:42:EDILIA Bonilla) Adequate Care: Yes (07/13/2016 18:42:Pamela Begum RN) Prepregnancy Weight (lb): 200 (07/13/2016 18:42:EDILIA Bonilla) Prepregnancy Weight (kg): 90.9 (07/13/2016 18:42:QS system process) Height (in): 65 (08/10/2016 10:11:QS system process) ALLERGIES Medication Allergy: Yes (07/13/2016 18:42:Pamela Begum RN) Medication Allergies: cefuroxime axetil (08/10/2016); ciprofloxacin HCl (08/10/2016); ciprofloxacin (08/10/2016); amoxicillin (08/10/2016) (08/10/2016 10:09:QS system process) Latex Allergy: No Latex Allergies (07/13/2016 18:42:Pamela Begum RN) Food Allergies: denies (07/13/2016 18:42:Chinyere Stoll RN) Environmental Allergies: denies (07/13/2016 18:42:Chinyere Stoll RN) COMMUNICATION Primary Language: Honduran (07/13/2016 18:42:Pamela Begum RN) Medical Tx Preferred Language: Honduran (07/13/2016 18:42:Pamela Begum RN) Communication Barrier(s): None (07/13/2016 18:42:Pamela Begum RN) DEMOGRAPHICS Address: [address] [place] [id number] (06/25/2016 13:50:QS system process) Zipcode: [address] (06/25/2016 13:50:QS system process) Home (06/25/2016 13:50:QS system process) Work (06/25/2016 13:50:QS system process) SSN: [id number] (06/25/2016 13:50:QS system process) Next of Kin Name: CAROLINE GRANT (06/25/2016 13:50:QS system process) Next of Kin (06/25/2016 13:50:QS system process) Next of Kin Relationship: MO (06/25/2016 13:50:QS system process) Date of : 1990 (06/25/2016 13:50:QS system process) Marital Status: Single (06/25/2016 13:50:QS system process) Sex: Female (06/25/2016 13:50:QS system process) Race: (06/25/2016 13:50:QS system process) Ethnicity: Non- or (06/25/2016 13:50:QS system process) Muslim: Mosque (06/25/2016 13:50:QS system process) DRUG AND ALCOHOL USE Alcohol: No (07/13/2016 18:42:Chinyere Stoll RN) Cigarettes: Former Smoker. 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: [facility] (07/13/2016 18:42:Chinyere Stoll RN) Feeding Preference: Breast (07/13/2016 18:42:Chinyere Stoll RN) Benefit of Breast Feed Discussed: Yes (07/13/2016 18:42:Chinyere Stoll RN) Circumcision: N/A (07/13/2016 18:42:Chinyere Stoll RN) Classes Attended: No (07/13/2016 18:42:Chinyere Stoll RN) Tubal Ligation: No (07/13/2016 18:42:Chinyere Stoll RN) Tubal Authorization Signed: N/A (07/13/2016 18:42:Chinyere Stoll RN) Consent: N/A (07/13/2016 18:42:Chinyere Stoll RN) Consent Signed: N/A (07/13/2016 18:42:Chinyere Stoll RN) Pain Management Plans: Epidural (07/13/2016 18:42:Chinyere Stoll RN) Plans for Labor and Delivery: None (07/13/2016 18:42:Chinyere Stoll RN) Support Person: Dionicio Monroy (07/13/2016 18:42:Chinyere Stoll RN) Support Person Relationship: Significant Other (07/13/2016 18:42:Chinyere Stoll RN) Cultural/Spritual Practice: No (07/13/2016 18:42:Chinyere Stoll RN) Spir/Cult Dietary Needs: No (07/13/2016 18:42:Chinyere Stoll RN) LIVING SITUATION/DISCHARGE PLAN Living Arrangements: House (07/13/2016 18:42:Chinyere Stoll RN) Adequate Access to:: Electric; Heat; Refrigeration; Plumbing/Running water; Phone; Transportation (07/13/2016 18:42:Chinyere Stoll RN) WIC Program: Yes (07/13/2016 18:42:Chinyere Stoll RN) Discharge Civil Designer Person: Dionicio Monroy (07/13/2016 18:42:Chinyere Stoll RN) Person to Help after Discharge: Dionicio Monroy (07/13/2016 18:42:Chinyere Stoll RN) Currently Using Commun Resources: Yes (07/13/2016 18:42:Chinyere Stoll RN) Outside Agency/Long Chain Dyeing Machine Operator: No (07/13/2016 18:42:Chinyere Stoll RN) Car Seat for Discharge: Yes (07/13/2016 18:42:Chinyere Stoll RN) Adoption Requested: No (07/13/2016 18:42:Chinyere Stoll RN) Pt Contact w/ Post : N/A (07/13/2016 18:42:Chinyere Stoll RN) LABS Blood Type: B Positive (07/13/2016 18:42:Argenis Murillo RN) Antibody Screen: negative (07/13/2016 18:42:Argenis Murillo RN) Hemoglobin: 10.3 L (08/12/2016 06:35:QS system process) Hematocrit: 30.1 L (08/12/2016 06:35:QS system process) MCV: 87 (08/12/2016 06:35:QS system process) Group Beta Strep: UNKNOWN (07/13/2016 18:42:Pamela Begum RN) Gonorrhea: Negative (07/13/2016 18:42:Joy Nieto RN) Chlamydia: Negative (07/13/2016 18:42:Argenis Murillo RN) RPR/VDRL: Nonreactive (07/13/2016 18:42:Argenis Murillo RN) HIV Exposure Test: Negative (07/13/2016 18:42:Argenis Murillo RN) Hepatitis B: Negative (07/13/2016 18:42:Argenis Murillo RN) Rubella: Immune (07/13/2016 18:42:Argenis Murillo RN) Varicella: Non Susceptible (07/13/2016 18:42:Argenis Murillo RN) OB/PREVIOUS HISTORY Previous Procedures: None (07/13/2016 18:42:June Esparza RN) Current Procedures: Ultrasound; NST (07/13/2016 18:42:Chinyere Stoll RN) History of Previous : No (07/13/2016 18:42:Chinyere Stoll RN) History of Gestational Diabetes: No (07/13/2016 18:42:Chinyere Stoll RN) History of PIH: No (07/13/2016 18:42:Chinyere Stoll RN) History of Incompetent Cervix: No (07/13/2016 18:42:Chinyere Stoll RN) History of Placenta Previa/Abrup: No (07/13/2016 18:42:Chinyere Stoll RN) History of Macrosomia: No (07/13/2016 18:42:Chinyere Stoll RN) History of IUGR: No (07/13/2016 18:42:Chinyere Stoll RN) History of Hemorrhage: No (07/13/2016 18:42:Chinyere Stoll RN) History of Loss/Stillborn: No (07/13/2016 18:42:Chinyere Stoll RN) History of : No (07/13/2016 18:42:Chinyere Stoll RN) History of D (Rh) Sensitization: No (07/13/2016 18:42:Chinyere Stoll RN) History Recurrent Loss/Stillborn: No (07/13/2016 18:42:Chinyere Stoll RN) History Depression/PP Depression: No (07/13/2016 18:42:Chinyere Stoll RN) History of Uterine Anomaly/LETI: No (07/13/2016 18:42:Chinyere Stoll RN) History of Infertility: No (07/13/2016 18:42:Chinyere Stoll RN) History of ART Treatment: No (07/13/2016 18:42:Chinyere Stoll RN) History of LETI: No (07/13/2016 18:42:Chinyere Stoll RN) Comments Obstetrical History: G1: current (07/13/2016 18:42:Chinyere Stoll RN) MEDICAL HISTORY Med Hx Diabetes: No (07/13/2016 18:42:Chinyere Stoll RN) Med Hx Hypertension: No (07/13/2016 18:42:Chinyere Stoll RN) Med Hx Heart Disease: No (07/13/2016 18:42:Chinyere Stoll RN) Med Hx Autoimmune Disorder: No (07/13/2016 18:42:Chinyere Stoll RN) Med Hx Kidney Disease/UTI: No (07/13/2016 18:42:Chinyere Sotll RN) Med Hx Neurologic/Epilepsy: No (07/13/2016 18:42:Chinyere Stoll RN) Med Hx Psychiatric Disorders: No (07/13/2016 18:42:Chinyere Stoll RN) Med Hx Hepatitis/Liver Disease: No (07/13/2016 18:42:Chinyere Stoll RN) Med Hx Varicosities/Phlebitis: No (07/13/2016 18:42:Chinyere Stoll RN) Med Hx Thyroid Dysfunction: No (07/13/2016 18:42:Chinyere Stoll RN) Med Hx Trauma/Violence: No (07/13/2016 18:42:Chinyere Stoll RN) Med Hx Blood Transfusion: No (07/13/2016 18:42:Chinyere Stoll RN) Med Hx Pulmonary (Asthma,TB): Yes (07/13/2016 18:42:Chinyere Stoll RN) Med Hx Breast: No (07/13/2016 18:42:Chinyere Stoll RN) Med Hx 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: No (07/13/2016 18:42:Chinyere Stoll RN) Med Hx Hospitalization/Surgery: No (07/13/2016 18:42:Chinyere Stoll RN) Med Hx Anesthetic Complications: No (07/13/2016 18:42:Chinyere Stoll RN) Med Hx Abnormal Pap Smear: No (07/13/2016 18:42:Chinyere Stoll RN) Other Medical Diseases: No (07/13/2016 18:42:Chinyere Stoll RN) Med Hx Significant Family Hx: No (07/13/2016 18:42:Chinyere Stoll RN) Details of Med/Surg Hx: Asthma (Only has flare ups during respiratory illness) (07/13/2016 18:42:Shelton Lantigua RN) INFECTIOUS HISTORY Inf Hx Gonorrhea: No (07/13/2016 18:42:Chinyere Stoll RN) Inf Hx Chlamydia: No (07/13/2016 18:42:Chinyere Stoll RN) Inf Hx Syphilis: No (07/13/2016 18:42:Chinyere Stoll RN) Inf Hx HIV/AIDS: No (07/13/2016 18:42:Chinyere Stoll RN) Inf Hx Human Papilloma Virus: No (07/13/2016 18:42:Chinyere Stoll RN) Inf Hx Pt/Partner Genital Herpes: No (07/13/2016 18:42:Chinyere Stoll RN) Inf Hx Tuberculosis/Exposure: No (07/13/2016 18:42:Chinyere Stoll RN) Inf Hx Hepatitis B,C: No (07/13/2016 18:42:Chinyere Stoll RN) Inf Hx Rash or Viral Illness: No (07/13/2016 18:42:Chinyere Stoll RN) Details of Infectious Hx: BV: 03/02/16 (07/13/2016 18:42:Argenis Murillo RN) GENETIC HISTORY Gen Hx Age >=35 at EDY: No (07/13/2016 18:42:Chinyere Stoll RN) Gen Hx Thalassemia: No (07/13/2016 18:42:Chinyere Stoll RN) Gen Hx Congenital Heart Defect: No (07/13/2016 18:42:Chinyere Stoll RN) Gen Hx Neural Tube Defect: No (07/13/2016 18:42:Chinyere Stoll RN) Gen Hx Down's Syndrome: Yes (07/13/2016 18:42:Shelton Lantigua RN) Gen Hx Gonzalez-Sachs: No (07/13/2016 18:42:Chinyere Stoll RN) Gen Hx Yuval: No (07/13/2016 18:42:Chinyere Stoll RN) Gen Hx Familial Dysautonomia: No (07/13/2016 18:42:Chinyere Stoll RN) Gen Hx Sickle Cell Disease/Trait: No (07/13/2016 18:42:Chinyere Stoll RN) Gen Hx Hemophilia/Blood Disorder: No (07/13/2016 18:42:Chinyere Stoll RN) Gen Hx Muscular Dystrophy: No (07/13/2016 18:42:Chinyere Stoll RN) Gen Hx Cystic Fibrosis: No (07/13/2016 18:42:Chinyere Stoll RN) Gen Hx Huntingtons Chorea: No (07/13/2016 18:42:Chinyere Stoll RN) Gen Hx Mental Retardation/Autism: No (07/13/2016 18:42:Chinyere Stoll RN) Gen Hx Tested for Fragile X: No (07/13/2016 18:42:Chinyere Stoll RN) Gen Hx Other Inher/Chromosomal: No (07/13/2016 18:42:Chinyere Stoll RN) Gen Hx Maternal Metabolic DO: No (07/13/2016 18:42:Chinyeer Stoll RN) Gen Hx Pt Father or FOB Defect: No (07/13/2016 18:42:Chinyere Stoll RN) Gen Hx Other Genetic History: No (07/13/2016 18:42:Chinyere Stoll RN) Gen Hx Drugs/Meds since LMP: No (07/13/2016 18:42:Chinyere Stoll RN) Details of Genetic History: FOB Aunt on Mothers Side has Down Syndrome. (07/13/2016 18:42:Shelton Lantigua RN)
--- NOTE | 2016-08-13 06:00 | L&D Current Admission ---
Current Admit Datetime Report Generated by CPN: 08/13/2016 06:00 ADMISSION INFORMATION Current Admit Date/Time: 08/10/2016 12:49 (08/10/2016 10:22:Argenis Murillo RN) Reason for Admission: Observation (08/10/2016 10:22:Argenis Murillo RN) Chief Complaint: Went into [facility] this morning, failed NST and had protein in urine and high blood pressures in the office. Dr. Rashid sent her over for eval. (08/10/2016 22:30:Shelton Lantigua RN) Medications During : Albuterol MDI; Methyldopa (Aldomet); Vitamin; Rantidine (Zantac) (08/10/2016 10:22:Argenis Murillo RN) Meds During -Oth: Zyrtec, TUMS (08/10/2016 10:22:Argenis Murillo RN) EGA per Dates: 36.4 (08/10/2016 10:22:QS system process) Method of Arrival: Ambulatory (08/10/2016 10:22:Argenis Murillo RN) Admitted From: Home (08/10/2016 10:22:Argenis Murillo RN) Reason for Induction- Other: 23 hour observation for GHTN (08/10/2016 10:22:Argenis Murillo RN) Records Available: Yes (08/10/2016 10:22:Argenis Murillo RN) General Admission Information: Reviewed (08/10/2016 10:22:Argenis Murillo RN) General Admission Reviewed By: Yadi Murillo RN (08/10/2016 10:22:Argenis Murillo RN) BELONGINGS/ADVANCED DIRECTIVES Valuables/Personal Effects: None (08/10/2016 10:22:Argenis Murillo RN) Other Belongings: see consents (08/10/2016 10:22:Argenis Murillo RN) Disposition of Belongings: Sent Home (08/10/2016 10:22:Argenis Murillo RN) Advance Direct for Healthcare: No, and Wants No Information (08/10/2016 10:22:Argenis Murillo RN) Durable Power of Operations Controller: No (08/10/2016 10:22:Argenis Murillo RN) Living Will: No (08/10/2016 10:22:Argenis Murillo RN) Organ Donor: Yes (08/10/2016 10:22:Argenis Murillo RN) Pt Rights Information Given: Yes (08/10/2016 10:22:Argenis Murillo RN) Pt Understands Pt Rights: Yes (08/10/2016 10:22:Argenis Murillo RN) LEARNING ASSESSMENT Knowledge Level: Understands L_D Process; Understands Care Activities; Had Pre-Hospital Education; Understands Diagnosis (08/10/2016 10:22:Argenis Murillo RN) Barriers to Learning: None (08/10/2016 10:22:Argenis Murillo RN) Learning Readiness: Motivated (08/10/2016 10:22:Argenis Murillo RN) Learns Best By: 1 to 1 Instruction (08/10/2016 10:22:Argenis Murillo RN) Learning Needs: Labor and Delivery Process (08/10/2016 10:22:Argenis Murillo RN) DOMESTIC VIOLANCE SCREENING Dom Viol Threatened/Hurt: No (08/10/2016 10:22:Argenis Murlilo RN) Hx of Abuse/Neglect past 2yrs: No (08/10/2016 10:22:Argenis Murillo RN) Feel Unsafe Going Home: No (08/10/2016 10:22:Argenis Murillo RN) Addt'l Observ Indicating Abuse: No (08/10/2016 10:22:Argenis Murillo RN) Reason Unable to Complete Screen: N/A, Screen Completed (08/10/2016 10:22:Argenis Murillo RN) Considered Personal Harm/Suicide: No (08/10/2016 10:22:Argenis Murillo RN) NUTRITIONAL/FUNCTIONAL SCREENING Problem with Appetite >5 Days: No (08/10/2016 10:22:Argenis Murillo RN) Chew/Swallow Difficulties: No (08/10/2016 10:22:Argenis Murillo RN) Inappropriate Wt Gain/Loss: No (08/10/2016 10:22:Argenis Murillo RN) Presence Skin Breakdown/Ulcer: No (08/10/2016 10:22:Argenis Murillo RN) Special Diet: No (08/10/2016 10:22:Argenis Murillo RN) Pt Requests Building Operator Visit: No (08/10/2016 10:22:Argenis Murillo RN) Hx of Any of the Following?: N/A (08/10/2016 10:22:Argenis Murillo RN) New Diagnosis of: Gestational Hypertension (08/10/2016 10:22:Argenis Murillo RN) Requires Assist w/Ambulation: No (08/10/2016 10:22:Argenis Murillo RN) Uses Assist Device to Ambulate: No (08/10/2016 10:22:Argenis Murillo RN) Pt Requires Help w/ADL's: No (08/10/2016 10:22:Argenis Murillo RN)
[2016-08-13] MEDS: IBUPROFEN 800 MG TABLET PO SCH ×3 (06:26→17:41)
[2016-08-13] MEDS: PRENATAL VITAMIN W-O CA NO5/FE FUMARATE/FA CAPSULE PO SCH (09:45)
[2016-08-13] MEDS: DOCUSATE SODIUM 100 MG CAPSULE PO SCH ×2 (09:45→17:40)
--- NOTE | 2016-08-13 10:28 | PDOC PROGRESS REPORT ---
Subjective-OB Subjective: Post Delivery Day: 2 25 year old. Denies any needs at this time, denies headache, visual disturbances, and epigastric pain, ambulating well, passing gas tolerating diet , pain well controlled. Physical Exam (OB) Vital Signs: Temp Pulse Resp BP Pulse Ox 98.0 F 94 18 166/92 H 100 08/13/16 08:49 08/13/16 08:49 08/13/16 08:49 08/13/16 08:49 08/13/16 08:49 Intake & Output 08/12/16 08/13/16 08/14/16 06:59 06:59 06:59 Intake Total 1880 Output Total 1400 1950 Balance 480 -1950 - PIH/Pre-Eclampsia Clonus: Negative Headache: Absent Epigastric Pain: No Visual Changes: No - Dressing Removed: Yes Incision: Dressing Closure Type: Sutures - Lochia Lochia Amount: Small 10-25 ml Lochia Color: Serosa/Brown - Abdomen Description: Tender, Soft, Round Hernia Present: No Fundal Description: Firm Fundal Height: u/u - u/2 Objective-Diagnostic Laboratory: 08/12/16 06:35 08/11/16 07:22 Assessment and Plan(PN) - Assessment and Plan (1) Delivery by emergency caesarean section Is this a current diagnosis for this admission?: YesPlan: routine post op care anticipate d/c home tomorrow (2) Gestational hypertension Qualifiers: Trimester: third trimester Qualified Code(s): O13.3 - Gestational [ -induced] hypertension without significant proteinuria, third trimester Is this a current diagnosis for this admission?: YesPlan: monitor bp continue antihypertensives report nicolas, vis dist, epigastric pain (3) THC use in Is this a current diagnosis for this admission?: YesPlan: d/c digital media planner - Time Spent with Patient Time with patient: Less than 15 minutes Critical Time spent with patient: Less than 15 minutes Medications reviewed and adjusted accordingly: Yes - Disposition Anticipated Discharge: Home Within: within 24 hours
[2016-08-13] MEDS: NIFEDIPINE 30 MG TAB.ER.24 PO SCH (14:00)
[2016-08-13] MEDS: ZOLPIDEM TARTRATE 5 MG TABLET PO SCH (22:04)
[2016-08-14] MEDS: IBUPROFEN 800 MG TABLET PO SCH ×2 (00:03→06:01)
[2016-08-14] MEDS: OXYCODONE HCL IR 5 MG TABLET PO PRN ×2 (03:20→08:23)
--- NOTE | 2016-08-14 08:19 | PDOC DISCHARGE SUMMARY ---
Final Diagnosis Discharge Date: 08/14/16 - Final Diagnosis (1) Delivery by emergency caesarean section Is this a current diagnosis for this admission?: Yes (2) Gestational hypertension Is this a current diagnosis for this admission?: Yes (3) THC use in Is this a current diagnosis for this admission?: Yes Discharge Data - Discharge Medication Home Medications: Calcium Carbonate [Tums Chewable 500 mg Tab.chew] 2 tab PO Q4 PRN 07/13/16 Cetirizine HCl [Zyrtec 10 mg Tablet] 1 tab PO DAILY PRN 07/13/16 [id number]/FA/Omega3/Dha/Fish Oil [ Gummies] 2 tab PO DAILY 07/13/16 Ranitidine HCl [Zantac 150 mg Tablet] 1 tab PO BID 07/13/16 Docusate Sodium [Colace 100 mg Capsule] 100 mg PO BID #60 capsule 08/14/16 Ibuprofen [Motrin 800 mg Tablet] 800 mg PO Q6 #60 tablet 08/14/16 Nifedipine [Procardia XL 30 mg Tablet] 30 mg PO DAILY@1500 #30 tab.er.24 Oxycodone HCl [Oxy-Ir 5 mg Tablet] 10 mg PO Q4HP PRN #30 tablet 08/14/16 Gestational Age: 36.5 Reason(s) for Admission: Status, PIH Admission Note: gbs unk. Procedures: NST Intrapartum Procedure(s): : Low Cervical, Transverse - Data Baby 1 Female at 1 minute: 8 at 5 minutes: 9 Weight: 2640 kg Home with Mother: Yes Complications: Yes - , nrfht - Diagnosis Test Laboratory: Temp Pulse Resp BP Pulse Ox 98.0 F 105 H 18 139/81 H 100 08/14/16 04:24 08/14/16 04:24 08/14/16 04:24 08/14/16 04:24 08/14/16 04:24 08/10/16 08/10/16 08/10/16 10:15 10:38 21:00 RBC 4.26 4.32 Hgb 12.7 12.7 Hct 36.5 37.1 Urine Opiates Screen NEGATIVE 08/11/16 08/12/16 07:22 06:35 RBC 4.19 3.47 L Hgb 12.5 10.3 L D Hct 36.1 30.1 L Urine Opiates Screen - Discharge information/Instructions Discharge Activity: Activity As Tolerated, No Driving, No Lifting Over 10 Pounds , No Lifting/Push/Pulling, Pelvic Rest, No tub bath Discharge Diet: Regular Disposition: HOME, SELF-CARE Follow [facility] in: 1, Weeks
[2016-08-14 08:49] VITALS: BP 146/85
[2016-08-14] MEDS: DOCUSATE SODIUM 100 MG CAPSULE PO SCH (09:14)
[2016-08-14] MEDS: PRENATAL VITAMIN W-O CA NO5/FE FUMARATE/FA CAPSULE PO SCH (09:14)
== END 2016-08-14 11:45 | disposition home or self-care (01) | DRG 765 ==
LOC: LC 09:59 → LR 12:07 → OBSVTOIN 12:07 → 2N 15:20 → LR 22:10 → 2N 08-11 23:09 → 2S 08-13 17:51
PROVIDERS: ADMIT Obstetrics & Gynecology; ATTEND Obstetrics & Gynecology
PROC: 4A1H7CZ Monitoring of Products of Conception, Cardiac Rate, Via Natural or Artificial Opening (ICD-10-PCS; 2016-08-10)
PROC: 10D00Z1 Extraction of Products of Conception, Low, Open Approach (ICD-10-PCS; principal; 2016-08-11)
PROC: 10907ZC Drainage of Amniotic Fluid, Therapeutic from Products of Conception, Via Natural or Artificial Opening (ICD-10-PCS; 2016-08-11)
PROC: 3E0P7GC Introduction of Other Therapeutic Substance into Female Reproductive, Via Natural or Artificial Opening (ICD-10-PCS; 2016-08-11)
PROC: 10H07YZ Insertion of Other Device into Products of Conception, Via Natural or Artificial Opening (ICD-10-PCS; 2016-08-11)
DX: O76 Abnormality in fetal heart rate and rhythm complicating labor and delivery (principal); O99.324 Drug use complicating childbirth; O62.2 Other uterine inertia; O14.94 Unspecified pre-eclampsia, complicating childbirth; Z3A.36 36 weeks gestation of pregnancy; Z37.0 Single live birth; O99.214 Obesity complicating childbirth; E66.9 Obesity, unspecified; Z68.37 Body mass index [BMI] 37.0-37.9, adult
CPT/HCPCS: 1961; 36415; 59025; 80053; 80307; 81001; 82570; 83615; 84156; 84550; 85025; 85027; 86592; 86850; 86900; 86901; 94799; J0131; J1580; J1885; J2175; J2250; J2270; J2405; J2590; J3010; J3490; J7120

== ENCOUNTER 2017-01-25 05:02 | Emergency (ER) | payer MEDICAID ==
[2017-01-25] MEDS ORDERED: ONDANSETRON HCL INJ/PF 4 MG/2 ML SDV IV ONE (05:33)
[2017-01-25] MEDS ORDERED: NORMAL SALINE 1000 ML 1,000 ML IV ONE (05:33)
[2017-01-25] MEDS ORDERED: MAG HYDROX/AL HYDROX/SIMETH SUSP 30 ML UDCUP PO ONE (05:33)
[2017-01-25] MEDS ORDERED: LIDOCAINE 2% VISCOUS SOLN 20 ML UDCUP PO ONE (05:33)
--- NOTE | 2017-01-25 05:34 | ER Document Report ---
ED GI/ - General Mode of Arrival: Ambulatory Information source: Patient TRAVEL OUTSIDE OF THE U.S. IN LAST 30 DAYS: No - HPI Patient complains to provider of: Abdominal pain Onset: Other - Off and on 5 months Timing/Duration: Waxing and waning Quality of pain: Sharp Pain Level: 5 Location: Epigastric Vaginal bleeding (Compared to normal period): None Associated symptoms: Diarrhea, Nausea, Vomiting. denies: Dysuria, Fever, Urinary hesitancy, Urinary frequency, Urinary retention, Vaginal discharge Exacerbated by: Food Relieved by: Denies Similar symptoms previously: Yes Recently seen / treated by doctor: No <DELICIA PIMENTEL - Last Filed: 01/25/17 07:14> <DARI WAITE - Last Filed: 01/25/17 08:38> - General Chief Complaint: Abdominal Pain Stated Complaint: ABDOMINAL PAIN Time Seen by Provider: 01/25/17 05:22 Notes: Patient reports a 5 month history of intermittent epigastric pain that will radiate through to her back. Patient is concerned that she has gallstones and needs her gallbladder taken out. Patient reports nausea, vomiting and diarrhea since yesterday. Patient states she is vomited about 6 times today and had diarrhea only yesterday. Patient denies any urinary symptoms. (DELICIA PIMENTEL) - Related Data Allergies/Adverse Reactions: amoxicillin [Amoxicillin] Allergy (Verified 01/25/17 05:05) cefuroxime axetil [From Ceftin] Allergy (Verified 01/25/17 05:05) ciprofloxacin [From Cipro] Allergy (Verified 01/25/17 05:05) ciprofloxacin HCl [From Cipro] Allergy (Verified 01/25/17 05:05) Past Medical History - General Information source: Patient - Social History Smoking Status: Current Every Day Smoker Chew tobacco use (# tins/day): Yes Frequency of alcohol use: None Drug Abuse: None Occupation: None Lives with: Family Family History: Reviewed & Not Pertinent Patient has suicidal ideation: No Patient has homicidal ideation: No - Past Medical History Cardiac Medical History: Reports: Hx Hypertension Pulmonary Medical History: Reports: Hx Pneumonia Renal/ Medical History: Denies: Hx Peritoneal Dialysis GI Medical History: Reports: Hx Gastroesophageal Reflux Disease Musculoskeltal Medical History: Comment Only Hx Arthritis - Reactive airway disease Psychiatric Medical History: Reports: Hx Depression Past Surgical History: Reports: Hx Section - Immunizations Immunizations up to date: Yes Hx Diphtheria, Pertussis, Tetanus Vaccination: Yes <DELICIA PIMENTEL - Last Filed: 01/25/17 07:14> Review of Systems - Review of Systems Constitutional: No symptoms reported. denies: Fever, Recent illness EENT: No symptoms reported Cardiovascular: No symptoms reported Respiratory: No symptoms reported. denies: Short of breath Gastrointestinal: Abdominal pain, Diarrhea, Nausea, Vomiting Genitourinary: No symptoms reported. denies: Dysuria, Flank pain Female Genitourinary: No symptoms reported Musculoskeletal: Back pain - Abdominal pain radiates through to her back Skin: No symptoms reported Hematologic/Lymphatic: No symptoms reported Neurological/Psychological: No symptoms reported <DELICIA PIMENTEL - Last Filed: 01/25/17 07:14> Physical Exam - General General appearance: Appears well, Alert In distress: None - HEENT Head: Normocephalic, Atraumatic Eyes: Normal Nasal: Normal Mouth/Lips: Normal Mucous membranes: Normal Neck: Normal, Supple. No: Lymphadenopathy - Respiratory Respiratory status: No respiratory distress Chest status: Nontender Breath sounds: Normal. No: Rales, Rhonchi, Stridor, Wheezing Chest palpation: Normal - Cardiovascular Rhythm: Regular Heart sounds: S1 appreciated, S2 appreciated Murmur: No - Abdominal Inspection: Obese Distension: No distension Bowel sounds: Normal Tenderness: Tender - epig, RUQ Organomegaly: No organomegaly - Back Back: Normal. No: CVA tenderness, Vertebra tenderness - Extremities General upper extremity: Normal inspection, Normal ROM General lower extremity: Normal inspection, Normal ROM - Neurological Neuro grossly intact: Yes Cognition: Normal Emilie Coma Scale Eye Opening: Spontaneous Emilie Coma Scale Verbal: Oriented [place] Coma Scale Motor: Obeys Commands Emilie Coma Scale Total: 15 - Psychological Associated symptoms: Normal affect, Normal mood - Skin Skin Temperature: Warm Skin Moisture: Dry Skin Color: Normal <DELICIA PIMENTEL - Last Filed: 01/25/17 07:14> - Vital signs Vitals: Temp Pulse Resp BP Pulse Ox 98.4 F 100 22 H 153/117 H 99 01/25/17 05:05 01/25/17 05:05 01/25/17 05:05 01/25/17 05:05 01/25/17 05:05 Course - Laboratory Result Diagrams: 01/25/17 05:21 01/25/17 05:21 <DELICIA PIMENTEL - Last Filed: 01/25/17 07:14> - Laboratory Result Diagrams: 01/25/17 05:21 01/25/17 05:21 - Diagnostic Test Radiology reviewed: Image reviewed, Reports reviewed <DARI WAITE - Last Filed: 01/25/17 08:38> - Re-evaluation Re-evalutation: 01/25/17 06:45 The patient has been informed that they may have pre-hypertension or hypertension based on a blood pressure reading in the emergency department. I recommend that patient call the primary care provider listed on their discharge instructions or a physician of their choice by this week to arrange follow-up for further evaluation of possible pre-hypertension or hypertension. 01/25/17 07:14 Bedside report and handoff given to Dari TIERNEY (DELICIA PIMENTEL) 01/25/17 08:31 Patient is a 26-year-old female who is medically stable, no acute distress and afebrile. No evidence of leukocytosis or anemia. No evidence of electrolyte abnormalities or hepatic, pancreatic, renal dysfunction. Right upper quadrant ultrasound shows cholelithiasis without any cholecystitis. No evidence of common bile duct stone. Patient tolerating p.o. without any difficulty. Will discharge home with pain and nausea medication instruction to follow-up with outpatient surgery. (DARI WAITE) - Vital Signs Vital signs: Temp Pulse Resp BP Pulse Ox 98.4 F 100 22 H 153/117 H 99 01/25/17 05:05 01/25/17 05:05 01/25/17 05:05 01/25/17 05:05 01/25/17 05:05 - Laboratory Laboratory results interpreted by me: 01/25/17 01/25/17 01/25/17 05:21 05:21 05:21 RDW 14.9 H Glucose 111 H AST 44 H Urine Blood MODERATE H Discharge <DELICIA PIMENTEL - Last Filed: 01/25/17 07:14> <DARI WAITE - Last Filed: 01/25/17 08:38> - Discharge Clinical Impression: Cholelithiasis Qualifiers: Cholelithiasis location: gallbladder Cholecystitis presence: without cholecystitis Biliary obstruction: without biliary obstruction Qualified Code(s) : K80.20 - Calculus of gallbladder without cholecystitis without obstruction Condition: Good Disposition: HOME, SELF-CARE Additional Instructions: Return immediately for any new or worsening symptoms Followup with the surgery clinic, call tomorrow to make a followup appointment Gallbladder Disease Your evaluation shows evidence of gallbladder disease. The gallbladder is a pouch under the liver which stores bile. Stones, infection, or irritation of the gallbladder cause attacks of pain. Certain foods -- fats in particular -- may provoke attacks. The usual treatment for gallbladder disease is surgical removal of the gallbladder -- called a cholecystectomy. You will be referred to a physician qualified to advise you on the best treatment for your problem. Hospitalization is not necessary. Take clear liquids only until you are painfree. After that, you should stay on a low-fat diet, with frequent SMALL meals. Call the doctor or return at once if you develop severe pain, repeated vomiting, fever, or jaundice (a yellow color in the skin and whites of the eyes) . Prescriptions: Ondansetron [Zofran Odt 4 mg Tablet] 1 - 2 tab PO Q4H PRN #15 tab.rapdis PRN Reason: For Nausea/Vomiting Oxycodone HCl/Acetaminophen [Percocet 5-325 mg Tablet] 1 - 2 tab PO Q4H PRN #15 tablet PRN Reason: Forms: Parent Work Note Referrals: [facility] [Provider Group] - Follow up as needed EPIFANIO CHRISTINE MD [ACTIVE STAFF] - Follow up in 3-5 days
[2017-01-25 05:44] LABS: ABSOLUTE EOSINOPHILS # (AUTO) 0.2 10^3/uL (0.0-0.6); ABSOLUTE LYMPHOCYTES (AUTO) 2.9 10^3/uL (0.5-4.7); ABSOLUTE MONOCYTES (AUTO) 0.4 10^3/uL (0.1-1.4); ABSOLUTE NEUT (AUTO) 4.1 10^3/uL (1.7-8.2); BASOPHILS % (AUTO) 0.6 % (0-2); EOSINOPHILS % (AUTO) 2.5 % (0-6); HEMATOCRIT 42.1 % (36.0-47.0); HEMOGLOBIN 14.1 g/dL (12.0-15.5); HGB HCT DIFFERENCE 0.2; LYMPHOCYTES % (AUTO) 37.9 % (13-45); MEAN CORPUSCULAR HEMOGLOBIN 28.9 pg (27.0-33.4); MEAN CORPUSCULAR HGB CONC 33.5 g/dL (32.0-36.0); MEAN CORPUSCULAR VOLUME 86 fl (80-97); MONOCYTES % (AUTO) 5.8 % (3-13); RED CELL DISTRIBUTION WIDTH 14.9 % (11.5-14.0); SEGMENTED NEUTROPHILS % (AUTO) 53.2 % (42-78); WHITE BLOOD COUNT 7.7 10^3/uL (4.0-10.5)
[2017-01-25 05:55] LABS: ALANINE AMINOTRANSFERASE 39 U/L (9-52); ALBUMIN 4.1 g/dL (3.5-5.0); ALKALINE PHOSPHATASE 105 U/L (38-126); ANION GAP 12 (5-19); ASPARTATE AMINO TRANSFERASE 44 U/L (14-36); BILIRUBIN,DIRECT 0.2 mg/dL (0.0-0.4); BILIRUBIN,TOTAL 0.2 mg/dL (0.2-1.3); BLOOD UREA NITROGEN 15 mg/dL (7-20); CALCIUM 10.1 mg/dL (8.4-10.2); CARBON DIOXIDE 26 mmol/L (22-30); CHLORIDE 105 mmol/L (98-107); CREATININE RESULT 0.73 mg/dL (0.52-1.25); GLUCOSE 111 mg/dL (75-110); LIPASE 155.4 U/L (23-300); POTASSIUM 4.3 mmol/L (3.6-5.0); SODIUM 143.1 mmol/L (137-145); TOTAL PROTEIN 7.3 g/dL (6.3-8.2)
[2017-01-25 06:40] LABS: APPEARANCE,URINE SLIGHTLY-CLOUDY; BILIRUBIN,URINE NEGATIVE (NEGATIVE); GLUCOSE, URINE NEGATIVE (NEGATIVE); KETONES,URINE NEGATIVE (NEGATIVE); LEUKOCYTE ESTERASE,URINE NEGATIVE (NEGATIVE); NITRITE,URINE NEGATIVE (NEGATIVE); PROTEIN,URINE NEGATIVE (NEGATIVE); URINE SPECIFIC GRAVITY 1.027; UROBILINOGEN,URINE NEGATIVE mg/dL (<2.0)
--- NOTE | 2017-01-25 07:33 | RADIOLOGY REPORT (SQ) ---
EXAM DESCRIPTION: U/S ABDOMEN LIMITED W/O DOP COMPLETED DATE/TIME: 01/25/2017 7:03 am REASON FOR STUDY: epig, RUQ pain COMPARISON: None. TECHNIQUE: Dynamic and static grayscale images acquired of the abdomen and recorded on PACS. Additio nal selected color Doppler and spectral images recorded. LIMITATIONS: None. FINDINGS: PANCREAS: No masses. Visualized pancreatic duct normal caliber. LIVER: No masses. Echotexture normal. LIVER VASCULATURE: Normal directional flow of the main portal vein and hepatic veins. GALLBLADDER: Gallstone(s). No pericholecystic fluid. No wall thickening. ULTRASOUND-DETECTED AGUILAR'S SIGN: Negative. INTRAHEPATIC DUCTS AND COMMON DUCT: CBD and intrahepatic ducts normal caliber. No filling defects. INFERIOR VENA CAVA: Normal flow. AORTA: No aneurysm. RIGHT KIDNEY: Normal size. Normal echogenicity. No solid or suspicious masses. No hydronephrosis. No calcifications. PERITONEAL AND RIGHT PLEURAL SPACE: No ascites or effusions. OTHER: No other significant findings. IMPRESSION: No acute findings. Cholelithiasis. TECHNICAL DOCUMENTATION: JOB ID: [id number]- All Rights Reserved
[2017-01-25] MEDS ORDERED: TRAMADOL HCL 50 MG TABLET PO ONE (07:55)
[2017-01-25] MEDS ORDERED: ONDANSETRON 4 MG TAB.RAPDIS PO ONE (07:55)
[2017-01-25 08:50] VITALS: BP 134/73
== END 2017-01-25 08:50 | disposition home or self-care (01) ==
LOC: ER 05:02
DX: K80.20 Calculus of gallbladder without cholecystitis without obstruction (principal); R10.13 Epigastric pain; R11.2 Nausea with vomiting, unspecified; R19.7 Diarrhea, unspecified; F17.200 Nicotine dependence, unspecified, uncomplicated; I10 Essential (primary) hypertension; Z88.0 Allergy status to penicillin; Z88.1 Allergy status to other antibiotic agents; Z87.19 Personal history of other diseases of the digestive system
CPT/HCPCS: 99284; 96361; 96374; 36415; 83690; 84703; 85025; 80053; 81001; 76705; S0119; J3490 ×2; J2405; J7030

== ENCOUNTER 2017-02-09 08:34 | Day surgery (SDC) | payer MEDICAID ==
[2017-02-07 11:20] LABS: HEMATOCRIT 38.6 % (36.0-47.0); HEMOGLOBIN 13.1 g/dL (12.0-15.5); HGB HCT DIFFERENCE 0.7; MEAN CORPUSCULAR HEMOGLOBIN 28.7 pg (27.0-33.4); MEAN CORPUSCULAR HGB CONC 33.9 g/dL (32.0-36.0); MEAN CORPUSCULAR VOLUME 85 fl (80-97); RED BLOOD COUNT 4.56 10^6/uL (3.72-5.28); RED CELL DISTRIBUTION WIDTH 14.8 % (11.5-14.0); WHITE BLOOD COUNT 7.3 10^3/uL (4.0-10.5)
[2017-02-07 11:49] LABS: AMYLASE 52 U/L (30-110); ANION GAP 11 (5-19); BLOOD UREA NITROGEN 11 mg/dL (7-20); CARBON DIOXIDE 24 mmol/L (22-30); CHLORIDE 105 mmol/L (98-107); CREATININE RESULT 0.78 mg/dL (0.52-1.25); GLUCOSE 81 mg/dL (75-110); SODIUM 139.5 mmol/L (137-145)
[~2017-02-09 08:34] MED LIST: ACETAMINOPHEN 325 MG TABLET PO PRN; CLINDAMYCIN PHOSPHATE 500 MG in DEXTROSE 5%-WATER 50 ML IV PRN; LACTATED RINGERS 1000 ML IV PRN; LIDOCAINE 0.5% INJ-PF (5 MG/ML) 50 ML SDV SUBCUT PRN
[2017-02-09] MEDS ORDERED: KETOROLAC TROMETHAMINE 60 MG/2 ML SDV ONE (09:43)
[2017-02-09] MEDS ORDERED: ONDANSETRON HCL INJ/PF 4 MG/2 ML SDV ONE (09:43)
[2017-02-09] MEDS ORDERED: ROCURONIUM BROMIDE INJ 50 MG/5 ML VIAL IV ONE (09:43)
[2017-02-09] MEDS ORDERED: GLYCOPYRROLATE INJ 0.4 MG/2 ML VIAL ONE (09:43)
[2017-02-09] MEDS ORDERED: VECURONIUM BROMIDE INJ 10 MG VIAL IV ONE (09:43)
[2017-02-09] MEDS ORDERED: NEOSTIGMINE METHYLSULFATE 10 MG/10 ML VIAL ONE (09:43)
[2017-02-09] MEDS ORDERED: DEXAMETHASONE SOD PHOSPHATE INJ 4 MG/1 ML VIAL ONE (09:43)
[2017-02-09] MEDS ORDERED: SUCCINYLCHOLINE CHLORIDE INJ 200 MG/10 ML VIAL ONE (09:43)
[2017-02-09] MEDS ORDERED: BUPIVACAINE HCL 0.25 % INJ/PF (2.5 MG/1 ML) 30 ML VIAL ONE (10:49)
[2017-02-09] MEDS ORDERED: FENTANYL CITRATE INJ/PF 250 MCG/5 ML AMPULE ONE (11:07)
[2017-02-09] MEDS ORDERED: FENTANYL CITRATE INJ/PF 100 MCG/2 ML AMPUL ONE (11:07)
[2017-02-09] MEDS ORDERED: MIDAZOLAM 2 MG/2 ML INJ ONE (11:08)
[2017-02-09] MEDS ORDERED: PROPOFOL INJ 200 MG/20 ML VIAL IV ONE (11:08)
[2017-02-09] MEDS ORDERED: ACETAMINOPHEN 100 ML IV ONE (11:08)
[2017-02-09] MEDS ORDERED: MORPHINE SULFATE 10 MG/ML INJ IV PRN (11:56)
[2017-02-09] MEDS ORDERED: PROMETHAZINE HCL INJ 25 MG/1 ML VIAL IV PRN (11:56)
[2017-02-09] MEDS ORDERED: DIPHENHYDRAMINE HCL 50 MG/ML VIAL IV PRN (11:56)
[2017-02-09] MEDS ORDERED: FENTANYL CITRATE INJ/PF 100 MCG/2 ML AMPUL IV PRN ×3 (11:56)
[2017-02-09] MEDS ORDERED: MEPERIDINE HCL/PF INJ 25 MG/1 ML DISP.SYRIN IV PRN (11:56)
[2017-02-09] MEDS ORDERED: OXYCODONE-ACETAMINOPHEN 5-325 MG TABLET PO PRN (12:19)
[2017-02-09] MEDS ORDERED: ONDANSETRON HCL INJ/PF 4 MG/2 ML SDV IV PRN (12:19)
--- NOTE | 2017-02-09 12:19 | PDOC DISCHARGE SUMMARY ---
Discharge Summary (SDC) - Discharge Final Diagnosis: cholelithiasis Date of Surgery: 02/09/17 Discharge Date: 02/09/17 Condition: Stable Treatment or Instructions: [facility] [address] [place], [place] [address] Discharge Instructions: Laparoscopic Surgery 1. General Information: a. DO NOT DRIVE a car or operate dangerous machinery for 3-4 days or while taking narcotic pain pills. b. DO NOT consume alcohol, tranquilizers, sleeping medications or any non- prescribed medications for 24 hours unless approved by your doctor or as long as taking narcotic prescription medications. c. DO NOT make important decisions or sign any important papers for the first 24 hours after surgery. d. When discharged home the same day of surgery have a responsible person with you for the first night. 2. Activity Restrictions: 2 weeks a. NO heavy lifting, straining abdominal muscles, bending over a lot, yard work, house work, or sports for [address] for 3-4 days or while taking ___narcotic pain medication__ . c. It is fine to go for walks, up and down steps, ride in a car. d. Elevate your head when sleeping/resting. 3. Treatment: a. You may shower 24 hours after surgery, no baths or swimming for 2 weeks. Remove band-aids or dressings before shower but leave paper strips (steri-strips ) on the skin to fall off on their own. If still on at postoperative visit they will be removed then. b. Drainage of fluid or blood is not unusual from an incision. If occurs, you can clean with peroxide and cotton ball daily and cover with dry gauze until the wound seals. c. If a lot of bleeding occurs, you can hold pressure with a gauze or cloth over the site for 10 minutes and it will usually stop. If bleeding continues you will need to call for possible evaluation in office or emergency room. 4. Medications: a. __Toradol_ may be taken for pain as needed, one or two tablets every 4-6 hours. Stop the narcotic when able since you cannot take it and drive, and they cause constipation. You may switch to plain Tylenol, Advil or Aleve as you transition from the narcotic. Many adults find good pain relief with Advil 600- 800 mg three times a day with meals. This can cause indigestion, ulcers, and kidney problems with long-term use. b. You should resume all normal medications unless a change is specified by your doctors. c. Antibiotic(s) if needed ( NONE) 5. Diet: Begin with clear liquids and may progress to your normal diet if not nauseated. No high fat, high protein foods the day of surgery. 6. The following may occur after laparoscopic surgery: a. Shoulder or upper back ache from retained gas that should resolve in 1-2 days b. Soreness and bruising at incision sites will resolve with time. c. Scrotal swelling (labia in women) and bruising is often seen after hernia surgery. d. Sore throat e. Fatigue may last days to weeks. f. Difficulty urinating may occur and may need to come into emergency room for urinary catheter placement. 7. Notify Physician If: a. Worsening or pain not improved with pain medication b. Persistent nausea and vomiting c. Fever above 101 d. Persistent bleeding or swelling at operative site e. Unable to urinate and uncomfortable bladder 6-8 hours after surgery 8..Follow Up Care: a. Schedule a follow up appointment with your doctor for 2 weeks. In the event of any postoperative problems or questions or you may call the office during business hours or the On-Call physician evenings and weekends at [facility]. [facility] I understand the instructions for my postoperative care as described above and a copy has been given to me. Patient/Significant Other Witness Date Prescriptions: Ketorolac Tromethamine [Toradol 10 mg Tablet] 10 mg PO Q6HP PRN #25 tablet PRN Reason: Discharge Diet: As Tolerated Discharge Activity: Activity As Tolerated Report the Following to Your Physician Immediately: Nausea, Vomiting, Fever over 101 Degrees, Swelling, Warmth
--- NOTE | 2017-02-09 12:24 | Operative Report ---
Operative Report DATE OF SURGERY: 02/09/17 PREOPERATIVE DIAGNOSIS: Symptomatic cholelithiasis with cholecystitis POSTOPERATIVE DIAGNOSIS: Same OPERATION: Laparoscopic cholecystectomy SURGEON: EPIFANIO [address] [employer] SUPERVISOR: RAMSES PETE ANESTHESIA: GA TISSUE REMOVED OR ALTERED: Gallbladder with stones COMPLICATIONS: None ESTIMATED BLOOD LOSS: Scant INTRAOPERATIVE FINDINGS: See below PROCEDURE: The patient was taken from the preop holding her to the main operating room where general anesthesia was induced. Abdomen was exposed, arms abducted, and the abdomen prepped and draped in sterile fashion. Surgical plan and surgical timeout conducted Markings were made for four approach to gallbladder removal. Skin was anesthetized with 1% lidocaine plain. We initially made a small vertical incision above the umbilicus. There was some dense subcutaneous fat around the umbilicus. For this reason I aborted this approach and made a small stab wound in the right upper quadrant at the site of 1 of the intended port placements. Veress needle was inserted the peritoneal cavity pneumoperitoneum was established. Veress needle was removed, 5 mm ports inserted and a 5 mm flexible scope was inserted. Findings were significant for adhesions between the omentum and anterior abdominal wall below the umbilicus. We initially started to take some of these adhesions down, with electrocautery, but then realized we would have ample room to insert a 5 mm port above this area. We used the initially gated small incision above the umbilicus to insert our second port. Under direct visualization 2 additional ports were placed one the subxiphoid one in the subcostal position Findings were significant for no other intra-abdominal pathology. The gallbladder is moderately edematous consistent with cholecystitis. The gallbladder was grasped in the fundus and infundibulum and reflected up over the liver bed. The neck of the gallbladder junction with the cystic duct was dissected out. A triangle of Calot was opened widely. Cystic duct was of normal caliber. Cystic artery in its typical location. The critical view was obtained. Photographs were taken, cystic duct clipped twice proximally once distally divided with scissors. The cystic artery was then clipped twice proximally once distally divided with scissors. The gallbladder was removed from the liver bed using cautery dissection. There is a moderate amount of edema. The bladder was released from surface of the liver bed and brought to the patient is a supra umbilical port site without stone or bile spillage. There are multiple small stones. The specimen was ultimately sent to pathology. We returned the peritoneal cavity and checked for bleeding there was none. Clips were in excellent position a photograph taken of clips on cystic artery and cystic duct stumps. The previously discussed adhesions between the omentum and anterior abdominal wall were checked, and the interim left in contact with anterior abdominal wall showed no evidence of bleeding. There was no bowel loops adhesed to this area. We felt the operation was complete. Sponge and needle counts were correct. All ports removed under direct visualization, pneumoperitoneum evacuated wounds closed with 0 Vicryl 3-0 Vicryl benzoin and Steri-Strips Patient tolerated the procedure well, extubated and , taken to recovery in stable condition. The physician neurosurgical physician assistant, Ms. Aranda, provided assistance during this case by: Assisting and port insertion, retracting tissue, instillation of local anesthesia and closure of skin incisions.
[2017-02-09] MEDS: FENTANYL CITRATE INJ/PF 100 MCG/2 ML AMPUL ONE ×2 (12:54→13:03)
[2017-02-09 14:52] VITALS: BP 122/80
== END 2017-02-09 14:55 | disposition home or self-care (01) ==
LOC: OROUT 08:34
PROVIDERS: ATTEND Surgery
PROC: 0FT44ZZ Resection of Gallbladder, Percutaneous Endoscopic Approach (ICD-10-PCS; principal; 2017-02-09 10:30)
DX: K80.12 Calculus of gallbladder with acute and chronic cholecystitis without obstruction (principal); K21.9 Gastro-esophageal reflux disease without esophagitis; G43.909 Migraine, unspecified, not intractable, without status migrainosus; F17.210 Nicotine dependence, cigarettes, uncomplicated; Z79.899 Other long term (current) drug therapy; Z88.0 Allergy status to penicillin
CPT/HCPCS: 36415; 82150; 85027; 81025; 80048; 88304 ×2; 47562; J2250; J3490 ×3; J1100; J1885; J3010 ×2; J0330; J2405; S0020; J2704; J0131; 790

== ENCOUNTER 2018-09-18 10:07 | Emergency (ER) | payer MEDICAID ==
--- NOTE | 2018-09-18 10:31 | ER Document Report ---
ED Medical Screen (RME) - General Chief Complaint: Vaginal Bleeding Stated Complaint: VAGINAL BLEEDING Time Seen by Provider: 09/18/18 10:28 Mode of Arrival: Ambulatory Information source: Patient Notes: 28-year-old female presented to ED for complaint of severe heavy bleeding x1 week started on September 11. She states this is much heavier than her normal. But it is the time for her normal cycle. She states this cycle is much heavier than normal as well is lasting much longer. She states today she started passing a lot of clots and this is not her normal. Patient has a history of high blood pressure when and for about a year afterwards. She was also has a history of reactive airway when she is sick. Has a history of and gallbladder and she smokes a half a pack a day. Patient is alert oriented respirations regular and unlabored speaking in full sentences walks with even steady gait . I have greeted and performed a rapid initial assessment of this patient. A comprehensive ED assessment and evaluation of the patient, analysis of test results and completion of medical decision making process will be conducted by an additional ED providers. TRAVEL OUTSIDE OF THE [place] IN LAST 30 DAYS: No - Related Data Allergies/Adverse Reactions: amoxicillin [Amoxicillin] Allergy (Verified 09/18/18 10:16) Anaphylaxis cefuroxime axetil [From Ceftin] Allergy (Verified 09/18/18 10:16) VERY HYPERACTIVE ciprofloxacin [From Cipro] Allergy (Verified 09/18/18 10:16) Anaphylaxis ciprofloxacin HCl [From Cipro] Allergy (Verified 09/18/18 10:16) Anaphylaxis Past Medical History - Social History Frequency of alcohol use: None Drug Abuse: None - Past Medical History Cardiac Medical History: Reports: Hx Hypertension - D/T PREECLAMPSIA NO LONGER HYPERTENSIVE Denies: Hx Coronary Artery Disease, Hx Heart Attack Pulmonary Medical History: Reports: Hx Asthma - ONLY WHEN SICK; Reactive Airway Disease, Hx Pneumonia Denies: Hx Bronchitis, Hx COPD Neurological Medical History: Denies: Hx Cerebrovascular Accident, Hx Seizures Renal/ Medical History: Denies: Hx Peritoneal Dialysis GI Medical History: Reports: Hx Gastroesophageal Reflux Disease Musculoskeltal Medical History: Denies Hx Arthritis Psychiatric Medical History: Reports: Hx Depression Past Surgical History: Reports: Hx Section, Hx Cholecystectomy - Immunizations Immunizations up to date: Yes Hx Diphtheria, Pertussis, Tetanus Vaccination: Yes Physical Exam - Vital signs Vitals: Temp Pulse Resp BP Pulse Ox 98.5 F 69 16 130/82 H 100 09/18/18 10:18 09/18/18 10:18 09/18/18 10:18 09/18/18 10:18 09/18/18 10:18 Course - Vital Signs Vital signs: Temp Pulse Resp BP Pulse Ox 98.5 F 69 16 130/82 H 100 09/18/18 10:18 09/18/18 10:18 09/18/18 10:18 09/18/18 10:18 09/18/18 10:18
[2018-09-18 11:10] LABS: APPEARANCE,URINE SLIGHTLY-CLOUDY; BILIRUBIN,URINE NEGATIVE (NEGATIVE); COLOR,URINE YELLOW; GLUCOSE, URINE NEGATIVE (NEGATIVE); KETONES,URINE NEGATIVE (NEGATIVE); LEUKOCYTE ESTERASE,URINE NEGATIVE (NEGATIVE); NITRITE,URINE NEGATIVE (NEGATIVE); PROTEIN,URINE NEGATIVE (NEGATIVE); URINE SPECIFIC GRAVITY 1.019; UROBILINOGEN,URINE NEGATIVE mg/dL (<2.0)
[2018-09-18] MEDS ORDERED: KETOROLAC TROMETHAMINE 60 MG/2 ML SDV IM ONE (11:17)
[2018-09-18 12:29] LABS: ABSOLUTE EOSINOPHILS # (AUTO) 0.1 10^3/uL (0.0-0.6); ABSOLUTE LYMPHOCYTES (AUTO) 2.3 10^3/uL (0.5-4.7); ABSOLUTE MONOCYTES (AUTO) 0.4 10^3/uL (0.1-1.4); ABSOLUTE NEUT (AUTO) 4.2 10^3/uL (1.7-8.2); BASOPHILS % (AUTO) 0.4 % (0-2); EOSINOPHILS % (AUTO) 1.3 % (0-6); HEMATOCRIT 40.5 % (36.0-47.0); HEMOGLOBIN 13.6 g/dL (12.0-15.5); LYMPHOCYTES % (AUTO) 32.7 % (13-45); MEAN CORPUSCULAR HEMOGLOBIN 30.3 pg (27.0-33.4); MEAN CORPUSCULAR HGB CONC 33.7 g/dL (32.0-36.0); MEAN CORPUSCULAR VOLUME 90 fl (80-97); PLATELET COUNT 324 10^3/uL (150-450); SEGMENTED NEUTROPHILS % (AUTO) 59.6 % (42-78); TOTAL CELLS COUNTED % (AUTO) 100 %
[2018-09-18 12:32] LABS: ALANINE AMINOTRANSFERASE 29 U/L (9-52); ALBUMIN 4.2 g/dL (3.5-5.0); ALKALINE PHOSPHATASE 88 U/L (38-126); ANION GAP 11 (5-19); ASPARTATE AMINO TRANSFERASE 19 U/L (14-36); BILIRUBIN,DIRECT 0.2 mg/dL (0.0-0.4); BILIRUBIN,TOTAL 0.6 mg/dL (0.2-1.3); BLOOD UREA NITROGEN 6 mg/dL (7-20); CARBON DIOXIDE 24 mmol/L (22-30); CHLORIDE 107 mmol/L (98-107); GLUCOSE 89 mg/dL (75-110); POTASSIUM 4.1 mmol/L (3.6-5.0); SODIUM 141.9 mmol/L (137-145); TOTAL PROTEIN 7.4 g/dL (6.3-8.2)
[2018-09-18 12:37] LABS: BACTERIA (WET MOUNT) 4+ BACTERIA SEEN; RBCS (WET MOUNT) 4+ RBCS SEEN; T.VAGINALIS (WET MOUNT) NO TRICHOMONAS SEEN; WBCS (WET MOUNT) 3+ WBCS SEEN; YEAST (WET MOUNT) NO YEAST SEEN
[2018-09-18 14:09] LABS: CHLAM PCR NOT DETECTED (NOT DETECT); GON PCR NOT DETECTED (NOT DETECT)
--- NOTE | 2018-09-18 15:17 | RADIOLOGY REPORT (SQ) ---
EXAM DESCRIPTION: U/S OB TRANSVAG W/DOPPLER COMPLETED DATE/TIME: 09/18/2018 3:00 pm REASON FOR STUDY: vaginal bleeding, , pain COMPARISON: None. TECHNIQUE: Transvaginal static and realtime grayscale images acquired of the pelvis. Additional tyra cted spectral and color Doppler images recorded. All images stored on PACs. CLINICAL AGE: 5 weeks 0 days [facility].61 LIMITATIONS: None. FINDINGS: UTERUS: No visualized intrauterine . RIGHT ADNEXA: Normal ovary with normal vascular flow. No adnexal free fluid. No adnexal masses. LEFT ADNEXA: Normal ovary with normal vascular flow. No adnexal free fluid. No adnexal masses. FREE FLUID: None. OTHER: No other significant finding. IMPRESSION: NO VISUALIZED INTRA- OR EXTRAUTERINE . bHCG LEVEL TOO LOW TO EXPECT VISUALIZATION OF . ECTOPIC CANNOT BE EXCLUDED. FOLLOW-UP ULTRASOUND AND SERIAL BHCG LEVELS STRONGLY RECOMMENDED TO ACCURATELY ASSESS STATU S. TECHNICAL DOCUMENTATION: JOB ID: [id number] [employer]- All Rights Reserved Reading location - IP/workstation name: [email or web address]
[2018-09-18] MEDS ORDERED: HYDROCODONE/ACETAMINOPHEN 5-325 MG TABLET PO ONE (16:07)
[2018-09-18 16:08] VITALS: BP 142/86
--- NOTE | 2018-09-18 17:55 | ER Document Report ---
Entered by FLORENCIA SIMPSON SCRIBE 09/18/18 1123 Acting as scribe for:JEANA DEAN DO ED General - General Chief Complaint: Vaginal Bleeding Stated Complaint: VAGINAL BLEEDING Time Seen by Provider: 09/18/18 10:28 Primary Care Provider: [facility] [Provider Group] - Follow up as needed RYAN CAAL DO [Primary Care Provider] - Follow up as needed Mode of Arrival: Ambulatory Information source: Patient Notes: Patient is a 28 year old female with a history of ovarian cysts presents to the emergency department complaining of vaginal bleeding. Patient states she started her period on the 1st which appeared normal. Patient states her period has abnormally persisted and complains of abdominal cramping that radiates into her back. She also states her abdominal cramping is exacerbated when inserting a tampon. She describes the bleeding as a persistent bright red with blood clots developing this morning, further stating she seldom develops clots. She states she is soaking a tampon/pad within the hour. She denies any abnormal vaginal discharge. Does not think she is , had her last period 1 month ago. TRAVEL OUTSIDE OF THE [place] IN LAST 30 DAYS: No - Related Data Allergies/Adverse Reactions: amoxicillin [Amoxicillin] Allergy (Verified 09/18/18 10:16) Anaphylaxis cefuroxime axetil [From Ceftin] Allergy (Verified 09/18/18 10:16) VERY HYPERACTIVE ciprofloxacin [From Cipro] Allergy (Verified 09/18/18 10:16) Anaphylaxis ciprofloxacin HCl [From Cipro] Allergy (Verified 09/18/18 10:16) Anaphylaxis Past Medical History - General Information source: Patient - Social History Smoking Status: Current Some Day Smoker Cigarette use (# per day): Yes Frequency of alcohol use: None Drug Abuse: None Family History: Reviewed & Not Pertinent Patient has suicidal ideation: No Patient has homicidal ideation: No - Past Medical History Cardiac Medical History: Reports: Hx Hypertension - D/T PREECLAMPSIA NO LONGER HYPERTENSIVE Pulmonary Medical History: Reports: Hx Asthma - ONLY WHEN SICK; Reactive Airway Disease, Hx Pneumonia GI Medical History: Reports: Hx Gastroesophageal Reflux Disease Psychiatric Medical History: Reports: Hx Depression Past Surgical History: Reports: Hx Section, Hx Cholecystectomy - Immunizations Immunizations up to date: Yes Hx Diphtheria, Pertussis, Tetanus Vaccination: Yes Review of Systems - Review of Systems Constitutional: No symptoms reported EENT: No symptoms reported Cardiovascular: No symptoms reported Respiratory: No symptoms reported Gastrointestinal: See HPI, Abdominal pain Genitourinary: No symptoms reported Female Genitourinary: See HPI, Heavy/abnormal periods Musculoskeletal: No symptoms reported Skin: No symptoms reported Hematologic/Lymphatic: No symptoms reported Neurological/Psychological: No symptoms reported -: Yes All other systems reviewed and negative Physical Exam - Vital signs Vitals: Temp Pulse Resp BP Pulse Ox 98.5 F 69 16 130/82 H 100 09/18/18 10:18 09/18/18 10:18 09/18/18 10:18 09/18/18 10:18 09/18/18 10:18 - Notes Notes: GENERAL: Alert, interacts well. No acute distress. HEAD: Normocephalic, atraumatic. EYES: Pupils equal, round, and reactive to light. Extraocular movements intact. ENT: Oral mucosa moist, tongue midline. NECK: Full range of motion. Supple. Trachea midline. LUNGS: Clear to auscultation bilaterally, no wheezes, rales, or rhonchi. No respiratory distress. HEART: Regular rate and rhythm. No murmurs, gallops, or rubs. ABDOMEN: Soft, suprapubic tenderness to palpation. Non-distended. Bowel sounds present in all 4 quadrants. No guarding, rigidity, or rebound. EXTREMITIES: Moves all 4 extremities spontaneously. No edema, radial and dorsalis pedis pulses 2/4 bilaterally. No cyanosis. NEUROLOGICAL: Alert and oriented x3. Normal speech. PSYCH: Normal affect, normal mood. SKIN: Warm, dry, normal turgor. No rashes or lesions noted. PELVIC: Cervix is closed. Small amount of blood in the cul-de-sac, blood on the cervix that was easily wiped away. No signs of trauma. Course - Re-evaluation Re-evalutation: 09/18/18 14:46 CBC unremarkable, CMP unremarkable, test is positive, quant was sent and transvaginal ultrasound was ordered, quantitative hCG is 10.6, urinalysis shows moderate blood however I suspect this is contamination, wet prep does not show any signs of trichomonas or yeast, gonorrhea and chlamydia swabs are negative, transvaginal ultrasound and RhoGam testing is pending. 09/18/18 17:52 Transvaginal ultrasound is negative for any acute process, does not show an intrauterine at this time however with how low her quantitative hCG is we would not expect to see a at this time. Patient was very given very close discharge follow-up instructions including to have her quantitative hCG repeated in 48 hours, return here for heavier bleeding, increasing pain, lightheadedness or any new or concerning symptoms. Patient is aware that she may have an ectopic , may have an early viable intrauterine or may be having a miscarriage. Mother was in the room at the same time as I discussed these findings and they will return. Given prescription to have a repeat quant in 48 hours. - Vital Signs Vital signs: Temp Pulse Resp BP Pulse Ox 98.1 F 60 16 142/86 H 100 09/18/18 16:07 09/18/18 16:07 09/18/18 16:07 09/18/18 16:07 09/18/18 16:07 - Laboratory Result Diagrams: 09/18/18 11:58 09/18/18 11:58 Laboratory results interpreted by me: 09/18/18 09/18/18 09/18/18 10:41 11:58 11:58 BUN 6 L Serum HCG, Qual POSITIVE H Beta HCG, Quant Urine Blood MODERATE H 09/18/18 11:58 BUN Serum HCG, Qual Beta HCG, Quant 10.61 H Urine Blood Discharge - Discharge Clinical Impression: Vaginal bleeding affecting early , Threatened miscarriage Condition: Stable Disposition: HOME, SELF-CARE Additional Instructions: Right now your test is positive but it is very low. We were unable to see anything on the ultrasound. You need to have your quantitative beta-hCG (blood test) repeated in 48 hours. If it continues to go up you will need to continue to have it checked every 48 hours until we are able to see an intrauterine . Return to the emergency department for increasing pain, increasing bleeding, dizziness or any new any new or concerning symptoms. You may not put anything in your vagina. No sex, no tampons, no douching. Nothing. Prescriptions: Hydrocodone/Acetaminophen [[place] 5-325 mg Tablet] 1 tab PO Q4HP PRN #4 tablet PRN Reason: Forms: Follow-Up Laboratory Testing Referrals: RYAN CAAL DO [Primary Care Provider] - Follow up as needed [facility] [Provider Group] - Follow up as needed I personally performed the services described in the documentation, reviewed and edited the documentation which was dictated to the scribe in my presence, and it accurately records my words and actions.
== END 2018-09-18 16:15 | disposition home or self-care (01) ==
LOC: ER 10:07
DX: O20.0 Threatened abortion (principal); O26.891 Other specified pregnancy related conditions, first trimester; R10.9 Unspecified abdominal pain; O99.331 Smoking (tobacco) complicating pregnancy, first trimester; F17.210 Nicotine dependence, cigarettes, uncomplicated; O99.511 Diseases of the respiratory system complicating pregnancy, first trimester; J45.909 Unspecified asthma, uncomplicated; Z3A.01 Less than 8 weeks gestation of pregnancy; Z87.42 Personal history of other diseases of the female genital tract; Z87.892 Personal history of anaphylaxis; Z88.0 Allergy status to penicillin; Z88.1 Allergy status to other antibiotic agents
CPT/HCPCS: 99284; 96372; 86900; 86901; 36415; 87086; 87210; 84702; 84703; 85025; 80053; 81001; 87491; 87591; 76817; 93976; J1885

== ENCOUNTER 2018-10-30 10:48 | Emergency (ER) | payer MEDICAID ==
[2018-10-30 11:10] VITALS: BP 129/81
--- NOTE | 2018-10-30 11:36 | ER Document Report ---
ED General - General Chief Complaint: Cyst Stated Complaint: POSSIBLE ABSCESS Time Seen by Provider: 10/30/18 11:35 Primary Care Provider: RYAN CAAL DO [Primary Care Provider] - Follow up as needed TRAVEL OUTSIDE OF THE [place] IN LAST 30 DAYS: No - HPI Notes: 28-year-old female to the emergency department with complaints of a boil to her left buttocks for the past 2 days. States that she has been trying to apply warm compresses to it and see if it would drain on its own but it has not started to drain. States that she has had abscesses before but has never tested positive for MRSA. States she thinks she aggravated it yesterday while she was at work. 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 Denies fevers, chills, chest pain, shortness of breath, abdominal pain, rectal pain. - Related Data Allergies/Adverse Reactions: amoxicillin [Amoxicillin] Allergy (Verified 09/18/18 10:16) Anaphylaxis cefuroxime axetil [From Ceftin] Allergy (Verified 09/18/18 10:16) VERY HYPERACTIVE ciprofloxacin [From Cipro] Allergy (Verified 09/18/18 10:16) Anaphylaxis ciprofloxacin HCl [From Cipro] Allergy (Verified 09/18/18 10:16) Anaphylaxis Past Medical History - General Information source: Patient - Social History Smoking Status: Current Every Day Smoker Chew tobacco use (# tins/day): No Frequency of alcohol use: None Drug Abuse: None Family History: Reviewed & Not Pertinent Patient has suicidal ideation: No Patient has homicidal ideation: No - Past Medical History Cardiac Medical History: Reports: Hx Hypertension - D/T PREECLAMPSIA NO LONGER HYPERTENSIVE Denies: Hx Coronary Artery Disease, Hx Heart Attack Pulmonary Medical History: Reports: Hx Asthma - ONLY WHEN SICK; Reactive Airway Disease, Hx Pneumonia Denies: Hx Bronchitis, Hx COPD Neurological Medical History: Denies: Hx Cerebrovascular Accident, Hx Seizures Renal/ Medical History: Denies: Hx Peritoneal Dialysis GI Medical History: Reports: Hx Gastroesophageal Reflux Disease Musculoskeletal Medical History: Denies Hx Arthritis Psychiatric Medical History: Reports: Hx Depression Past Surgical History: Reports: Hx Section, Hx Cholecystectomy - Immunizations Immunizations up to date: Yes Hx Diphtheria, Pertussis, Tetanus Vaccination: Yes Review of Systems - Review of Systems Constitutional: denies: Chills, Diaphoresis, Fever EENT: No symptoms reported Cardiovascular: No symptoms reported Respiratory: No symptoms reported Gastrointestinal: denies: Abdominal pain, Diarrhea, Nausea, Vomiting Genitourinary: denies: Frequency, Flank pain, Urgency Musculoskeletal: No symptoms reported Skin: Other - Boil to the left buttocks Neurological/Psychological: No symptoms reported Physical Exam - Vital signs Vitals: Temp Pulse Resp BP Pulse Ox 98.2 F 79 20 129/81 H 100 10/30/18 11:09 10/30/18 11:09 10/30/18 11:10/30/18 11:10/30/18 11:09 Interpretation: Normal - General General appearance: Appears well, Alert - HEENT Head: Normocephalic, Atraumatic Eyes: Normal Pupils: PERRL - Respiratory Respiratory status: No respiratory distress Chest status: Nontender Breath sounds: Normal Chest palpation: Normal - Cardiovascular Rhythm: Regular Heart sounds: Normal auscultation Murmur: No - Abdominal Inspection: Normal Distension: No distension Bowel sounds: Normal Tenderness: Nontender Organomegaly: No organomegaly - Neurological Neuro grossly intact: Yes Cognition: Normal Orientation: AAOx4 Emilie Coma Scale Eye Opening: Spontaneous [place] Coma Scale Verbal: Oriented [place] Coma Scale Motor: Obeys Commands Emilie Coma Scale Total: 15 Speech: Normal Motor strength normal: LUE, RUE, LLE, RLE Sensory: Normal - Psychological Associated symptoms: Normal affect, Normal mood - Skin Skin Temperature: Warm Skin Moisture: Dry - To the left buttocks there is an actively draining abscess. It is very tender to palpation. there is minimal induration around the abscess. No rectal involvement. Course - Vital Signs Vital signs: Temp Pulse Resp BP Pulse Ox 98.2 F 79 20 129/81 H 100 10/30/18 11:09 10/30/18 11:09 10/30/18 11:10/30/18 11:10/30/18 11:09 - Transfer of Care Notes: 10/30/18 11:57 Impression: Left buttocks abscess that is actively draining on its own. Patient and I discussed incision and drainage and she is opted to allow the abscess to drain itself. Sent home with doxycycline and Naprosyn. Encouraged to continue warm compresses, perform sitz bath. Encouraged to follow-up with primary care physician. Return here if worsening pain, redness, streaking redness, fevers, vomiting or any other complaints. patient agrees with the plan Discharge - Discharge Clinical Impression: Abscess of left buttock Disposition: HOME, SELF-CARE Instructions: Abscess ([facility]) Additional Instructions: APPLY WARM COMPRESSES. WEAR FEMININE PAD WHILE ABSCESS IS DRAINING. RETURN IF WORSENING PAIN, FEVERS, STREAKING REDNESS. Prescriptions: Doxycycline Monohydrate 100 mg PO BID 10 Days #20 tablet Naproxen [Naprosyn] 500 mg PO BID #20 tablet Forms: Return to School, Return to Work Referrals: RYAN CAAL DO [Primary Care Provider] - Follow up in 3-5 days
[2018-10-30] MEDS ORDERED: HYDROCODONE/ACETAMINOPHEN 5-325 MG TABLET PO ONE (11:46)
== END 2018-10-30 11:56 | disposition home or self-care (01) ==
LOC: ER 10:48
DX: L02.31 Cutaneous abscess of buttock (principal); K21.9 Gastro-esophageal reflux disease without esophagitis; F32.9 Major depressive disorder, single episode, unspecified; Z90.49 Acquired absence of other specified parts of digestive tract; Z88.1 Allergy status to other antibiotic agents; F17.200 Nicotine dependence, unspecified, uncomplicated
CPT/HCPCS: 99282

== ENCOUNTER → 2018-11-22 | Outpatient (CLI) | payer MEDICAID | LOC: LAB 18:49 | PROVIDERS: ATTEND Nurse Practitioner Family | DX: N12 Tubulo-interstitial nephritis, not specified as acute or chronic (principal); R35.0 Frequency of micturition; R50.81 Fever presenting with conditions classified elsewhere | CPT/HCPCS: 87086; 87088; 87186 ==

== ENCOUNTER 2018-11-23 17:58 | Inpatient (IN) | payer MEDICAID ==
[2018-11-23] MEDS ORDERED: KETOROLAC TROMETHAMINE INJ/PF 30 MG/1 ML SDV IV ONE (18:33)
[2018-11-23] MEDS ORDERED: ACETAMINOPHEN 650 MG SUPP.RECT PR ONE (18:33)
[2018-11-23] MEDS ORDERED: CEFTRIAXONE INJ 1000 MG VIAL IV ONE (18:41)
[2018-11-23] MEDS ORDERED: CEFTRIAXONE 1 GM/D5W RTU 1 GM/50 ML RTUPB IV ONE (18:42)
[2018-11-23] MEDS ORDERED: DIPHENHYDRAMINE HCL 50 MG/ML VIAL IV ONE (18:43)
[2018-11-23] MEDS ORDERED: FAMOTIDINE INJ/PF 20 MG/2 ML SDV IV ONE ×2 (18:43→23:30)
[2018-11-23] MEDS ORDERED: ONDANSETRON HCL INJ/PF 4 MG/2 ML SDV IV ONE (18:55)
[2018-11-23] MEDS: NORMAL SALINE 1000 ML 1,000 ML IV PRN ×2 (19:00→19:46)
[2018-11-23 19:02] LABS: VENOUS BLOOD BASE EXCESS 0.3 mmol/L; VENOUS BLOOD HCO3 20.5 mmol/L (20-32); VENOUS BLOOD PH 7.55 (7.30-7.42)
[2018-11-23 19:07] LABS: ABSOLUTE BASOPHILS # (AUTO) 0.1 10^3/uL (0.0-0.2); ABSOLUTE LYMPHOCYTES (AUTO) 0.6 10^3/uL (0.5-4.7); ABSOLUTE MONOCYTES (AUTO) 1.3 10^3/uL (0.1-1.4); ABSOLUTE NEUT (AUTO) 16.7 10^3/uL (1.7-8.2); BASOPHILS % (AUTO) 0.6 % (0-2); HEMATOCRIT 42.8 % (36.0-47.0); HEMOGLOBIN 14.4 g/dL (12.0-15.5); MEAN CORPUSCULAR HEMOGLOBIN 29.7 pg (27.0-33.4); MEAN CORPUSCULAR HGB CONC 33.6 g/dL (32.0-36.0); MEAN CORPUSCULAR VOLUME 89 fl (80-97); MONOCYTES % (AUTO) 6.9 % (3-13); PLATELET COUNT 290 10^3/uL (150-450); RED BLOOD COUNT 4.83 10^6/uL (3.72-5.28); RED CELL DISTRIBUTION WIDTH 13.3 % (11.5-14.0); SEGMENTED NEUTROPHILS % (AUTO) 89.5 % (42-78); TOTAL CELLS COUNTED % (AUTO) 100 %; WHITE BLOOD COUNT 18.7 10^3/uL (4.0-10.5)
[2018-11-23 19:22] LABS: ALANINE AMINOTRANSFERASE 24 U/L (9-52); ALBUMIN 4.3 g/dL (3.5-5.0); ALKALINE PHOSPHATASE 123 U/L (38-126); ANION GAP 15 (5-19); ASPARTATE AMINO TRANSFERASE 25 U/L (14-36); BILIRUBIN,DIRECT 0.5 mg/dL (0.0-0.4); BILIRUBIN,TOTAL 0.8 mg/dL (0.2-1.3); BLOOD UREA NITROGEN 18 mg/dL (7-20); CALCIUM 10.3 mg/dL (8.4-10.2); CARBON DIOXIDE 22 mmol/L (22-30); CHLORIDE 100 mmol/L (98-107); GLUCOSE 154 mg/dL (75-110); POTASSIUM 4.1 mmol/L (3.6-5.0); SODIUM 137.2 mmol/L (137-145); TOTAL PROTEIN 7.8 g/dL (6.3-8.2)
[2018-11-23 19:23] LABS: INTERNATIONAL RATION (INR) 1.17
--- NOTE | 2018-11-23 19:45 | RADIOLOGY REPORT (SQ) ---
EXAM DESCRIPTION: CHEST 2 VIEWS COMPLETED DATE/TIME: 11/23/2018 7:20 pm REASON FOR STUDY: fever possible sepsis COMPARISON: None. TECHNIQUE: Frontal and lateral radiographic views of the chest acquired. NUMBER OF VIEWS: Two view. LIMITATIONS: None. FINDINGS: LUNGS AND PLEURA: No opacities, masses or pneumothorax. No pleural effusion. MEDIASTINUM AND HILAR STRUCTURES: No masses or contour abnormalities. HEART AND VASCULAR STRUCTURES: Heart normal size. No evidence for failure. BONES: No acute findings. HARDWARE: None in the chest. OTHER: No other significant finding. IMPRESSION: NO SIGNIFICANT RADIOGRAPHIC FINDING IN THE CHEST. TECHNICAL DOCUMENTATION: JOB ID: [id number] [employer]- All Rights Reserved Reading location - IP/workstation name: [email or web address]
[2018-11-23] MEDS ORDERED: SULFAMETHOX/TRIMETH 800-160 MG/10 ML VIAL IV ONE (19:47)
--- NOTE | 2018-11-23 19:53 | ER Document Report ---
ED GI/ - General Chief Complaint: Vomiting Stated Complaint: FEVER Time Seen by Provider: 11/23/18 18:32 Mode of Arrival: Ambulatory Information source: Patient TRAVEL OUTSIDE OF THE [place] IN LAST 30 DAYS: No - HPI Patient complains to provider of: Flank pain, Vomiting Onset: Yesterday Timing/Duration: Sudden Quality of pain: Sharp Severity at maximum: Moderate Severity in ED: Moderate Pain Level: 3 Location: Right flank Vaginal bleeding (Compared to normal period): None Associated symptoms: Diarrhea, Fever, Nausea, Urinary frequency, Vomiting Exacerbated by: Denies Relieved by: Denies Similar symptoms previously: No Recently seen / treated by doctor: Yes - Related Data Allergies/Adverse Reactions: amoxicillin [Amoxicillin] Allergy (Verified 11/23/18 18:23) Anaphylaxis cefuroxime axetil [From Ceftin] Allergy (Verified 11/23/18 18:23) VERY HYPERACTIVE ciprofloxacin [From Cipro] Allergy (Verified 11/23/18 18:23) Anaphylaxis ciprofloxacin HCl [From Cipro] Allergy (Verified 11/23/18 18:23) Anaphylaxis Past Medical History - Social History Smoking Status: Never Smoker Chew tobacco use (# tins/day): No Frequency of alcohol use: None Drug Abuse: None Family History: Reviewed & Not Pertinent Patient has suicidal ideation: No Patient has homicidal ideation: No - Past Medical History Cardiac Medical History: Reports: Hx Hypertension - D/T PREECLAMPSIA NO LONGER HYPERTENSIVE Denies: Hx Coronary Artery Disease, Hx Heart Attack Pulmonary Medical History: Reports: Hx Asthma - ONLY WHEN SICK; Reactive Airway Disease, Hx Pneumonia Denies: Hx Bronchitis, Hx COPD Neurological Medical History: Denies: Hx Cerebrovascular Accident, Hx Seizures Renal/ Medical History: Denies: Hx Peritoneal Dialysis GI Medical History: Reports: Hx Gastroesophageal Reflux Disease Musculoskeletal Medical History: Denies Hx Arthritis Psychiatric Medical History: Reports: Hx Depression Past Surgical History: Reports: Hx Section, Hx Cholecystectomy - Immunizations Immunizations up to date: Yes Hx Diphtheria, Pertussis, Tetanus Vaccination: Yes Review of Systems - Review of Systems Constitutional: Chills, Fever EENT: No symptoms reported Cardiovascular: No symptoms reported Respiratory: No symptoms reported Gastrointestinal: Abdominal pain, Diarrhea, Nausea, Vomiting Genitourinary: No symptoms reported Female Genitourinary: No symptoms reported Musculoskeletal: No symptoms reported Skin: No symptoms reported Hematologic/Lymphatic: No symptoms reported Neurological/Psychological: No symptoms reported -: Yes All other systems reviewed and negative Physical Exam - Vital signs Vitals: Temp Pulse Resp BP Pulse Ox 102.6 F H 136 H 28 H 149/79 H 100 11/23/18 18:18 11/23/18 18:18 11/23/18 18:18 11/23/18 18:18 11/23/18 18:18 Interpretation: Normal - General General appearance: Appears well, Alert In distress: Mild - HEENT Head: Normocephalic, Atraumatic Eyes: Normal Pupils: PERRL - Respiratory Respiratory status: No respiratory distress Chest status: Nontender Breath sounds: Normal Chest palpation: Normal - Cardiovascular Rhythm: Regular Heart sounds: Normal auscultation Murmur: No - Abdominal Inspection: Normal Distension: No distension Bowel sounds: Normal Tenderness: Tender - Right CVA tenderness to palpation. Organomegaly: No organomegaly - Back Back: Normal, Nontender - Extremities General upper extremity: Normal inspection, Nontender, Normal color, Normal ROM, Normal temperature General lower extremity: Normal inspection, Nontender, Normal color, Normal ROM, Normal temperature, Normal weight bearing. No: Tyra's sign - Neurological Neuro grossly intact: Yes Cognition: Normal Orientation: AAOx4 [place] Coma Scale Eye Opening: Spontaneous [place] Coma Scale Verbal: Oriented [place] Coma Scale Motor: Obeys Commands [place] Coma Scale Total: 15 Speech: Normal Motor strength normal: LUE, RUE, LLE, RLE Sensory: Normal - Psychological Associated symptoms: Normal affect, Normal mood - Skin Skin Temperature: Warm Skin Moisture: Dry Skin Color: Normal Course - Re-evaluation Re-evalutation: 11/23/18 22:29 On re-evaluation patient is feeling much better. However she still has nausea and abdominal pain. Splint to her and her family that she will be admitted to the hospital for further management. - Vital Signs Vital signs: Temp Pulse Resp BP Pulse Ox 99.4 F 96 18 116/60 100 11/24/18 00:14 11/24/18 00:14 11/24/18 00:14 11/24/18 00:14 11/24/18 00:14 - Laboratory Result Diagrams: 11/23/18 18:45 11/23/18 18:45 Laboratory results interpreted by me: 11/23/18 11/23/18 11/23/18 18:45 18:45 18:45 WBC 18.7 H Seg Neutrophils % 89.5 H Lymphocytes % 3.0 L Absolute Neutrophils 16.7 H VBG pH 7.55 H VBG pCO2 24.0 L Glucose 154 H Calcium 10.3 H Direct Bilirubin 0.5 H Urine Protein Urine Ketones Ur Leukocyte Esterase 11/23/18 20:28 WBC Seg Neutrophils % Lymphocytes % Absolute Neutrophils VBG pH VBG pCO2 Glucose Calcium Direct Bilirubin Urine Protein 100 H Urine Ketones TRACE H Ur Leukocyte Esterase MODERATE H - Diagnostic Test Radiology reviewed: Reports reviewed Radiology results interpreted by me: 11/23/18 22:29 Chest x-ray is unremarkable. CT abdomen and pelvis shows right pyelonephritis. - EKG Interpretation by Me EKG shows normal: Sinus rhythm Rate: Tachycardia Rhythm: NSR When compared to previous EKG there are: Previous EKG unavailable Additional EKG results interpreted by me: 11/23/18 21:11 No STEMI. - Transfer of Care Notes: 11/23/18 22:30 Consulted the hospitalist product applications scientist Dr. Griffiths. He will admit the patient to the hospital for further management. Critical Care Note - Critical Care Note Total time excluding time spent on procedures (mins): 50 Comments: Time was spent reviewing labs, imaging study, consultation, discussing patient care with the patient and her family and multiple evaluations at the bedside. Discharge - Discharge Clinical Impression: Pyelonephritis of right kidney, Pyelonephritis, acute, Acute right flank pain UTI (urinary tract infection) Qualifiers: Urinary tract infection type: acute cystitis Hematuria presence: without hematuria Qualified Code(s): N30.00 - Acute cystitis without hematuria Intractable nausea and vomiting Qualifiers: Vomiting type: unspecified Qualified Code(s): R11.2 - Nausea with vomiting, unspecified Sepsis Qualifiers: Sepsis type: sepsis due to unspecified organism Qualified Code(s): A41.9 - Sepsis, unspecified organism Condition: Stable Disposition: ADMITTED INPATIENT Admitting Provider: Aye (Hospitalist) Unit Admitted: Medical Floor
[2018-11-23] MEDS ORDERED: ACETAMINOPHEN 1,000 MG/100 ML RTUPB IV ONE (20:00)
--- NOTE | 2018-11-23 20:06 | EKG REPORT ---
SEVERITY:- OTHERWISE NORMAL ECG - SINUS TACHYCARDIA : Confirmed by: Monica Del Rio MD 23-Nov-2018 20:05:37
[2018-11-23 20:46] LABS: APPEARANCE,URINE SLIGHTLY-CLOUDY; BILIRUBIN,URINE NEGATIVE (NEGATIVE); COLOR,URINE AMBER; GLUCOSE, URINE NEGATIVE (NEGATIVE); KETONES,URINE TRACE mg/dL (NEGATIVE); LEUKOCYTE ESTERASE,URINE MODERATE (NEGATIVE); NITRITE,URINE NEGATIVE (NEGATIVE); PROTEIN,URINE 100 mg/dL (NEGATIVE); URINE SPECIFIC GRAVITY 1.027; UROBILINOGEN,URINE NEGATIVE mg/dL (<2.0)
[2018-11-23] MEDS ORDERED: MORPHINE SULFATE 10 MG/ML INJ IV ONE (22:01)
[2018-11-23] MEDS ORDERED: NORMAL SALINE 1000 ML 1,000 ML IV ONE (22:02)
[2018-11-23] MEDS ORDERED: METOCLOPRAMIDE HCL INJ/PF 10 MG/2 ML SDV IV ONE (22:02)
--- NOTE | 2018-11-23 22:05 | RADIOLOGY REPORT (SQ) ---
EXAM DESCRIPTION: CT ABDOMEN PELVIS WITH IV CONTRAST COMPLETED DATE/TME: 11/23/2018 20:25 CLINICAL HISTORY: 28 years Female Right Flank Pain COMPARISON: None. TECHNIQUE: Contiguous axial images obtained through the abdomen and pelvis following IV contrast. Reformatted images obtained. This exam was performed according to our department optimization program which includes automated exposure control, adjustment of the mA and/or kv according to patient size and/or use of iterative reconstruction technique. FINDINGS: The liver appears unremarkable. The spleen and pancreas appear unremarkable. No adrenal masses. Heterogeneous right kidney particularly along the posterior and inferior aspect. Findings are consistent with pyelonephritis. Area of developing phlegmon not entirely excluded. The gallbladder is absent. No aneurysmal dilatation of the aorta. No bowel obstruction. The appendix is unremarkable. Small amount of fluid along the right retroperitoneum IMPRESSION: Findings consistent with right pyelonephritis.
[2018-11-23] MEDS ORDERED: ZOLPIDEM TARTRATE 5 MG TABLET PO PRN (23:00)
[2018-11-23] MEDS ORDERED: MAGNESIUM HYDROXIDE SUSP 30 ML UDCUP PO PRN (23:00)
[2018-11-23] MEDS ORDERED: MAG HYDROX/AL HYDROX/SIMETH SUSP 30 ML UDCUP PO PRN (23:00)
[2018-11-23] MEDS ORDERED: METOCLOPRAMIDE HCL INJ/PF 10 MG/2 ML SDV IV PRN (23:00)
[2018-11-24 00:07] LABS: FREE T3 5.22 pg/mL (2.77-5.27); FREE T4 (FREE THYROXINE) 1.72 ng/dL (0.78-2.19)
[2018-11-24 00:20] LABS: THYROID STIMULATING HORMONE 2.11 uIU/mL (0.47-4.68)
[2018-11-24] MEDS ORDERED: MORPHINE SULFATE 10 MG/ML INJ IV PRN ×3 (01:11→01:16)
[2018-11-24] MEDS: RINGERS SOLUTION,LACTATED 1,000 ML IV PRN ×3 (01:15→14:36)
[2018-11-24] MEDS: MORPHINE SULFATE 10 MG/ML INJ IV PRN ×3 (01:30→08:48)
--- NOTE | 2018-11-24 03:46 | PDOC H&P ---
History of Present Illness Admission Date/PCP: 11/23/2018 22:26 RYAN CAAL DO Patient complains of: Flank pain History of Present Illness: RHETT CADENA is a 28 year old female who presented to the emergency room with a 2 day history of right flank pain. She admits the sudden onset of a moderately severe, constant, sharp pain in her right flank without radiation during her normal activities yesterday. The pain has been accompanied by headache, nausea, vomiting, diarrhea, urinary frequency, urinary urgency and a subjective fever with chills. She denies prior similar symptoms and has not identified any aggravating or ameliorating factors for her right flank pain. In the emergency room she was found to have an elevated white count with a significant pyuria and acute right pyelonephritis by CT of the abdomen and pelvis. She was subsequently admitted to the hospital for further evaluation and treatment. Past Medical History Cardiac Medical History: Reports: Hypertension - D/T PREECLAMPSIA NO LONGER HYPERTENSIVE Denies: Coronary Artery Disease, Myocardial Infarction Pulmonary Medical History: Reports: Asthma - ONLY WHEN SICK; Reactive Airway Disease, Pneumonia Denies: Bronchitis, Chronic Obstructive Pulmonary Disease (COPD) EENT Medical History: Denies: Cataracts, Eyes - Prescription lenses, Ears - Hearing aids Neurological Medical History: Reports: Migraine Denies: Multiple Sclerosis, Seizures Endocrine Medical History: Reports: Obesity Denies: Diabetes Mellitus Type 1, Diabetes Mellitus Type 2, Hyperthyroidism, Hypothyroidism Renal/ Medical History: Denies: Chronic Kidney Disease, Nephrolithiasis Malignancy Medical History: Reports: None GI Medical History: Reports: Gastroesophageal Reflux Disease Denies: Cirrhosis, Hepatitis Musculoskeltal Medical History: Denies: Arthritis, Fibromyalgia Skin Medical History: Denies: Eczema, Psoriasis Psychiatric Medical History: Reports: Depression, Substance Abuse Denies: Alcohol Dependency, Tobacco Dependency Traumatic Medical History: Reports: None Hematology: Denies: Anemia, Bleeding Tendencies Infectious Medical History: Reports: None Past Surgical History Past Surgical History: Reports: Section, Cholecystectomy Social History Information Source: Patient Lives with: Parents Smoking Status: Never Smoker Frequency of Alcohol Use: None Hx Recreational Drug Use: Yes Drugs: Marijuana Hx Prescription Drug Abuse: No - Advance Directive Resuscitation Status: Full Code Surrogate healthcare decision maker:: Jeannette Polanco Family History Family History: CAD, DM, Hypertension, Malignancy, Other - Psychiatric illnesses Parental Family History Reviewed: Yes Children Family History Reviewed: No Sibling(s) Family History Reviewed.: Yes Medication/Allergy Home Medications: Doxycycline Monohydrate 100 mg PO BID 10 Days #20 tablet 10/30/18 Etonogestrel [Nexplanon] 68 mg SQ DAILY 10/30/18 Naproxen [Naprosyn] 500 mg PO BID #20 tablet 10/30/18 Allergies/Adverse Reactions: amoxicillin [Amoxicillin] Allergy (Verified 11/23/18 18:23) Anaphylaxis cefuroxime axetil [From Ceftin] Allergy (Verified 11/23/18 18:23) VERY HYPERACTIVE ciprofloxacin [From Cipro] Allergy (Verified 11/23/18 18:23) Anaphylaxis ciprofloxacin HCl [From Cipro] Allergy (Verified 11/23/18 18:23) Anaphylaxis Review of Systems Constitutional: PRESENT: as per HPI, chills, fever(s), headache(s) Eyes: ABSENT: visual disturbances, other - Eye pain Ears: ABSENT: hearing changes, other - Ear pain Nose, Mouth, and Throat: ABSENT: mouth pain, sore throat Cardiovascular: ABSENT: chest pain, palpitations Respiratory: ABSENT: cough, dyspnea Gastrointestinal: PRESENT: diarrhea, nausea, vomiting. ABSENT: abdominal pain, constipation Genitourinary: PRESENT: as per HPI, other - Urinary urgency, urinary frequency, right flank pain. ABSENT: dysuria, hematuria Musculoskeletal: ABSENT: back pain, joint swelling, muscle weakness Integumentary: ABSENT: pruritus, rash Neurological: ABSENT: confusion, convulsions, focal weakness, memory loss, syncope Psychiatric: ABSENT: anxiety, depression Endocrine: ABSENT: cold intolerance, heat intolerance Hematologic/Lymphatic: ABSENT: easy bleeding, easy bruising Physical Exam Vital Signs: Temp Pulse Resp BP Pulse Ox 99.6 F 136 H 14 121/66 100 11/23/18 20:37 11/23/18 18:18 11/23/18 20:16 11/23/18 20:16 11/23/18 20:16 Intake & Output 11/21/18 11/22/18 11/23/18 23:59 23:59 23:59 Intake Total 2100 Balance 2100 Weight 83.5 kg General appearance: PRESENT: no acute distress, cooperative Head exam: PRESENT: atraumatic, normocephalic Eye exam: PRESENT: conjunctiva pink. ABSENT: conjunctival injection, scleral icterus Ear exam: PRESENT: normal external ear exam. ABSENT: bleeding, drainage Mouth exam: PRESENT: dry mucosa, neck supple Neck exam: ABSENT: JVD, thyromegaly, tracheal deviation Respiratory exam: PRESENT: clear to auscultation geremias, symmetrical, unlabored Cardiovascular exam: PRESENT: RRR. ABSENT: clicks, gallop, rubs Pulses: PRESENT: normal radial pulses, normal dorsalis pedis pul Vascular exam: PRESENT: normal capillary refill. ABSENT: pallor GI/Abdominal exam: PRESENT: normal bowel sounds, soft, tenderness - Moderate right flank tenderness to palpation Rectal exam: PRESENT: deferred Extremities exam: ABSENT: joint swelling, pedal edema Musculoskeletal exam: PRESENT: full ROM, normal inspection. ABSENT: tenderness Neurological exam: PRESENT: alert, oriented to person, oriented to place, oriented to time, oriented to situation, CN II-XII grossly intact. ABSENT: motor sensory deficit Psychiatric exam: PRESENT: appropriate affect, normal mood Skin exam: PRESENT: dry, intact, warm. ABSENT: jaundice, rash, urticaria Results Laboratory Results: 11/23/18 18:45 11/23/18 18:45 11/23/18 11/23/18 11/23/18 18:45 18:45 18:45 WBC 18.7 H RBC 4.83 Hgb 14.4 Hct 42.8 MCV 89 MCH 29.7 MCHC 33.6 RDW 13.3 Plt Count 290 Seg Neutrophils % 89.5 H Lymphocytes % 3.0 L Monocytes % 6.9 Eosinophils % 0.0 Basophils % 0.6 Absolute Neutrophils 16.7 H Absolute Lymphocytes 0.6 Absolute Monocytes 1.3 Absolute Eosinophils 0.0 Absolute Basophils 0.1 VBG pH VBG pCO2 VBG HCO3 VBG Base Excess Sodium 137.2 Potassium 4.1 Chloride 100 Carbon Dioxide 22 Anion Gap 15 BUN 18 Creatinine 0.81 Est GFR ( Amer) > 60 Est GFR (Non-Af Amer) > 60 Glucose 154 H Lactic Acid 2.1 Calcium 10.3 H Total Bilirubin 0.8 AST 25 ALT 24 Alkaline Phosphatase 123 Total Protein 7.8 Albumin 4.3 Serum HCG, Qual Urine Color Urine Appearance Urine pH Ur Specific [place] Urine Protein Urine Glucose (UA) Urine Ketones Urine Blood Urine Nitrite Ur Leukocyte Esterase Urine WBC (Auto) Urine RBC (Auto) 11/23/18 11/23/18 11/23/18 18:45 18:45 20:28 WBC RBC Hgb Hct MCV MCH MCHC RDW Plt Count Seg Neutrophils % Lymphocytes % Monocytes % Eosinophils % Basophils % Absolute Neutrophils Absolute Lymphocytes Absolute Monocytes Absolute Eosinophils Absolute Basophils VBG pH 7.55 H VBG pCO2 24.0 L VBG HCO3 20.5 VBG Base Excess 0.3 Sodium Potassium Chloride Carbon Dioxide Anion Gap BUN Creatinine Est GFR ( Amer) Est GFR (Non-Af Amer) Glucose Lactic Acid Calcium Total Bilirubin AST ALT Alkaline Phosphatase Total Protein Albumin Serum HCG, Qual NEGATIVE Urine Color SHAUNA Urine Appearance SLIGHTLY-CLOUDY Urine pH 5.0 Ur Specific [place] 1.027 Urine Protein 100 H Urine Glucose (UA) NEGATIVE Urine Ketones TRACE H Urine Blood NEGATIVE Urine Nitrite NEGATIVE Ur Leukocyte Esterase MODERATE H Urine WBC (Auto) 87 Urine RBC (Auto) 13 Impressions: Chest X-Ray 11/23/18 18:32 IMPRESSION: NO SIGNIFICANT RADIOGRAPHIC FINDING IN THE CHEST. Abdomen/Pelvis CT 11/23/18 20:25 IMPRESSION: Findings consistent with right pyelonephritis. Assessment and Plan - Diagnosis (1) Pyelonephritis, acute Is this a current diagnosis for this admission?: Yes Plan: Patient's pyelonephritis be treated with meropenem initially pending urine c ulture results. The right flank pain will be treated with morphine sulfate 2 to 4 mg IV every 2 hours on a as needed basis via sliding scale. Patient will also receive supplemental IV fluids and other supportive and symptomatic cares as required. Patient's pyelonephritis to be monitored with a daily CBC, metabolic profile and magnesium level. (2) Intractable nausea and vomiting Qualifiers: Vomiting type: unspecified Qualified Code(s): R11.2 - Nausea with vomiting, unspecified Is this a current diagnosis for this admission?: Yes Plan: Patient receive IV fluids and IV Reglan as needed for control of nausea and vomiting. (3) Leukocytosis Qualifiers: Leukocytosis type: unspecified Qualified Code(s): D72.829 - Elevated white blood cell count, unspecified Is this a current diagnosis for this admission?: Yes Plan: Patient's leukocytosis be monitored with a daily CBC. (4) Hyperglycemia, unspecified Is this a current diagnosis for this admission?: Yes Plan: Patient's hyperglycemia will be evaluated with a daily metabolic profile and hemoglobin A1c will be obtained. - Time Time Spent with patient: 25-34 minutes Medications reviewed and adjusted accordingly: Yes Anticipated discharge: Home - Inpatient Certification Based on my medical assessment, after consideration of the patient's comorbidities, presenting symptoms, or acuity I expect that the services needed warrant INPATIENT care.: Yes I certify that my determination is in accordance with my understanding of Medicare's requirements for reasonable and necessary INPATIENT services [42 CFR 412.3e].: Yes Medical Necessity: Need Close Monitoring Due to Risk of Patient Decompensation, Need For IV Fluids, Need for Pain Control, Need for IV Antibiotics, Risk of Complication if Not Cared For in Hospital
--- NOTE | 2018-11-24 03:49 | ADVANCED CARE ---
- Diagnosis (1) Pyelonephritis, acute Diagnosis Current: Yes (2) Intractable nausea and vomiting Diagnosis Current: Yes (3) Leukocytosis Diagnosis Current: Yes (4) Hyperglycemia, unspecified Diagnosis Current: Yes Attendance: Patient and myself. Resuscitation Status: Full Code Discussion: Patient chooses to remain full code resuscitation status for any respiratory or cardiac arrest. Her during this hospital stay. Additionally she has named Jeannette Polanco as her designated surrogate medical decision-maker. Care Planning Goals: 1. Patient will be full CODE STATUS for this admission. 2. Jeannette Mastimremigio is the patient's designated surrogate medical decision-maker. Document(s) Completed: Following information be entered in patient's permanent medical record as well as her current medical record and orders via EMR entry: 1. Patient will be full CODE STATUS for this admission. 2. Jeannette Polanco is the patient's designated surrogate medical decision-maker. Time Spent: 5 minutes
[2018-11-24] MEDS: HEPARIN SOD (PORCINE) 5,000 UNIT/ML 1 ML SYRINGE SUBCUT SCH ×3 (05:51→21:30)
[2018-11-24 07:24] LABS: HEMATOCRIT 32.4 % (36.0-47.0); MEAN CORPUSCULAR HGB CONC 33.9 g/dL (32.0-36.0); MEAN CORPUSCULAR VOLUME 89 fl (80-97); PLATELET COUNT 201 10^3/uL (150-450); RED BLOOD COUNT 3.66 10^6/uL (3.72-5.28); RED CELL DISTRIBUTION WIDTH 13.3 % (11.5-14.0); WHITE BLOOD COUNT 12.6 10^3/uL (4.0-10.5)
[2018-11-24 07:33] LABS: ANION GAP 9 (5-19); BLOOD UREA NITROGEN 8 mg/dL (7-20); CALCIUM 7.9 mg/dL (8.4-10.2); CARBON DIOXIDE 19 mmol/L (22-30); CHLORIDE 107 mmol/L (98-107); CHOLESTEROL 94.88 mg/dL (0-200); GLUCOSE 100 mg/dL (75-110); POTASSIUM 3.8 mmol/L (3.6-5.0); SODIUM 134.6 mmol/L (137-145); TRIGLYCERIDES 92 mg/dL (<150)
[2018-11-24 07:45] LABS: DIRECT LDL 48 mg/dL (<100)
[2018-11-24] MEDS: DOCUSATE SODIUM 100 MG/10 ML UDC PO SCH ×2 (11:09→17:36)
[2018-11-24] MEDS: FAMOTIDINE INJ/PF 20 MG/2 ML SDV IV SCH ×2 (11:15→21:31)
[2018-11-24] MEDS ORDERED: NITROFURANTOIN MONOHYD/M-CRYST 100 MG CAPSULE PO SCH (11:30)
[2018-11-24] MEDS ORDERED: DIPHENHYDRAMINE HCL 25 MG CAPSULE PO PRN (11:47)
[2018-11-24] MEDS ORDERED: TRAMADOL HCL 50 MG TABLET PO PRN (13:02)
[2018-11-24] MEDS ORDERED: ACETAMINOPHEN 325 MG TABLET PO PRN (13:02)
[2018-11-24] MEDS ORDERED: ONDANSETRON 4 MG TAB.RAPDIS PO PRN (13:08)
[2018-11-24] MEDS ORDERED: MEROPENEM 1 GM VIAL IV SCH (13:13)
[2018-11-24] MEDS ORDERED: SUMATRIPTAN SUCCINATE 50 MG TABLET PO PRN (13:30)
[2018-11-24] MEDS: PROMETHAZINE HCL INJ 25 MG/1 ML VIAL IV PRN (13:44)
[2018-11-24] MEDS: KETOROLAC TROMETHAMINE INJ/PF 30 MG/1 ML SDV IV PRN (13:49)
[2018-11-24] MEDS ORDERED: ACETAMINOPHEN 325 MG TABLET PO ONE (14:00)
[2018-11-24] MEDS ORDERED: SUMATRIPTAN SUCCINATE 50 MG TABLET PO ONE (14:00)
[2018-11-24] MEDS: DIPHENHYDRAMINE HCL 50 MG/ML VIAL IV PRN (14:33)
[2018-11-24] MEDS: MEROPENEM 1 GM VIAL IV SCH ×2 (14:42→14:45)
[2018-11-24] MEDS ORDERED: SUMATRIPTAN SUCCINATE INJ/PF 6 MG/0.5 ML SDV SUBCUT ONE (15:00)
[2018-11-24] MEDS: MEROPENEM 1 GM in NORMAL SALINE 50 ML IV SCH (15:55)
--- NOTE | 2018-11-24 16:16 | PDOC PROGRESS REPORT ---
Subjective Progress Note for:: 11/24/18 Subjective:: patient is having episodes of nausea and vomiting. cva tenderness on right side. headache x 3 days now. family is concerned. culture from previous ed visit showed that uti resistant to bactrim. 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 abx options reviewed with pharmacist and felt that meropenem was safest option. mom could not recall rxns to pcn/cephlasporins. Reason For Visit: ACUTE RIGHT PYELONEPHRITIS Physical Exam Vital Signs: Temp Pulse Resp BP Pulse Ox 100.9 F H 93 17 117/66 99 11/24/18 11:09 11/24/18 11:09 11/24/18 11:09 11/24/18 11:09 11/24/18 11:09 Intake & Output 11/23/18 11/24/18 11/25/18 06:59 06:59 06:59 Intake Total 3644 2400 Balance 3644 2400 Weight 86.6 kg General appearance: PRESENT: no acute distress, well-developed, well-nourished Head exam: PRESENT: atraumatic, normocephalic Eye exam: PRESENT: conjunctiva pink, EOMI, PERRLA. ABSENT: scleral icterus Ear exam: PRESENT: normal external ear exam Mouth exam: PRESENT: moist, tongue midline Neck exam: ABSENT: carotid bruit, JVD, lymphadenopathy, thyromegaly Respiratory exam: PRESENT: clear to auscultation geremias. ABSENT: rales, rhonchi, wheezes Cardiovascular exam: PRESENT: RRR. ABSENT: diastolic murmur, rubs, systolic murmur Pulses: PRESENT: normal dorsalis pedis pul Vascular exam: PRESENT: normal capillary refill GI/Abdominal exam: PRESENT: normal bowel sounds, soft, other - right sided tenderness (cva). ABSENT: distended, guarding, mass, organolmegaly, rebound, tenderness Rectal exam: PRESENT: deferred Extremities exam: PRESENT: full ROM. ABSENT: calf tenderness, clubbing, pedal edema Neurological exam: PRESENT: alert, awake, oriented to person, oriented to place, oriented to time, oriented to situation, CN II-XII grossly intact. ABSENT: motor sensory deficit Psychiatric exam: PRESENT: appropriate affect, normal mood. ABSENT: homicidal ideation, suicidal ideation Skin exam: PRESENT: dry, intact, warm. ABSENT: cyanosis, rash Results Laboratory Results: 11/24/18 06:05 11/24/18 06:05 11/23/18 11/23/18 11/23/18 18:45 18:45 18:45 WBC 18.7 H RBC 4.83 Hgb 14.4 Hct 42.8 MCV 89 MCH 29.7 MCHC 33.6 RDW 13.3 Plt Count 290 Seg Neutrophils % 89.5 H Lymphocytes % 3.0 L Monocytes % 6.9 Eosinophils % 0.0 Basophils % 0.6 Absolute Neutrophils 16.7 H Absolute Lymphocytes 0.6 Absolute Monocytes 1.3 Absolute Eosinophils 0.0 Absolute Basophils 0.1 VBG pH VBG pCO2 VBG HCO3 VBG Base Excess Sodium 137.2 Potassium 4.1 Chloride 100 Carbon Dioxide 22 Anion Gap 15 BUN 18 Creatinine 0.81 Est GFR ( Amer) > 60 Est GFR (Non-Af Amer) > 60 Glucose 154 H Lactic Acid 2.1 Calcium 10.3 H Magnesium Total Bilirubin 0.8 AST 25 ALT 24 Alkaline Phosphatase 123 Total Protein 7.8 Albumin 4.3 Triglycerides Cholesterol LDL Cholesterol Direct VLDL Cholesterol HDL Cholesterol TSH Free T4 Free T3 pg/mL Serum HCG, Qual Urine Color Urine Appearance Urine pH Ur Specific [place] Urine Protein Urine Glucose (UA) Urine Ketones Urine Blood Urine Nitrite Ur Leukocyte Esterase Urine WBC (Auto) Urine RBC (Auto) 11/23/18 11/23/18 11/23/18 18:45 18:45 18:54 WBC RBC Hgb Hct MCV MCH MCHC RDW Plt Count Seg Neutrophils % Lymphocytes % Monocytes % Eosinophils % Basophils % Absolute Neutrophils Absolute Lymphocytes Absolute Monocytes Absolute Eosinophils Absolute Basophils VBG pH 7.55 H VBG pCO2 24.0 L VBG HCO3 20.5 VBG Base Excess 0.3 Sodium Potassium Chloride Carbon Dioxide Anion Gap BUN Creatinine Est GFR ( Amer) Est GFR (Non-Af Amer) Glucose Lactic Acid Calcium Magnesium Total Bilirubin AST ALT Alkaline Phosphatase Total Protein Albumin Triglycerides Cholesterol LDL Cholesterol Direct VLDL Cholesterol HDL Cholesterol TSH 2.11 Free T4 1.72 Free T3 pg/mL 5.22 Serum HCG, Qual NEGATIVE Urine Color Urine Appearance Urine pH Ur Specific [place] Urine Protein Urine Glucose (UA) Urine Ketones Urine Blood Urine Nitrite Ur Leukocyte Esterase Urine WBC (Auto) Urine RBC (Auto) 11/23/18 11/23/18 11/24/18 20:28 23:20 06:05 WBC 12.6 H RBC 3.66 L Hgb 11.0 L D Hct 32.4 L MCV 89 MCH 30.0 MCHC 33.9 RDW 13.3 Plt Count 201 Seg Neutrophils % Lymphocytes % Monocytes % Eosinophils % Basophils % Absolute Neutrophils Absolute Lymphocytes Absolute Monocytes Absolute Eosinophils Absolute Basophils VBG pH VBG pCO2 VBG HCO3 VBG Base Excess Sodium Potassium Chloride Carbon Dioxide Anion Gap BUN Creatinine Est GFR ( Amer) Est GFR (Non-Af Amer) Glucose Lactic Acid 1.2 Calcium Magnesium Total Bilirubin AST ALT Alkaline Phosphatase Total Protein Albumin Triglycerides Cholesterol LDL Cholesterol Direct VLDL Cholesterol HDL Cholesterol TSH Free T4 Free T3 pg/mL Serum HCG, Qual Urine Color SHAUNA Urine Appearance SLIGHTLY-CLOUDY Urine pH 5.0 Ur Specific [place] 1.027 Urine Protein 100 H Urine Glucose (UA) NEGATIVE Urine Ketones TRACE H Urine Blood NEGATIVE Urine Nitrite NEGATIVE Ur Leukocyte Esterase MODERATE H Urine WBC (Auto) 87 Urine RBC (Auto) 13 11/24/18 06:05 WBC RBC Hgb Hct MCV MCH MCHC RDW Plt Count Seg Neutrophils % Lymphocytes % Monocytes % Eosinophils % Basophils % Absolute Neutrophils Absolute Lymphocytes Absolute Monocytes Absolute Eosinophils Absolute Basophils VBG pH VBG pCO2 VBG HCO3 VBG Base Excess Sodium 134.6 L Potassium 3.8 Chloride 107 Carbon Dioxide 19 L Anion Gap 9 BUN 8 Creatinine 0.65 Est GFR ( Amer) > 60 Est GFR (Non-Af Amer) > 60 Glucose 100 Lactic Acid Calcium 7.9 L Magnesium 1.6 Total Bilirubin AST ALT Alkaline Phosphatase Total Protein Albumin Triglycerides 92 Cholesterol 94.88 LDL Cholesterol Direct 48 VLDL Cholesterol 18.0 HDL Cholesterol 25 L TSH Free T4 Free T3 pg/mL Serum HCG, Qual Urine Color Urine Appearance Urine pH Ur Specific [place] Urine Protein Urine Glucose (UA) Urine Ketones Urine Blood Urine Nitrite Ur Leukocyte Esterase Urine WBC (Auto) Urine RBC (Auto) Impressions: Chest X-Ray 11/23/18 18:32 IMPRESSION: NO SIGNIFICANT RADIOGRAPHIC FINDING IN THE CHEST. Abdomen/Pelvis CT 11/23/18 20:25 IMPRESSION: Findings consistent with right pyelonephritis. Assessment and Plan - Diagnosis (1) Cluster B personality disorder in adult Is this a current diagnosis for this admission?: Yes Plan: suspected. not official dx. should see psych o/p (2) Migraine Qualifiers: Migraine type: unspecified Is this a current diagnosis for this admission?: Yes Plan: per patient. started on prn imitrex, tylenol, toradol x 5 days, tramadol, zofran, phenergan. reports not in her previous distribution. CT head. (3) Pyelonephritis of right kidney Is this a current diagnosis for this admission?: Yes Plan: started on meropenem 11/24. she cannot take oral meds at this time. limited options with allergies. case discussed with pharmacy. BC pending (4) THC use in Is this a current diagnosis for this admission?: No Plan: watch for withdrawal symptoms, hallucinations, outburst - Time Time Spent with patient: 15-24 minutes Medications reviewed and adjusted accordingly: Yes Anticipated discharge: Home - Inpatient Certification Based on my medical assessment, after consideration of the patient's comorbidities, presenting symptoms, or acuity I expect that the services needed warrant INPATIENT care.: Yes I certify that my determination is in accordance with my understanding of Medicare's requirements for reasonable and necessary INPATIENT services [42 CFR 412.3e].: Yes - Plan Summary Plan Summary: iv abx -> po abx -> home
--- NOTE | 2018-11-24 18:54 | RADIOLOGY REPORT (SQ) ---
EXAM DESCRIPTION: CT HEAD WITHOUT COMPLETED DATE/TIME: 11/24/2018 6:20 pm REASON FOR STUDY: PEÑA not in normal migraine distribution COMPARISON: None. TECHNIQUE: Axial images acquired through the brain without intravenous contrast. Images reviewed wit h bone, brain and subdural windows. Images stored on PACS. All CT scanners at this facility use dose modulation, iterative reconstruction, and/or weight based d osing when appropriate to reduce radiation dose to as low as reasonably achievable (ALARA). [facility]: Dose Right [facility]: CareDose [facility]: Dose Right [facility]: Teradose 4D [facility]: [employer] RADIATION DOSE: CT Rad equipment meets quality standard of care and radiation dose reduction techniq ues were employed. CTDIvol: 53.2 mGy. DLP: 964 mGy-cm.. LIMITATIONS: None. FINDINGS: VENTRICLES: Normal size and contour. CEREBRUM: No masses. No hemorrhage. No midline shift. Age appropriate white matter. No evidence for a cute infarction. CEREBELLUM: No masses. No hemorrhage. No alteration of density. No evidence for acute infarction. EXTRA-AXIAL SPACES: No fluid collections. ORBITS AND GLOBE: No intra- or extraconal masses. Normal contour of globe without masses. CALVARIUM: No fracture. PARANASAL SINUSES: No fluid or mucosal thickening. SOFT TISSUES: No mass or hematoma. OTHER: No other significant finding. IMPRESSION: NO ACUTE INTRACRANIAL FINDINGS. EVIDENCE OF ACUTE STROKE: NO. TECHNICAL DOCUMENTATION: JOB ID: [id number] Quality ID # [id number]: Final reports with documentation of one or more dose reduction techniques (e.g., Au tomated exposure control, adjustment of the mA and/or kV according to patient size, use of iterative reconstruction technique) 2010 [employer]- All Rights Reserved Reading location - IP/workstation name: [email or web address]
[2018-11-25] MEDS: DIPHENHYDRAMINE HCL 50 MG/ML VIAL IV PRN ×2 (02:06→15:30)
[2018-11-25] MEDS: MEROPENEM 1 GM in NORMAL SALINE 50 ML IV SCH ×2 (03:20→15:29)
[2018-11-25] MEDS: KETOROLAC TROMETHAMINE INJ/PF 30 MG/1 ML SDV IV PRN (06:13)
[2018-11-25] MEDS: ACETAMINOPHEN 325 MG TABLET PO PRN ×2 (06:16→10:50)
[2018-11-25 06:26] LABS: HEMATOCRIT 32.2 % (36.0-47.0); MEAN CORPUSCULAR HEMOGLOBIN 30.2 pg (27.0-33.4); MEAN CORPUSCULAR HGB CONC 34.1 g/dL (32.0-36.0); MEAN CORPUSCULAR VOLUME 89 fl (80-97); PLATELET COUNT 187 10^3/uL (150-450); RED BLOOD COUNT 3.63 10^6/uL (3.72-5.28); RED CELL DISTRIBUTION WIDTH 13.5 % (11.5-14.0); WHITE BLOOD COUNT 10.2 10^3/uL (4.0-10.5)
[2018-11-25] MEDS: PROMETHAZINE HCL INJ 25 MG/1 ML VIAL IV PRN (06:27)
[2018-11-25] MEDS: HEPARIN SOD (PORCINE) 5,000 UNIT/ML 1 ML SYRINGE SUBCUT SCH ×3 (06:36→21:28)
[2018-11-25 06:51] LABS: ALANINE AMINOTRANSFERASE 38 U/L (9-52); ALBUMIN 2.9 g/dL (3.5-5.0); ALKALINE PHOSPHATASE 91 U/L (38-126); ANION GAP 11 (5-19); ASPARTATE AMINO TRANSFERASE 30 U/L (14-36); BILIRUBIN,DIRECT 0.3 mg/dL (0.0-0.4); BILIRUBIN,TOTAL 0.3 mg/dL (0.2-1.3); BLOOD UREA NITROGEN 8 mg/dL (7-20); CALCIUM 8.4 mg/dL (8.4-10.2); CARBON DIOXIDE 19 mmol/L (22-30); CHLORIDE 106 mmol/L (98-107); GLUCOSE 116 mg/dL (75-110); POTASSIUM 3.8 mmol/L (3.6-5.0); SODIUM 135.7 mmol/L (137-145); TOTAL PROTEIN 5.3 g/dL (6.3-8.2)
[2018-11-25] MEDS ORDERED: SUMATRIPTAN SUCCINATE INJ/PF 6 MG/0.5 ML SDV SUBCUT PRN (07:00)
[2018-11-25] MEDS: DOCUSATE SODIUM 100 MG/10 ML UDC PO SCH ×3 (10:35→15:52)
[2018-11-25] MEDS: FAMOTIDINE INJ/PF 20 MG/2 ML SDV IV SCH ×2 (10:42→21:29)
[2018-11-25] MEDS ORDERED: DOCUSATE SODIUM 100 MG CAPSULE PO ONE (14:30)
[2018-11-25] MEDS ORDERED: NAPROXEN 375 MG TABLET PO ONE (15:30)
--- NOTE | 2018-11-25 16:07 | PDOC PROGRESS REPORT ---
Subjective Progress Note for:: 11/25/18 Subjective:: Overall feels better, nausea and vomiting are improved and she can keep down food now. She is also making decent amount of urine. No hematuria. Patient tells me that she has a frontal headache. She has a history of migraines and has been on Imitrex for a day or so and the headache persists. Toradol is not helping. She tells me that she drinks excessive amounts of caffeine in the form of Mountain Dew which she stopped drinking several days ago when she started having nausea and vomiting related to her pyelonephritis. Reason For Visit: ACUTE RIGHT PYELONEPHRITIS Physical Exam Vital Signs: Temp Pulse Resp BP Pulse Ox 98.3 F 74 13 124/67 99 11/25/18 11:47 11/25/18 11:47 11/25/18 11:47 11/25/18 11:47 11/25/18 11:47 Intake & Output 11/24/18 11/25/18 11/26/18 06:59 06:59 06:59 Intake Total 3644 2766 Balance 3644 2766 Weight 86.6 kg 89.1 kg General appearance: PRESENT: no acute distress, cooperative Head exam: PRESENT: atraumatic, normocephalic Eye exam: PRESENT: EOMI. ABSENT: conjunctival injection, scleral icterus Ear exam: PRESENT: normal external ear exam Mouth exam: PRESENT: moist, neck supple Neck exam: ABSENT: lymphadenopathy Respiratory exam: PRESENT: clear to auscultation geremias, unlabored. ABSENT: rales, rhonchi, wheezes Cardiovascular exam: PRESENT: RRR. ABSENT: systolic murmur Pulses: PRESENT: normal radial pulses GI/Abdominal exam: PRESENT: normal bowel sounds, soft. ABSENT: distended, firm, guarding, tenderness Rectal exam: PRESENT: deferred Gentrourinary exam: PRESENT: other - Right CVA tenderness to palpation Extremities exam: ABSENT: joint swelling, pedal edema Musculoskeletal exam: PRESENT: ambulatory. ABSENT: deformity Neurological exam: PRESENT: alert, awake, oriented to person, oriented to place, oriented to situation, CN II-XII grossly intact Psychiatric exam: PRESENT: agitated, appropriate affect Skin exam: PRESENT: dry, intact, warm Results Laboratory Results: 11/25/18 06:17 11/25/18 06:17 07/13/19 07/13/19 06:17 06:17 WBC 10.2 RBC 3.63 L Hgb 11.0 L Hct 32.2 L MCV 89 MCH 30.2 MCHC 34.1 RDW 13.5 Plt Count 187 Sodium 135.7 L Potassium 3.8 Chloride 106 Carbon Dioxide 19 L Anion Gap 11 BUN 8 Creatinine 0.57 Est GFR ( Amer) > 60 Est GFR (Non-Af Amer) > 60 Glucose 116 H Calcium 8.4 Magnesium 1.8 Total Bilirubin 0.3 AST 30 ALT 38 Alkaline Phosphatase 91 Total Protein 5.3 L Albumin 2.9 L 11/23/18 20:28 Clean Catch Midstream Urine Culture - Final Escherichia Coli Impressions: Chest X-Ray 11/23/18 18:32 IMPRESSION: NO SIGNIFICANT RADIOGRAPHIC FINDING IN THE CHEST. Abdomen/Pelvis CT 11/23/18 20:25 IMPRESSION: Findings consistent with right pyelonephritis. Head CT 11/24/18 00:00 IMPRESSION: NO ACUTE INTRACRANIAL FINDINGS. EVIDENCE OF ACUTE STROKE: NO. Assessment and Plan - Diagnosis (1) Pyelonephritis of right kidney Is this a current diagnosis for this admission?: Yes Plan: Patient's urine culture came back showing pansensitive E. coli. Imaging showed right pyelonephritis. Overall she is improving. No N/V as of this am and so is now eating. I will cont IV fluids overnight and reeval in the am. She has ci pro and cephalosporin allergies. N other po agent that looks sufficeint for her infection. I will cont merem and will consider out pt IV hoem antibiotics, consider call to ID prior. (2) Headache Is this a current diagnosis for this admission?: Yes Plan: She does have a history of migraines. Imitrex has been minorly helpful. I think the patient is having a significant caffeine withdrawal headache and now that she is eating and drinking her mother will start bringing her Mountain Dew which she drinks regularly. We will see how this goes, will continue IV fluid hydration. I have also ordered 1 dose of Aleve as she states this does help her with headaches, if it helps we can give her a few more doses. (3) Leukocytosis Qualifiers: Leukocytosis type: unspecified Qualified Code(s): D72.829 - Elevated white blood cell count, unspecified Is this a current diagnosis for this admission?: Yes Plan: White count has improved from 18 down to 10 today. It was related to the acute pyelonephritis. See treatment plan above. (4) UTI (urinary tract infection) Qualifiers: Urinary tract infection type: acute cystitis Hematuria presence: without hematuria Qualified Code(s): N30.00 - Acute cystitis without hematuria Is this a current diagnosis for this admission?: Yes Plan: With E. coli, pansensitive. Please see treatment plan above. - Time Time Spent with patient: 35 or more minutes Medications reviewed and adjusted accordingly: Yes Anticipated discharge: Home - Inpatient Certification Based on my medical assessment, after consideration of the patient's comorbidities, presenting symptoms, or acuity I expect that the services needed warrant INPATIENT care.: Yes I certify that my determination is in accordance with my understanding of Medicare's requirements for reasonable and necessary INPATIENT services [42 CFR 412.3e].: Yes Medical Necessity: Need for IV Antibiotics
[2018-11-25] MEDS: RINGERS SOLUTION,LACTATED 1,000 ML IV PRN (16:41)
[2018-11-25] MEDS: DOCUSATE SODIUM 100 MG CAPSULE PO SCH (18:36)
[2018-11-25] MEDS ORDERED: LORAZEPAM INJ 2 MG/1 ML VIAL IV PRN (20:24)
[2018-11-26] MEDS: DIPHENHYDRAMINE HCL 50 MG/ML VIAL IV PRN ×2 (02:22→14:04)
[2018-11-26] MEDS: MEROPENEM 1 GM in NORMAL SALINE 50 ML IV SCH ×2 (03:37→15:16)
[2018-11-26] MEDS: HEPARIN SOD (PORCINE) 5,000 UNIT/ML 1 ML SYRINGE SUBCUT SCH ×3 (05:40→22:01)
[2018-11-26 06:52] LABS: HEMATOCRIT 32.1 % (36.0-47.0); HEMOGLOBIN 10.9 g/dL (12.0-15.5); MEAN CORPUSCULAR HEMOGLOBIN 30.3 pg (27.0-33.4); MEAN CORPUSCULAR HGB CONC 34.1 g/dL (32.0-36.0); MEAN CORPUSCULAR VOLUME 89 fl (80-97); PLATELET COUNT 225 10^3/uL (150-450); RED BLOOD COUNT 3.62 10^6/uL (3.72-5.28); RED CELL DISTRIBUTION WIDTH 13.3 % (11.5-14.0); WHITE BLOOD COUNT 7.3 10^3/uL (4.0-10.5)
[2018-11-26 07:25] LABS: ANION GAP 7 (5-19); BLOOD UREA NITROGEN 6 mg/dL (7-20); CALCIUM 8.4 mg/dL (8.4-10.2); CARBON DIOXIDE 23 mmol/L (22-30); CHLORIDE 109 mmol/L (98-107); GLUCOSE 89 mg/dL (75-110); POTASSIUM 4.3 mmol/L (3.6-5.0); SODIUM 138.6 mmol/L (137-145)
[2018-11-26] MEDS: DOCUSATE SODIUM 100 MG CAPSULE PO SCH ×2 (09:02→17:59)
[2018-11-26] MEDS ORDERED: HYDROXYZINE PAMOATE 25 MG CAPSULE PO PRN (09:07)
[2018-11-26] MEDS: FAMOTIDINE INJ/PF 20 MG/2 ML SDV IV SCH (09:08)
[2018-11-26] MEDS: LORAZEPAM 1 MG TABLET PO PRN ×2 (09:15→22:01)
[2018-11-26] MEDS ORDERED: NAPROXEN 375 MG TABLET PO ONE (09:30)
[2018-11-26] MEDS ORDERED: ESCITALOPRAM OXALATE 10 MG TABLET PO SCH (10:00)
--- NOTE | 2018-11-26 18:43 | PDOC PROGRESS REPORT ---
Subjective Progress Note for:: 11/26/18 Subjective:: She feels a lot better today. Her CVA tenderness is almost completely gone. Headache is much improved. She is able to eat and drink without difficulty though a little bit of mild nausea persists. Has some back aching but she thinks that is from being sedentary and lying in the bed. No chills that she did have a low-grade fever yesterday. Reason For Visit: ACUTE RIGHT PYELONEPHRITIS Physical Exam Vital Signs: Temp Pulse Resp BP Pulse Ox 98.6 F 73 16 143/96 H 100 11/26/18 11:53 11/26/18 11:53 11/26/18 11:53 11/26/18 11:53 11/26/18 11:53 Intake & Output 11/25/18 11/26/18 11/27/18 06:59 06:59 06:59 Intake Total 2766 1215 50 Balance 2766 1215 50 Weight 89.1 kg General appearance: PRESENT: no acute distress, cooperative Head exam: ABSENT: normocephalic Eye exam: PRESENT: EOMI. ABSENT: conjunctival injection, scleral icterus Mouth exam: PRESENT: moist, tongue midline Neck exam: ABSENT: tracheostomy Respiratory exam: PRESENT: clear to auscultation geremias, unlabored. ABSENT: rales, rhonchi Cardiovascular exam: PRESENT: RRR. ABSENT: systolic murmur GI/Abdominal exam: PRESENT: normal bowel sounds, soft. ABSENT: distended, tenderness Rectal exam: PRESENT: deferred Gentrourinary exam: PRESENT: other - Right CVA tenderness Musculoskeletal exam: PRESENT: ambulatory, normal inspection Neurological exam: PRESENT: alert, awake, oriented to person, oriented to place, oriented to situation, CN II-XII grossly intact Psychiatric exam: PRESENT: anxious Skin exam: PRESENT: dry, intact, warm Results Laboratory Results: 11/26/18 05:40 11/26/18 05:40 11/26/18 11/26/18 05:40 05:40 WBC 7.3 RBC 3.62 L Hgb 10.9 L Hct 32.1 L MCV 89 MCH 30.3 MCHC 34.1 RDW 13.3 Plt Count 225 Sodium 138.6 Potassium 4.3 Chloride 109 H Carbon Dioxide 23 Anion Gap 7 BUN 6 L Creatinine 0.55 Est GFR ( Amer) > 60 Est GFR (Non-Af Amer) > 60 Glucose 89 Calcium 8.4 Magnesium 1.9 Impressions: Chest X-Ray 11/23/18 18:32 IMPRESSION: NO SIGNIFICANT RADIOGRAPHIC FINDING IN THE CHEST. Abdomen/Pelvis CT 11/23/18 20:25 IMPRESSION: Findings consistent with right pyelonephritis. Head CT 11/24/18 00:00 IMPRESSION: NO ACUTE INTRACRANIAL FINDINGS. EVIDENCE OF ACUTE STROKE: NO. Assessment and Plan - Diagnosis (1) Pyelonephritis of right kidney Is this a current diagnosis for this admission?: Yes Plan: Signs and symptoms are improving. To new her meropenem twice daily. I have talked to the pharmacist today to ask for an ID evaluation to see if there is an oral option for this patient's discharge plan, given her multiple antibiotic allergies and the urine culture results. Also spoke with the machine adjuster leader case trim about the possibility of discharge with IV meropenem, in that case she would need a PICC line placed prior to discharge. (2) Headache Is this a current diagnosis for this admission?: Yes Plan: Most likely related to caffeine withdrawal, much improvement with Imitrex , and is now much improved with 2 doses of Aleve and with re-instating her frequent Mountain Dew consumption. (3) Leukocytosis Qualifiers: Leukocytosis type: unspecified Qualified Code(s): D72.829 - Elevated white blood cell count, unspecified Is this a current diagnosis for this admission?: Yes Plan: reSolved with treatment of the infection. (4) Depression with anxiety Is this a current diagnosis for this admission?: Yes Plan: Patient was on multiple SSRIs in the past and she was also on Xanax for anxiety. She lost her Medicaid about a ago and discontinued her medications. She now has her Medicaid back and will be going to see her primary care doctor after discharge. Last night she was started on Ativan by the supervising producer and she has done well with it. I have decreased the Ativan dose to Ativan 1 mg p.o. every 6 hours as needed anxiety. I have also ordered Vistaril 25 mg dosing and have asked her to use that preferentially to see if that is effective for her, if it is we can discharge her with Vistaril. I told her we probably would not be able to discharge her with Ativan but that will be up to the discharging physician. I considered starting her on Lexapro but did not do so secondary to other medications potentially causing prolonged QT complications. (5) UTI (urinary tract infection) Qualifiers: Urinary tract infection type: acute cystitis Hematuria presence: without hematuria Qualified Code(s): N30.00 - Acute cystitis without hematuria Is this a current diagnosis for this admission?: Yes Plan: Please see treatment of pyelonephritis above. - Time Time Spent with patient: 25-34 minutes Medications reviewed and adjusted accordingly: Yes - Inpatient Certification Based on my medical assessment, after consideration of the patient's comorbidities, presenting symptoms, or acuity I expect that the services needed warrant INPATIENT care.: Yes I certify that my determination is in accordance with my understanding of Medicare's requirements for reasonable and necessary INPATIENT services [42 CFR 412.3e].: Yes Medical Necessity: Need for IV Antibiotics
[2018-11-27] MEDS: DIPHENHYDRAMINE HCL 50 MG/ML VIAL IV PRN ×3 (01:52→22:20)
[2018-11-27] MEDS: MEROPENEM 1 GM in NORMAL SALINE 50 ML IV SCH ×2 (02:12→14:36)
[2018-11-27] MEDS: HEPARIN SOD (PORCINE) 5,000 UNIT/ML 1 ML SYRINGE SUBCUT SCH ×3 (05:03→22:09)
[2018-11-27] MEDS: RINGERS SOLUTION,LACTATED 1,000 ML IV PRN (05:29)
[2018-11-27] MEDS: DOCUSATE SODIUM 100 MG CAPSULE PO SCH ×2 (08:59→17:09)
[2018-11-27] MEDS: NAPROXEN 375 MG TABLET PO PRN (09:14)
--- NOTE | 2018-11-27 14:05 | Progress Note ---
Provider Note Provider Note: ID Consult Note Asked to review patient's chart. Pt not seen or examined. Pt is a 28 year old woman who was admitted on 11/23 with R flank pain and vomiting of acute onset with R CVA tenderness appreciated on exam as well as fever. Blood cultures were negative. Urine culture grew E coli resistant to ampicillin, Unasyn, tetracyclines and TMP/SMX. Pt has allergies listed to amoxicillin and ciprofloxacin described as "anaphylaxis" and to cefuroxime axetil as "very hyperactive." The patient has been receiving IV meropenem as an inpatient, and she has improved to the point where discharge home is anticipated. Impression/Recommendations Whether to completely avoid cephalosporins depends upon the significance attached to the stated allergic reaction to cefuroxime of "very hyperactive." This does not appear to be consistent with an IgE-mediated reaction (anaphylaxis, hives) or a severe cutaneous reaction such as SJS/TEN and is more consistent with an adverse effect that may or may not even be attributed to that antibiotic specifically, rather than other medications or events that may have been occuring concurrently. Consider cefalexin 500 mg QID or cefpodoxime 200 mg PO BID to complete the remainder of 10 days of treatment. Macrobid and fosfomycin are not good options for pyelonephritis. If there is a good reason to avoid cephalosporins, once daily parenteral agents include IV gentamicin 5 mg/kg of adjusted body weight (consult pharmacy) to complete the remainder of 10 days of treatment. Otherwise, once daily IV Invanz can be an option, but carbapenems are very broad spectrum agents. More than 90% of patients who report penicillin allergy do not have a true IgE mediated reaction, and overdiagnosis of penicillin allergy leads to costly, less effective or inappropriate antibiotic therapy. It would benefit the patient if she can see an farm machinery mechanic as an outpatient to obtain a good allergy history and perform penicillin allergy testing. Francisco Javier Barraza MD [facility] Infectious Diseases pager [phone]
[2018-11-27] MEDS: LORAZEPAM 1 MG TABLET PO PRN (16:54)
[2018-11-27] MEDS: AMLODIPINE BESYLATE 5 MG TABLET PO SCH (16:54)
--- NOTE | 2018-11-27 18:45 | Progress Note Acknowledgement ---
Progress Note Acknowledgement Progess Note Acknowledgement: I, the undersigned member of the medical staff with appropriate privileges and with supervisory authority over Frida Wilson, [facility] practice allied health professional, acknowledge that I have reviewed the progress notes entered on this patient, and in my professional judgment believe that the assessment made and/or any care evidenced was appropriate
--- NOTE | 2018-11-27 18:59 | PDOC PROGRESS REPORT ---
Subjective Progress Note for:: 11/27/18 Subjective:: 28-year-old female with a past medical history of hypertension, reactive airway disease, migraines, obesity, depression, substance abuse (admits to marijuana) who was admitted with pyelonephritis. Patient was seen on afternoon rounds with her family members present. She is found resting in bed comfortably on room air. Initially she was quite pleasant but after discussing the need to obtain PICC line for long-term antibiotic she became agitated and refused to make eye contact or answer any further questions. She did deny fever, chills, dyspnea, abdominal pain, nausea and vomiting. Other than expressing frustration at not being discharged home today, the pa tiffani had no questions or concerns. No questions per family members. No concerns per nursing. Reason For Visit: ACUTE RIGHT PYELONEPHRITIS Physical Exam Vital Signs: Temp Pulse Resp BP Pulse Ox 98.7 F 66 24 H 150/99 H 100 11/27/18 15:59 11/27/18 15:59 11/27/18 15:59 11/27/18 15:59 11/27/18 15:59 Intake & Output 11/26/18 11/27/18 11/28/18 06:59 06:59 06:59 Intake Total 2215 2060 1730 Balance 2215 2060 1730 Weight 87.6 kg General appearance: PRESENT: no acute distress, obese, well-developed, well- nourished. ABSENT: cooperative Head exam: PRESENT: atraumatic, normocephalic Eye exam: PRESENT: conjunctiva pink, EOMI, PERRLA. ABSENT: scleral icterus Ear exam: PRESENT: normal external ear exam Mouth exam: PRESENT: moist, tongue midline Neck exam: ABSENT: carotid bruit, JVD, lymphadenopathy, thyromegaly Respiratory exam: PRESENT: symmetrical, unlabored, other - Room air Rectal exam: PRESENT: deferred Extremities exam: PRESENT: full ROM Neurological exam: PRESENT: alert, awake, oriented to person, oriented to place, oriented to time, oriented to situation, CN II-XII grossly intact. ABSENT: motor sensory deficit Psychiatric exam: PRESENT: agitated. ABSENT: homicidal ideation, suicidal ideation Skin exam: PRESENT: dry, intact, warm. ABSENT: cyanosis, rash Additional comments: Exam limited secondary to patient's participation. Results Laboratory Results: 11/26/18 05:40 11/26/18 05:40 Impressions: Chest X-Ray 11/23/18 18:32 IMPRESSION: NO SIGNIFICANT RADIOGRAPHIC FINDING IN THE CHEST. Abdomen/Pelvis CT 11/23/18 20:25 IMPRESSION: Findings consistent with right pyelonephritis. Head CT 11/24/18 00:00 IMPRESSION: NO ACUTE INTRACRANIAL FINDINGS. EVIDENCE OF ACUTE STROKE: NO. Assessment and Plan - Diagnosis (1) Pyelonephritis, acute Is this a current diagnosis for this admission?: Yes Plan: Urine culture is positive for E. coli with multiple resistances. Blood cultures are negative at 72 hours. Is admitted to the medical floor. She is provided gentle IV fluid hydration. She is empirically placed on IV meropenem secondary to her multiple drug allergies. Today the patient's mother does confirm that that amoxicillin and Ceftin resulted in generalized hives and pruritus. Ciprofloxacin resulted in anaphylactic reaction requiring multiple doses of epinephrine. Infectious disease was consulted; appreciate Dr. Barraza's assistance. As patient's mother confirm allergic reaction will need to arrange for PICC and daily infusion with gentamycin. Will need to discuss the patient's prior substance abuse history prior to discharge to home with PICC. (2) Hypertension Is this a current diagnosis for this admission?: Yes Plan: Patient is noted to have persistently elevated blood pressures; 117/66 - 158/94 with average being 150s/90s. 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 She does not take home medications. She is placed on a low-sodium diet. We will start Norvasc 5 mg daily. (3) Intractable nausea and vomiting Qualifiers: Vomiting type: unspecified Qualified Code(s): R11.2 - Nausea with vomiting, unspecified Is this a current diagnosis for this admission?: Yes Plan: Resolved. Secondary to #1. Patient now tolerating a regular diet with adequate p.o. intake. (4) Leukocytosis Qualifiers: Leukocytosis type: unspecified Qualified Code(s): D72.829 - Elevated white blood cell count, unspecified Is this a current diagnosis for this admission?: Yes Plan: Resolved; secondary to #1. (5) Hyperglycemia, unspecified Is this a current diagnosis for this admission?: Yes Plan: A1c is 5.2%. Random glucoses have been otherwise normal. Dietary discretion and lifestyle modification are encouraged. (6) Depression with anxiety Is this a current diagnosis for this admission?: Yes Plan: Patient was on multiple SSRIs in the past and she was also on Xanax for anxiety. Patient declines SSRI at this time. States that she will follow-up with her PCP to start care. Continue PRN Ativan and Vistaril. (7) Headache Is this a current diagnosis for this admission?: Yes Plan: Most likely related to caffeine withdrawal Imetrex and Naprosyn prn. - Time Time Spent with patient: 25-34 minutes Medications reviewed and adjusted accordingly: Yes Anticipated discharge: Home with Homehealth Within: within 24 hours
[2018-11-27] MEDS ORDERED: GENTAMICIN SULFATE 0 MG in DEXTROSE 5%-WATER 100 ML IV NR (19:00)
[2018-11-27] MEDS ORDERED: DEXTROSE 5% IV SCH (23:00)
[2018-11-27] MEDS ORDERED: GENTAMICIN SULFATE IV SCH (23:00)
[2018-11-27] MEDS ORDERED: ZOLPIDEM TARTRATE 5 MG TABLET PO ONE (23:00)
[2018-11-27] MEDS ORDERED: WATER IV SCH (23:00)
[2018-11-28 06:08] LABS: HEMOGLOBIN 12.3 g/dL (12.0-15.5); MEAN CORPUSCULAR HEMOGLOBIN 30.1 pg (27.0-33.4); MEAN CORPUSCULAR HGB CONC 34.1 g/dL (32.0-36.0); MEAN CORPUSCULAR VOLUME 88 fl (80-97); PLATELET COUNT 335 10^3/uL (150-450); RED BLOOD COUNT 4.09 10^6/uL (3.72-5.28); RED CELL DISTRIBUTION WIDTH 13.5 % (11.5-14.0); WHITE BLOOD COUNT 6.7 10^3/uL (4.0-10.5)
[2018-11-28] MEDS: HEPARIN SOD (PORCINE) 5,000 UNIT/ML 1 ML SYRINGE SUBCUT SCH ×2 (06:11→14:16)
[2018-11-28 06:36] LABS: ANION GAP 8 (5-19); BLOOD UREA NITROGEN 6 mg/dL (7-20); CALCIUM 8.5 mg/dL (8.4-10.2); CARBON DIOXIDE 22 mmol/L (22-30); CHLORIDE 108 mmol/L (98-107); GLUCOSE 97 mg/dL (75-110); POTASSIUM 4.4 mmol/L (3.6-5.0); SODIUM 138.3 mmol/L (137-145)
[2018-11-28] MEDS ORDERED: GENTAMICIN SULFATE 0 MG in DEXTROSE 5%-WATER 100 ML IV NR ×2 (08:00→12:45)
[2018-11-28] MEDS: DOCUSATE SODIUM 100 MG CAPSULE PO SCH (10:30)
[2018-11-28] MEDS: NAPROXEN 375 MG TABLET PO PRN (10:40)
[2018-11-28] MEDS: AMLODIPINE BESYLATE 5 MG TABLET PO SCH (10:40)
--- NOTE | 2018-11-28 11:57 | RADIOLOGY REPORT (SQ) ---
EXAM DESCRIPTION: PICC INSERTION; FLUORO/CV PLACEMENT; U/S GUIDE FOR VASCULAR ACCESS COMPLETED DATE/TIME: 11/28/2018 11:41 am REASON FOR STUDY: Home antibiotic infusion; IV ABX COMPARISON: None. FLUOROSCOPY TIME: 18 seconds 2 images saved to PACS. TECHNIQUE: Fluoroscopic and ultrasound guided PICC placement. LIMITATIONS: None. PROCEDURE: After written consent and assessment were obtained, the patient was brought into the fluo roscopy room and placed supine on the table. Ultrasound evaluation of potential access sites were per formed. After successfully identifying a patent right basilic vein, the right arm was prepped and alcides ped in a sterile fashion along with the ultrasound probe. The entry site was anesthetized with 1% lid ocaine. A 21 gauge 7 cm needle was advanced through the skin and into the basilic vein under live ult rasound guidance. An ultrasound image was saved to PACS confirming access site. A .018 guide wire w as then inserted through the needle and into the venous system. The needle was then removed and an 11 blade scalpel was used to make a 1cm skin incision. A 5 fr peel-away sheath was advanced over the w chris and into the venous system. A measurement was then made using the existing wire and live fluorosc opic guidance. The wire was then removed and trimmed. The PICC was advanced through the peel-away she ath and into the venous system. The peel-away sheath was removed and the catheter was adhered to the patients arm with a stat lock. The catheter was then aspirated and flushed and a sterile bandage was placed over the access site. A fluoroscopic spot image was saved to PACS confirming the catheter tip within the cavoatrial junction. IMPRESSION: SUCCESSFUL PLACEMENT OF A 5 FR DUAL LUMEN 36 CM PICC IN THE RIGHT BASILIC VEIN. COMMENT: Patient medication list reviewed: Yes- Quality ID# [id number]:Eligible professional attests to doc umenting in the medical record they obtained, updated, or reviewed the patient's current medications. . Quality ID 145: Final reports for procedures using fluoroscopy that document radiation exposure tawny geovani, or exposure time and number of fluorographic images (if radiation exposure indices are not avail able) Quality ID #76: The patient was prepped and draped using maximum sterile barrier technique including cap, mask, sterile gown, sterile gloves, a large sterile sheet, hand hygiene, and 2% Chlorhexidine fo r cutaneous antisepsis. When ultrasound is used, sterile ultrasound techniques are followed requiring sterile gel and sterile probes. TECHNICAL DOCUMENTATION: JOB ID: [id number] [employer]- All Rights Reserved rev-09/30 Reading location - IP/workstation name: [email or web address]
[2018-11-28] MEDS ORDERED: NORMAL SALINE 10 ML SDV (AFTER EACH USE) IV PRN (13:30)
[2018-11-28] MEDS ORDERED: DEXTROSE 5% IV ONE (15:15)
[2018-11-28] MEDS ORDERED: GENTAMICIN SULFATE IV ONE (15:15)
[2018-11-28] MEDS ORDERED: WATER IV ONE (15:15)
[2018-11-28 16:40] VITALS: BP 130/82
[2018-11-28] MEDS ORDERED: NORMAL SALINE 10 ML SDV (SCHEDULED) IV SCH (22:00)
--- NOTE | 2018-11-30 22:07 | PDOC DISCHARGE SUMMARY ---
General - Admit/Disc Date/PCP Admission Date/Primary Care Provider: 11/23/18 22:44 RYAN CAAL, Discharge Date: 11/28/17 - Discharge Diagnosis (1) Pyelonephritis, acute Is this a current diagnosis for this admission?: Yes (2) Hypertension Is this a current diagnosis for this admission?: Yes (3) Intractable nausea and vomiting Is this a current diagnosis for this admission?: Yes (4) Leukocytosis Is this a current diagnosis for this admission?: Yes (5) Hyperglycemia, unspecified Is this a current diagnosis for this admission?: Yes (6) Depression with anxiety Is this a current diagnosis for this admission?: Yes (7) Headache Is this a current diagnosis for this admission?: Yes - Additional Information Resuscitation Status: Full Code Discharge Diet: Cardiac Discharge Activity: Activity As Tolerated, Balance Activity w/Rest Prescriptions: Amlodipine Besylate [Norvasc 5 mg Tablet] 5 mg PO DAILY #30 tablet Hydroxyzine Pamoate [Vistaril 25 mg Capsule] 25 mg PO Q6HP PRN #30 capsule PRN Reason: Naproxen [Naprosyn 375 mg Tablet] 375 mg PO Q12HP PRN #20 tablet PRN Reason: Home Medications: Acetaminophen [Tylenol 325 mg Tablet] 650 mg PO Q4HP PRN tablet 11/28/18 Amlodipine Besylate [Norvasc 5 mg Tablet] 5 mg PO DAILY #30 tablet 11/28/18 Diphenhydramine HCl [Benadryl 25 mg Capsule] 25 mg PO Q4HP PRN capsule 11/28/18 Docusate Sodium [Colace 100 mg Capsule] 100 mg PO BID capsule 11/28/18 Gentamicin Sulfate [Garamycin Inj 80 mg/2 ml Vial] 0 mg IV .PHARMACY TO DOSE vial 11/28/18 Hydroxyzine Pamoate [Vistaril 25 mg Capsule] 25 mg PO Q6HP PRN #30 capsule 11/28/18 Naproxen [Naprosyn 375 mg Tablet] 375 mg PO Q12HP PRN #20 tablet 11/28/18 History of Present Illness History of Present Illness: Per H&P by Dr. Griffiths: RHETT CADENA is a 28 year old female who presented to the emergency room with a 2 day history of right flank pain. She admits the sudden onset of a moderately severe, constant, sharp pain in her right flank without radiation during her normal activities yesterday. The pain has been accompanied by headache, nausea, vomiting, diarrhea, urinary frequency, urinary urgency and a subjective fever with chills. She denies prior similar symptoms and has not identified any aggravating or ameliorating factors for her right flank pain. In the emergency room she was found to have an elevated white count with a significant pyuria and acute right pyelonephritis by CT of the abdomen and pelvis. She was subsequently admitted to the hospital for further evaluation and treatment. Hospital Course Hospital Course: The patient was admitted to the medical floor on continuous cardiac telemetry. She was empirically placed on meropenem awaiting culture results. Unfortunately, the patient's urine culture treated E. coli with multiple resistances. Due to the patient antibiotic allergies, infectious disease was consulted. Dr. Barraza has recommended that the patient complete a 10-day course of IV gentamicin. PICC line was placed and arrangements have been made for the patient to receive home infusion and home health nursing services to complete her antibiotic therapy at home. The patient symptoms have resolved; she is now asymptomatic, and has been afebrile for greater than 48 hours, with normal WBCs. Final blood cultures are negative. The patient is a history of hypertension. She does have a history of - induced hypertension but has not required antihypertensive therapy for delivery of her child. She was started on Norvasc 5 mg nightly with excellent response and is agreeable to continuing this medication following discharge. At time of discharge, the patient is in stable condition, asymptomatic, and tolerating a regular diet with adequate fluid intake. She is discharged home with home health nursing and infusion therapy once daily gentamicin infusion x10 days. She is advised to follow-up with her primary care provider within 1 week. She is instructed to take her medications as prescribed. She is encouraged to return to the emergency department as needed for any concerning symptoms. Physical Exam Vital Signs: Temp Pulse Resp BP Pulse Ox 98.9 F 72 16 143/90 H 100 11/28/18 16:22 11/28/18 16:22 11/28/18 16:22 11/28/18 16:22 11/28/18 16:22 Intake & Output 11/29/18 11/30/18 12/01/18 06:59 06:59 06:59 Intake Total 1420.875 Balance 1420.875 General appearance: PRESENT: no acute distress, obese, well-developed, well-nourished Head exam: PRESENT: atraumatic, normocephalic Eye exam: PRESENT: conjunctiva pink, EOMI, PERRLA. ABSENT: scleral icterus Ear exam: PRESENT: normal external ear exam Mouth exam: PRESENT: moist, tongue midline Neck exam: ABSENT: carotid bruit, JVD, lymphadenopathy, thyromegaly Respiratory exam: PRESENT: clear to auscultation geremias. ABSENT: rales, rhonchi, wheezes Cardiovascular exam: PRESENT: RRR. ABSENT: diastolic murmur, rubs, systolic murmur Pulses: PRESENT: normal dorsalis pedis pul Vascular exam: PRESENT: normal capillary refill GI/Abdominal exam: PRESENT: normal bowel sounds, soft. ABSENT: distended, guarding, mass, organolmegaly, rebound, tenderness Rectal exam: PRESENT: deferred Extremities exam: PRESENT: full ROM. ABSENT: calf tenderness, clubbing, pedal edema Neurological exam: PRESENT: alert, awake, oriented to person, oriented to place, oriented to time, oriented to situation, CN II-XII grossly intact. ABSENT: motor sensory deficit Psychiatric exam: PRESENT: appropriate affect, normal mood. ABSENT: homicidal ideation, suicidal ideation Skin exam: PRESENT: dry, intact, warm. ABSENT: cyanosis, rash Results Laboratory Results: 11/28/18 05:20 11/28/18 05:20 Impressions: Chest X-Ray 11/23/18 18:32 IMPRESSION: NO SIGNIFICANT RADIOGRAPHIC FINDING IN THE CHEST. Abdomen/Pelvis CT 11/23/18 20:25 IMPRESSION: Findings consistent with right pyelonephritis. Head CT 11/24/18 00:00 IMPRESSION: NO ACUTE INTRACRANIAL FINDINGS. EVIDENCE OF ACUTE STROKE: NO. Guidance Fluoroscopy 11/28/18 00:00 IMPRESSION: SUCCESSFUL PLACEMENT OF A 5 FR DUAL LUMEN 36 CM PICC IN THE RIGHT BASILIC VEIN. Interventional Vascular Procedure 11/28/18 00:00 IMPRESSION: SUCCESSFUL PLACEMENT OF A 5 FR DUAL LUMEN 36 CM PICC IN THE RIGHT BASILIC VEIN. PICC Line Insertion 11/28/18 00:00 IMPRESSION: SUCCESSFUL PLACEMENT OF A 5 FR DUAL LUMEN 36 CM PICC IN THE RIGHT BASILIC VEIN. Qualifiers - * PATIENT BEING DISCHARGED WITH ANY OF THE FOLLOWING DIAGNOSIS: No Acute Heart Failure - Is this a Heart Failure Patient?: No Plan Discharge Plan: Patient is discharged to home with home health nursing and infusion therapy services. To complete a 10 day course of gentamycin Follow up with primary care provider as scheduled. Recommend that she see an digital director for testing of multiple antibiotic reactions to confirm if true allergy exists. Return to the emergency department as needed for concerning symptoms. Time Spent: Greater than 30 Minutes
== END 2018-11-28 16:46 | disposition home health service (06) | DRG 690 ==
LOC: ER 17:58 → EH 22:44 → 5 11-24 00:14
PROVIDERS: ADMIT Emergency Medicine; ATTEND Emergency Medicine
PROC: 02HV33Z Insertion of Infusion Device into Superior Vena Cava, Percutaneous Approach (ICD-10-PCS; principal; 2018-11-28)
PROC: B518ZZA Fluoroscopy of Superior Vena Cava, Guidance (ICD-10-PCS; 2018-11-28)
PROC: B548ZZA Ultrasonography of Superior Vena Cava, Guidance (ICD-10-PCS; 2018-11-28)
DX: N10 Acute pyelonephritis (principal); D72.829 Elevated white blood cell count, unspecified; G43.909 Migraine, unspecified, not intractable, without status migrainosus; B96.20 Unspecified Escherichia coli [E. coli] as the cause of diseases classified elsewhere; F41.8 Other specified anxiety disorders; F12.10 Cannabis abuse, uncomplicated; Z16.30 Resistance to unspecified antimicrobial drugs; R73.9 Hyperglycemia, unspecified; I10 Essential (primary) hypertension; K21.9 Gastro-esophageal reflux disease without esophagitis
CPT/HCPCS: 36415; 36569; 70450; 71046; 74177; 76937; 77001; 80048; 80053; 80061; 81001; 82803; 82962; 83036; 83605; 83735; 84439; 84443; 84481; 84703; 85025; 85027; 85610; 87040; 87086; 87088; 87186; 93005; 93010; 96361; 96365; 96366; 96367; 96375; 99291; J0131; J1200; J1580; J1642; J1644; J1885; J2060; J2185; J2270; J2405; J2550; J2765; J3030; J3490; J7030; J7060; J7120; S0028

== ENCOUNTER 2018-12-07 10:54 | Emergency (ER) | payer MEDICAID ==
--- NOTE | 2018-12-07 11:15 | ER Document Report ---
ED Medical Screen (RME) - General Chief Complaint: Arm Pain Stated Complaint: ARM PAIN Time Seen by Provider: 12/07/18 11:04 Primary Care Provider: JEREMY NGUYEN MD [Primary Care Provider] - Follow up as needed Notes: Patient is a 28-year-old female presents to the emergency department with pain in her right arm. Patient states she had a PICC line placed on 11/28/2018 for pyelonephritis. States been giving herself gentamicin infusions 1500 hrs. every day. States she gave herself an infusion yesterday at 1500 hrs. with no issues. States this morning woke up with increased pain in the right upper extremity. Patient states that her pain is not necessarily around the PICC yet hurts in her entire right arm. Patient's denying any fevers or redness around the PICC line site. GENERAL: Alert, interacts well. No acute distress. EXTREMITIES: Moves all 4 extremities spontaneously. No edema, normal radial and dorsalis pedis pulses bilaterally. No cyanosis. PICC line placed to right inner upper arm, no erythema noted around the site. I have greeted and performed a rapid initial assessment of this patient. A comprehensive ED assessment and evaluation of the patient, analysis of test results and completion of the medical decision making process will be conducted by additional ED providers. I have specifically instructed the patient or family members with the patient to immediately return to any nursing staff should anything change in the patient's condition or with their chief complaint. This medical record was dictated with voice recognizing software. There may be grammatical, syntax errors that are unintended. TRAVEL OUTSIDE OF THE [place] IN LAST 30 DAYS: No - Related Data Allergies/Adverse Reactions: amoxicillin [Amoxicillin] Allergy (Verified 12/07/18 10:57) Anaphylaxis cefuroxime axetil [From Ceftin] Allergy (Verified 12/07/18 10:57) VERY HYPERACTIVE ciprofloxacin [From Cipro] Allergy (Verified 12/07/18 10:57) Anaphylaxis Past Medical History - Social History Chew tobacco use (# tins/day): No Frequency of alcohol use: None Drug Abuse: None - Past Medical History Cardiac Medical History: Reports: Hx Hypertension - D/T PREECLAMPSIA NO LONGER HYPERTENSIVE Denies: Hx Coronary Artery Disease, Hx Heart Attack Pulmonary Medical History: Reports: Hx Asthma - ONLY WHEN SICK; Reactive Airway Disease, Hx Pneumonia Denies: Hx Bronchitis, Hx COPD Neurological Medical History: Reports: Hx Migraine. Denies: Hx Cerebrovascular Accident, Hx Seizures Endocrine Medical History: Denies: Hx Diabetes Mellitus Type 1, Hx Diabetes Mellitus Type 2, Hx Hyperthyroidism, Hx Hypothyroidism Renal/ Medical History: Denies: Hx Peritoneal Dialysis GI Medical History: Reports: Hx Gastroesophageal Reflux Disease. Denies: Hx Cirrhosis, Hx Hepatitis Musculoskeltal Medical History: Denies Hx Arthritis, Denies Hx Fibromyalgia Skin Medical History: Denies Hx Eczema, Denies Hx Psoriasis Psychiatric Medical History: Reports: Hx Depression Infectious Medical History: Denies: Hx Hepatitis Past Surgical History: Reports: Hx Section, Hx Cholecystectomy - Immunizations Immunizations up to date: Yes Hx Diphtheria, Pertussis, Tetanus Vaccination: Yes Physical Exam - Vital signs Vitals: Temp Pulse Resp BP Pulse Ox 98.3 F 100 25 H 144/100 H 100 12/07/18 11:02 12/07/18 11:02 12/07/18 11:02 12/07/18 11:02 12/07/18 11:02 Course - Vital Signs Vital signs: Temp Pulse Resp BP Pulse Ox 98.3 F 100 25 H 144/100 H 100 12/07/18 11:02 12/07/18 11:02 12/07/18 11:02 12/07/18 11:02 12/07/18 11:02 Doctor's Discharge - Discharge Referrals: JEREMY NGUYEN MD [Primary Care Provider] - Follow up as needed
[2018-12-07 11:37] LABS: ABSOLUTE BASOPHILS # (AUTO) 0.1 10^3/uL (0.0-0.2); ABSOLUTE EOSINOPHILS # (AUTO) 0.1 10^3/uL (0.0-0.6); ABSOLUTE LYMPHOCYTES (AUTO) 2.4 10^3/uL (0.5-4.7); ABSOLUTE MONOCYTES (AUTO) 0.9 10^3/uL (0.1-1.4); ABSOLUTE NEUT (AUTO) 9.6 10^3/uL (1.7-8.2); BASOPHILS % (AUTO) 0.8 % (0-2); EOSINOPHILS % (AUTO) 1.1 % (0-6); HEMATOCRIT 40.7 % (36.0-47.0); HEMOGLOBIN 13.9 g/dL (12.0-15.5); LYMPHOCYTES % (AUTO) 18.3 % (13-45); MEAN CORPUSCULAR VOLUME 88 fl (80-97); MONOCYTES % (AUTO) 6.7 % (3-13); PLATELET COUNT 481 10^3/uL (150-450); RED BLOOD COUNT 4.62 10^6/uL (3.72-5.28); RED CELL DISTRIBUTION WIDTH 13.7 % (11.5-14.0); SEGMENTED NEUTROPHILS % (AUTO) 73.1 % (42-78); TOTAL CELLS COUNTED % (AUTO) 100 %; WHITE BLOOD COUNT 13.1 10^3/uL (4.0-10.5)
[2018-12-07 11:40] LABS: APPEARANCE,URINE SLIGHTLY-CLOUDY; BILIRUBIN,URINE NEGATIVE (NEGATIVE); COLOR,URINE YELLOW; GLUCOSE, URINE NEGATIVE (NEGATIVE); KETONES,URINE NEGATIVE (NEGATIVE); LEUKOCYTE ESTERASE,URINE SMALL (NEGATIVE); NITRITE,URINE NEGATIVE (NEGATIVE); PROTEIN,URINE NEGATIVE (NEGATIVE); URINE SPECIFIC GRAVITY 1.017; UROBILINOGEN,URINE NEGATIVE mg/dL (<2.0)
[2018-12-07 11:57] LABS: ANION GAP 12 (5-19); BLOOD UREA NITROGEN 16 mg/dL (7-20); CALCIUM 9.8 mg/dL (8.4-10.2); CARBON DIOXIDE 24 mmol/L (22-30); CHLORIDE 103 mmol/L (98-107); GLUCOSE 100 mg/dL (75-110); POTASSIUM 4.4 mmol/L (3.6-5.0)
[2018-12-07 12:18] LABS: INTERNATIONAL RATION (INR) 1.05; PROTHROMBIN TIME 13.7 SEC (11.4-15.4)
[2018-12-07 12:19] LABS: PARTIAL THROMBOPLASTIN TIME 31.7 SEC (23.5-35.8)
--- NOTE | 2018-12-07 12:28 | ER Document Report ---
Addendum entered and electronically signed by EDMUND FERGUSON PA-C 12/07/18 18:42: Discharge - Discharge Clinical Impression: Deep vein thrombosis (DVT) of right upper extremity Qualifiers: Affected thrombotic vein of extremity: other upper extremity vein Chronicity: acute Qualified Code(s): I82.621 - Acute embolism and thrombosis of deep veins of right upper extremity Condition: Stable Disposition: HOME, SELF-CARE Instructions: DVT Outpatient Treatment ([facility]) Additional Instructions: Maintain adequate fluid and food intake Take home medications as directed Healthy diet range of motion activity Monitor blood pressure daily and keep a log Monitor symptoms for any acute changes Recheck with your PCM in 2-3 days Consider a follow-up with Vascular Return to the ED with any worsening symptoms and/or development of fever, he adache, chest pain, palpitations, syncope, shortness of breath, trouble breathing, abdominal pain, n/v/d, blood in stool/urine, loss of control of bowel/bladder, urinary retention, muscle weakness/paralysis, numbness/tingling, or other worsening symptoms that are concerning to you. Prescriptions: Tramadol HCl [Ultram 50 mg Tablet] 50 mg PO Q4HP PRN #15 tab PRN Reason: Apixaban [Eliquis] 5 - 10 mg PO ASDIR PRN #70 tab PRN Reason: Forms: Elevated Blood Pressure Referrals: JEREMY NGUYEN MD [Primary Care Provider] - Follow up as needed OLIVER JASSO MD [ACTIVE STAFF] - Follow up in 3-5 days Original Note: ED General - General Chief Complaint: Arm Pain Stated Complaint: ARM PAIN Time Seen by Provider: 12/07/18 11:04 Primary Care Provider: JEREMY NGUYEN MD [Primary Care Provider] - Follow up as needed TRAVEL OUTSIDE OF THE [place] IN LAST 30 DAYS: No - HPI Notes: Patient is a 28-year-old female with a history of anxiety/depression, hypertension, recent admission for UTI and on gentamicin infusions via a PICC line in her right arm. Patient states that she started noticing pain and swelling to the arm yesterday. Patient states that movement makes the pain wors e. She is also had pain with deep inspiration near the right superior side of her chest. She is not on any blood thinning medications. Patient does admit to smoking. Denies any prolonged immobilization, distance travel, recent surgery/trauma, personal cancer history, hormone use, or previous DVT/PE. Denies any headache, fever, URI, sore throat, chest pain, palpitations, syncope, cough, wheeze, abdominal pain, nausea/vomiting/diarrhea, urinary retention, dysuria, hematuria, loss of control of bowel or bladder, numbness/tingling, saddle anesthesia, muscle paralysis, or rash. Upon further interview of pt: Pt's father had 2 PE's in the past, one after cholecystecomy and another unprovo ked years later with questions coag deficit per father. - Related Data Allergies/Adverse Reactions: amoxicillin [Amoxicillin] Allergy (Verified 12/07/18 10:57) Anaphylaxis cefuroxime axetil [From Ceftin] Allergy (Verified 12/07/18 10:57) VERY HYPERACTIVE ciprofloxacin [From Cipro] Allergy (Verified 12/07/18 10:57) Anaphylaxis Past Medical History - Social History Smoking Status: Current Every Day Smoker Chew tobacco use (# tins/day): No Frequency of alcohol use: None Drug Abuse: None Family History: CAD, DM, Hypertension, Malignancy, Other - Psychiatric illnesses Patient has suicidal ideation: No Patient has homicidal ideation: No - Past Medical History Cardiac Medical History: Reports: Hx Hypertension - D/T PREECLAMPSIA NO LONGER HYPERTENSIVE Denies: Hx Coronary Artery Disease, Hx Heart Attack Pulmonary Medical History: Reports: Hx Asthma - ONLY WHEN SICK; Reactive Airway Disease, Hx Pneumonia Denies: Hx Bronchitis, Hx COPD Neurological Medical History: Reports: Hx Migraine. Denies: Hx Cerebrovascular Accident, Hx Seizures Endocrine Medical History: Denies: Hx Diabetes Mellitus Type 1, Hx Diabetes Alexus litus Type 2, Hx Hyperthyroidism, Hx Hypothyroidism Renal/ Medical History: Denies: Hx Peritoneal Dialysis GI Medical History: Reports: Hx Gastroesophageal Reflux Disease. Denies: Hx Cirrhosis, Hx Hepatitis Musculoskeletal Medical History: Denies Hx Arthritis, Denies Hx Fibromyalgia Skin Medical History: Denies Hx Eczema, Denies Hx Psoriasis Psychiatric Medical History: Reports: Hx Depression Infectious Medical History: Denies: Hx Hepatitis Past Surgical History: Reports: Hx Section, Hx Cholecystectomy - Immunizations Immunizations up to date: Yes Hx Diphtheria, Pertussis, Tetanus Vaccination: Yes Review of Systems - Review of Systems -: Yes All other systems reviewed and negative Physical Exam - Vital signs Vitals: Temp Pulse Resp BP Pulse Ox 98.3 F 100 25 H 144/100 H 100 12/07/18 11:02 12/07/18 11:02 12/07/18 11:02 12/07/18 11:02 12/07/18 11:02 - Notes Notes: PHYSICAL EXAMINATION: GENERAL: Well-appearing, well-nourished and in no acute distress. HEAD: Atraumatic, normocephalic. EYES: Pupils equal round and reactive to light, extraocular movements intact, sclera anicteric, conjunctiva are normal. ENT: Nares patent and without discharge. oropharynx clear without exudates. No tonsilar hypertrophy or erythema. Moist mucous membranes. NECK: Normal range of motion, supple without lymphadenopathy LUNGS: Breath sounds clear to auscultation bilaterally and equal. No wheezes rales or rhonchi. HEART: Regular rate and rhythm without murmurs, rubs, gallops. Musculoskeletal: Rt arm: + asymmetry (larger R>L arm). + tenderness to palp of medial upper arm. N/V intact distal. No erythema, warmth, or purulence noted. Extremities: No cyanosis, clubbing, or edema b/l. Peripheral pulses 2+. Capillary refill less than 3 seconds. NEUROLOGICAL: Normal speech, normal gait. PSYCH: Normal mood, normal affect. SKIN: Warm, Dry, normal turgor, no rashes or lesions noted. Course - Re-evaluation Re-evalutation: 12/07/18 12:27 I was told by US tech that there is a DVT of the rt subclavian vein extending to where the PICC line is located at the basilic in the rt arm. Reviewed with Dr. Clemens and we will obtain a CTA chest to further evaluate. 12/07/18 15:32 I spoke with IR/Interventional Cardio through [facility] and he states that the PICC line can be removed and then start anticoagulant about 1 hr thereafter. 12/07/18 15:38 Dr. Jasso, vascular, called and stated that she does have an extensive DVT as above and it is okay to pull out the PICC line. 12/07/18 15:[address] Gross, hospitalist, who recommends outpatient management with eliquis starting tomorrow morning 10mg BID x1wk followed by 5mg BID x3-6mos. PICC line can be removed. Can give 1 dose of lovenox here before discharge. States admission is not warranted at this time. 12/07/18 18:25 PICC line was removed successfully without any complications. Dr. Clemens also at bedside for procedure by RN. Patient is an afebrile, well-hydrated, 28-year-old female who presents with a right upper extremity DVT. Vitals are acceptable without significant tach ycardia, tachypnea, or hypoxia. PE is otherwise unremarkable. Patient is nontoxic-appearing is able to tolerate p.o. without difficulty. Labs acceptable. CTA of the chest was unremarkable. See venous doppler results. No further work-up warranted. There is no evidence of neurovascular compromise, obvious tendon/leg rupture, obvious fracture/dislocation, septic joint, compartment syndrome. Patient was given Lovenox in the emergency department today. She will begin Eliquis tomorrow morning. Reviewed strict follow-up with her family provider/vascular. Return to the ED with any other wors ening/concerning symptoms. Patient is in agreement. Low suspicion for any ACS, PE, pneumothorax, pericarditis, dissection, respiratory compromise, severe dehydration, sepsis, meningitis, or other systemic emergent condition at this time. Patient is aware that her condition can change from initial presentation and she needs to monitor symptoms closely and seek medical attention for any acute changes. Recheck with vascular/PCM. Return to the ED with any other worsening/concerning symptoms. Patient in agreement. - Vital Signs Vital signs: Temp Pulse Resp BP Pulse Ox 97.6 F 98 18 144/100 H 97 12/07/18 17:52 12/07/18 17:52 12/07/18 17:52 12/07/18 11:02 12/07/18 17:52 - Laboratory Result Diagrams: 12/07/18 11:15 12/07/18 11:15 Laboratory results interpreted by me: 12/07/18 12/07/18 11:15 11:15 WBC 13.1 H Plt Count 481 H Absolute Neutrophils 9.6 H Ur Leukocyte Esterase SMALL H Discharge - Discharge Clinical Impression: Deep vein thrombosis (DVT) of right upper extremity Qualifiers: Affected thrombotic vein of extremity: other upper extremity vein Chronicity: acute Qualified Code(s): I82.621 - Acute embolism and thrombosis of deep veins of right upper extremity Condition: Stable Disposition: HOME, SELF-CARE Instructions: DVT Outpatient Treatment ([facility]) Additional Instructions: Maintain adequate fluid and food intake Take home medications as directed Healthy diet range of motion activity Monitor blood pressure daily and keep a log Monitor symptoms for any acute changes Recheck with your PCM in 2-3 days Consider a follow-up with Vascular Return to the ED with any worsening symptoms and/or development of fever, headache, chest pain, palpitations, syncope, shortness of breath, trouble breathing, abdominal pain, n/v/d, blood in stool/urine, loss of control of bowel/bladder, urinary retention, muscle weakness/paralysis, numbness/tingling, or other worsening symptoms that are concerning to you. Prescriptions: Apixaban [Eliquis] 5 - 10 mg PO ASDIR PRN #70 tab PRN Reason: Forms: Elevated Blood Pressure Referrals: JEREMY NGUYEN MD [Primary Care Provider] - Follow up as needed OLIVER JASSO MD [ACTIVE STAFF] - Follow up in 3-5 days
[2018-12-07] MEDS ORDERED: MORPHINE SULFATE 10 MG/ML INJ IV ONE ×2 (15:14→17:13)
[2018-12-07] MEDS ORDERED: ENOXAPARIN SODIUM INJ 100 MG/1 ML DISP.SYRIN SUBCUT SCH (15:15)
--- NOTE | 2018-12-07 15:15 | RADIOLOGY REPORT (SQ) ---
EXAM DESCRIPTION: CTA CHEST COMPLETED DATE/TIME: 12/07/2018 2:27 pm REASON FOR STUDY: Rt subclavian dvt COMPARISON: None. TECHNIQUE: CT scan of the chest performed using helical scanning technique with dynamic intravenous contrast injection. Images reviewed with lung, soft tissue and bone windows. Reconstructed coronal and sagittal MPR images reviewed. Additional 3 dimensional post-processing performed to develop Maximal Intensity Projection images (MS P). All images stored on PACS. All CT scanners at this facility use dose modulation, iterative reconstruction, and/or weight based d osing when appropriate to reduce radiation dose to as low as reasonably achievable (ALARA). [facility]: Dose Right [facility]: CareDose [facility]: Dose Right [facility]: Teradose 4D [facility]: Bgifty CONTRAST TYPE AND DOSE: contrast/concentration: Isovue 350.00 mg/ml; Total Contrast Delivered: 61.0 ml; Total Saline Delivered: 70.0 ml Contrast bolus adequate for pulmonary arteries and aorta. RENAL FUNCTION: BUN 16 creatinine 0.6 RADIATION DOSE: CT Rad equipment meets quality standard of care and radiation dose reduction techniq ues were employed. CTDIvol: 6.6 - 26.1 mGy. DLP: 903 mGy-cm. . LIMITATIONS: None. FINDINGS: LUNGS AND PLEURA: No masses, infiltrates, or pneumothorax. No pleural effusions or pleura l calcifications. AORTA AND GREAT VESSELS: No aneurysm. No dissection. HEART: No pericardial effusion. No significant coronary artery calcifications. PULMONARY ARTERIES: No emboli visualized in the main pulmonary arteries or the segmental branches. HILAR AND MEDIASTINAL STRUCTURES: No identified masses or abnormal nodes. HARDWARE: None in the chest. UPPER ABDOMEN: No significant findings. Limited exam. THYROID AND OTHER SOFT TISSUES: No masses. No adenopathy. BONES: No acute or significant finding. 3D MIPS: Confirm above findings. OTHER: No other significant finding. IMPRESSION: There is no evidence of pulmonary embolus. There is no aortic aneurysm or dissection. COMMENT: Quality ID # [id number]: Final reports with documentation of one or more dose reduction techniques (e.g., Automated exposure control, adjustment of the mA and/or kV according to patient size, use of iterative reconstruction technique) TECHNICAL DOCUMENTATION: JOB ID: [id number] [employer]- All Rights Reserved Reading location - IP/workstation name: [email or web address]
[2018-12-07] MEDS ORDERED: AMLODIPINE BESYLATE 5 MG TABLET PO ONE (17:13)
[2018-12-07] MEDS ORDERED: HYDROXYZINE PAMOATE 25 MG CAPSULE PO ONE (17:13)
[2018-12-07] MEDS ORDERED: GENTAMICIN SULFATE INJ 80 MG/2 ML VIAL IM ONE (17:20)
[2018-12-07] MEDS ORDERED: FAMOTIDINE 20 MG TABLET PO ONE (17:51)
[2018-12-07 19:07] VITALS: BP 157/81
--- NOTE | 2018-12-07 20:11 | XCELERA REPORT ---
[address] [address] Upper Extremity Venous Evaluation Name: RHETT CADENA Age: 28 yrs Gender: Female : 1990 Patient Status: Emergency Patient Location: ER Study Date: 12/07/2018 11:29 AM Procedure: Unilateral duplex scan of the right upper extremity veins was performed, including responses to compression and other maneuvers. Reason For Study: Right upper arm w/ PICC, pain Ordering Physician: ALIX PERDOMO Performed By: Arin Byers Right Side Venous Evaluation Abnormal vessel filling , echolucent content, no compression or Colour flow in the Subclavian, Axillary and Basilic veins. PICC in Basilic vein noted. Critical Findings Discussed with Reese Retana in the ER at about 1400 hours. Interpretation Summary Quite extensive deep and superficial thrombosis in right upper extremity veins. Appears to be associated with a PICC line. : ALIX PERDOMO > Tramaine Khan
--- NOTE | 2018-12-07 20:37 | EKG REPORT ---
SEVERITY:- OTHERWISE NORMAL ECG - SINUS TACHYCARDIA : Confirmed by: Prudencio Mc 07-Dec-2018 20:37:10
== END 2018-12-07 19:08 | disposition home or self-care (01) ==
LOC: ER 10:54
DX: I82.621 Acute embolism and thrombosis of deep veins of right upper extremity (principal); F17.200 Nicotine dependence, unspecified, uncomplicated; Z90.49 Acquired absence of other specified parts of digestive tract; Z88.0 Allergy status to penicillin
CPT/HCPCS: 93005; 96376; 99284; 96372; 96374; 96375; 36415; 87086; 87070; 85025; 85610; 85730; 80048; 81001; 93971 ×2; 71275; 93010; J3490 ×3; J1580; J2270; J1650